=== PATIENT | female | born 1950 | race Caucasian/White ===

== ENCOUNTER → 2017-08-06 07:05 | Outpatient (CLI) | payer OTHER, SELFPAY ==
[2017-08-06 10:37] LABS: Vitamin D,25 Hydroxy 22.5 ng/mL (29.95-100.01)
[2017-08-06 10:45] LABS: Anion Gap 8 (5-15); BUN 22 mg/dL (7-18); BUN/Creat Ratio 26.4 RATIO (10-20); Chloride 103 mmol/L (98-107); Cholesterol 189 mg/dL (200); Creatinine, Serum 0.83 mg/dL (0.55-1.02); EST Glomerular Filtration Rate 73 mL/min (>60); Est Glom Filt Rate - Afr Amer 89 mL/min (>60); Glucose 112 mg/dL (74-106); High Density Lipoprotein 31 mg/dL; Potassium 3.5 mmol/L (3.5-5.1); Sodium Level 140 mmol/L (136-145); Triglycerides 237 mg/dL; Very Low Density Lipoprotein 47 mg/dL (5-40)
== END ==
PROVIDERS: Family Provider Family Medicine; PCP Family Medicine; Visit Provider Family Medicine
DX: I10 Essential (primary) hypertension (principal); E55.9 Vitamin D deficiency, unspecified
CPT/HCPCS: 36415; 80048; 80061; 82306

== ENCOUNTER → 2017-08-11 08:54 | Outpatient (CLI) | payer OTHER, SELFPAY ==
--- NOTE | 2017-08-11 09:01 | RAD_ITS ---
STUDY: X-RAY - RIGHT KNEE REASON FOR EXAM: Female, 66 years old. Osteoarthritis. TECHNIQUE: 4 view(s) of the knee. COMPARISON: None. FINDINGS: Normal visualized distal femur. Degenerative spurring along the medial and lateral tibial plateaus. Normal proximal tibiofibular articulation. There is severe degenerative arthrosis of the medial femorotibial compartment with severe joint space narrowing. Normal lateral femorotibial compartment. There is moderate degenerative arthrosis of the patellofemoral articulation. Small joint effusion. RAD/Knee 4 or More Views IMPRESSION: Degenerative arthrosis. Electronically Signed: Kel Quinn MD at 14:08 EDT Tel [phone], Service support ,
--- NOTE | 2017-08-11 09:02 | RAD_ITS ---
STUDY: X-RAY - LEFT KNEE REASON FOR EXAM: Female, 66 years old. Osteoarthritis. TECHNIQUE: 4 view(s) of the knee. COMPARISON: None. FINDINGS: Degenerative spurring along the lateral compartment of knee joint. Degenerative spurring along the lateral tibial plateau. Normal proximal tibiofibular articulation. There is severe degenerative arthrosis of the medial femorotibial compartment with severe joint space narrowing. There is moderate degenerative arthrosis of the lateral femorotibial compartment with moderate joint space narrowing. There is moderate degenerative arthrosis of the patellofemoral articulation. Small joint effusion. RAD/Knee 4 or More Views IMPRESSION: Degenerative arthrosis. Electronically Signed: Kel Quinn MD at 14:09 EDT Tel [phone], Service support ,
== END ==
PROVIDERS: Family Provider Family Medicine; PCP Family Medicine; Visit Provider Family Medicine
DX: M17.0 Bilateral primary osteoarthritis of knee (principal)
CPT/HCPCS: 73564

== ENCOUNTER → 2018-02-17 16:30 | Outpatient (CLI) | payer OTHER, SELFPAY ==
--- NOTE | 2018-02-17 16:33 | RAD_ITS ---
STUDY: X-RAY - LEFT WRIST REASON FOR EXAM: Female, 67 years old. Left wrist pain gradually getting worse, very painful to move now. Limited movement. TECHNIQUE: 4 view(s) of the wrist were obtained. COMPARISON: None. FINDINGS: Normal visualized distal radius and ulna. Normal radiocarpal articulation. Normal distal radioulnar articulation. Normal carpal bones. Normal carpal articulations. There is minimal degenerative arthrosis of the carpometacarpal articulation of the thumb. Normal second through fifth carpometacarpal articulations. Normal visualized metacarpal bones. The soft tissue structures are unremarkable. RAD/Wrist min 3 Views IMPRESSION: Minimal degenerative changes of the first carpometacarpal joint. Electronically Signed: Kenyetta Bonilla MD at 7:28 EDT , Service support ,
== END ==
PROVIDERS: Family Provider Family Medicine; PCP Family Medicine; Referring Provider Family Medicine; Visit Provider Family Medicine
DX: M18.12 Unilateral primary osteoarthritis of first carpometacarpal joint, left hand (principal)
CPT/HCPCS: 73110

== ENCOUNTER 2018-02-20 07:30 | Outpatient (RCR) | payer OTHER, SELFPAY | END 2018-02-25 23:59 | LOC: NS 07:30 | PROVIDERS: Family Provider Family Medicine; PCP Family Medicine; Visit Provider Specialist | DX: E66.8 Other obesity (principal); Z68.42 Body mass index [BMI] 45.0-49.9, adult; Z71.3 Dietary counseling and surveillance | CPT/HCPCS: 97802; 97803 ==

== ENCOUNTER 2018-02-26 23:00 | Emergency (ER) | payer OTHER, SELFPAY ==
[2018-02-26 23:01] VITALS: BP 139/86; PULSE 69; RESP 24; TEMP 35.9; O2SAT 99; BMI 44.3
[2018-02-26] MEDS: Ondansetron 4 MG/2 ML Vial IV (23:40)
[2018-02-26] MEDS: morphine 8 MG/ML Syringe IV (23:40)
[2018-02-26] MEDS: Ketorolac 15 MG/ML Vial IV (23:40)
[2018-02-27] MEDS: morphine 8 MG/ML Syringe IV (00:42)
[2018-02-27] MEDS: diazePAM 5 MG Tablet PO (00:42)
--- NOTE | 2018-02-27 01:24 | ED.VISSUMM ---
- ER Visit Summary Date of Service: 02/27/18 Chief Complaint: Bilateral low back pain History of Present Illness: The patient is a 67 F who presents with bilateral low back pain that woke him from sleep at 0300. She states she saw Dr. Wililam Raza and was told she will need a knee replacement . She was told she needed to lose weight before he would perform the surgery. She went to the wellness/physical center at [facility]. Her first visit to [facility] was Friday. The pain started morning at 0300. She denies bowel bladder dysfunction. She denies. Anesthesia or anesthesia in the perineal region. She denies foot drop. She denies quadricep weakness. She prefers to sit over standing. She denies fever, chills or night sweats. Denies weight gain or weight loss. She denies radicular pain. Physical Examination: Vital signs noted and blood pressure is elevated at 139/86. BMI is 44.3. HEENT exam is unremarkable. Heart is regular without murmur, gallop or rub. S1 and S2 are normal. Lungs are clear to auscultation with good movement of air bilaterally. Abdomen soft nontender no palpable semester down bruit. There is no asymmetry, swelling, discoloration, leg vein distention, palpable cords or tenderness along the distribution of the deep venous system. Straight leg test is negative right and left. Patella and ankle reflex are 1+ and symmetric. There is no clonus or Babinski sign. DP pulses palpable bilaterally. EHL is intact. Gait was observed and there is no foot drop. There is normal perianal sensation. Test Results: None are indicated and there are no red flags. Emergency Department Course and Treatment: IV was established she was treated initially with Toradol IV push. Reassessment resulted in no improvement. She then received 8 mg of morphine and 5 mg of Valium IV and p.o. respectively. She was reassessed at 1235. She was then reassessed at 0122. She is now able to stand up and ambulate. Patient reports marked improvement. Treatment Plan: Prescription for opiate analgesia. Patient was told to not take the tramadol she was prescribed for her knee pain while on the medication that I prescribed for her. She also received a short course of Valium. Disposition: Discharged home in stable improved condition with spouse Impression: Bilateral low back pain without sciatica This note was generated with [employer] dictation software. It may contain incorrect words, spelling, and punctuation that were not noted in review of the chart prior to signing ED Disposition - Plan for ED Patient: Disposition: Home or Assisted Living Chief Complaint: Back Instructions: ED Sprain Strain Lumbar Prescriptions: Hydrocodone Bitart/Apap 5-325 [[place] 5MG-325MG] 1 tablet PO Q6H PRN PRN 3 Days #10 tablet PRN Reason: Pain Diazepam [Valium] 5 mg PO Q8 PRN 3 Days #10 tablet PRN Reason: Muscle Spasm Referrals: Eduar Terrell MD [Primary Care Provider] - 3-5 Days if not improving Additional Instructions: Return immediately if you are unable to urinate, loss of bowel control, numbness or tingling in your buttocks area or weakness in either leg.
--- NOTE | 2018-02-27 01:28 | ED.DCSUM_ITS ---
- ER Visit Summary Date of Service: 02/27/18 Chief Complaint: Bilateral low back pain History of Present Illness: The patient is a 67 F who presents with bilateral low back pain that woke him from sleep at 0300. She states she saw Dr. William Raza and was told she will need a knee replacement . She was told she needed to lose weight before he would perform the surgery. She went to the wellness/physical center at [facility]. Her first visit to [facility] was Friday. The pain started morning at 0300. She denies bowel bladder dysfunction. She denies. Anesthesia or anesthesia in the perineal region. She denies foot drop. She denies quadricep weakness. She prefers to sit over standing. She denies fever, chills or night sweats. Denies weight gain or weight loss. She denies radicular pain. Physical Examination: Vital signs noted and blood pressure is elevated at 139/86. BMI is 44.3. HEENT exam is unremarkable. Heart is regular without murmur, gallop or rub. S1 and S2 are normal. Lungs are clear to auscultation with good movement of air bilaterally. Abdomen soft nontender no palpable semester down bruit. There is no asymmetry, swelling, discoloration, leg vein distention, palpable cords or tenderness along the distribution of the deep venous system. Straight leg test is negative right and left. Patella and ankle reflex are 1+ and symmetric. There is no clonus or Babinski sign. DP pulses palpable bilaterally. EHL is intact. Gait was observed and there is no foot drop. There is normal perianal sensation. Test Results: None are indicated and there are no red flags. Emergency Department Course and Treatment: IV was established she was treated initially with Toradol IV push. Reassessment resulted in no improvement. She then received 8 mg of morphine and 5 mg of Valium IV and p.o. respectively. She was reassessed at 1235. She was then reassessed at 0122. She is now able to stand up and ambulate. Patient reports marked improvement. Treatment Plan: Prescription for opiate analgesia. Patient was told to not take the tramadol she was prescribed for her knee pain while on the medication that I prescribed for her. She also received a short course of Valium. Disposition: Discharged home in stable improved condition with spouse Impression: Bilateral low back pain without sciatica This note was generated with [employer] dictation software. It may contain incorrect words, spelling, and punctuation that were not noted in review of the chart prior to signing ED Disposition - Plan for ED Patient: Disposition: Home or Assisted Living Chief Complaint: Back Instructions: ED Sprain Strain Lumbar Prescriptions: Hydrocodone Bitart/Apap 5-325 [[place] 5MG-325MG] 1 tablet PO Q6H PRN PRN 3 Days #10 tablet PRN Reason: Pain Diazepam [Valium] 5 mg PO Q8 PRN 3 Days #10 tablet PRN Reason: Muscle Spasm Referrals: Eduar Terrell MD [Primary Care Provider] - 3-5 Days if not improving Additional Instructions: Return immediately if you are unable to urinate, loss of bowel control, numbness or tingling in your buttocks area or weakness in either leg.
== END 2018-02-27 01:41 | disposition home or self-care (01) ==
PROVIDERS: Emergency Provider Emergency Medicine; Family Provider Family Medicine; PCP Family Medicine
DX: M54.5 Low back pain (principal); I10 Essential (primary) hypertension; E66.9 Obesity, unspecified; Z68.41 Body mass index [BMI] 40.0-44.9, adult; Z79.899 Other long term (current) drug therapy
CPT/HCPCS: 96374; 96375; 96376; 99284; A4216; J2405

== ENCOUNTER 2018-03-27 07:30 | Outpatient (RCR) | payer OTHER, SELFPAY | END 2018-03-27 23:59 | LOC: NS 07:30 | PROVIDERS: Family Provider Family Medicine; PCP Family Medicine; Visit Provider Specialist | DX: E66.8 Other obesity (principal); Z68.42 Body mass index [BMI] 45.0-49.9, adult; Z71.3 Dietary counseling and surveillance | CPT/HCPCS: 97803 ==

== ENCOUNTER 2018-04-10 08:19 | Outpatient (RCR) | payer SELFPAY | END 2018-04-27 23:59 | LOC: NS 08:19 | PROVIDERS: Family Provider Family Medicine; PCP Family Medicine; Visit Provider Specialist | DX: E66.8 Other obesity (principal); Z68.42 Body mass index [BMI] 45.0-49.9, adult; Z71.3 Dietary counseling and surveillance | CPT/HCPCS: 97803 ==

== ENCOUNTER → 2018-04-27 12:56 | Outpatient (CLI) | payer OTHER, SELFPAY ==
--- NOTE | 2018-04-27 13:00 | RAD_ITS ---
STUDY: X-RAY CHEST REASON FOR EXAM: Female, 67 years old. Bronchitis. TECHNIQUE: PA and lateral views of the chest. COMPARISON: None. FINDINGS: The lungs are clear and expanded. Scattered calcified granulomas. There is no demonstrated pleural abnormality. Normal size heart. Normal mediastinum and blane. Normal visualized pulmonary arteries. Normal visualized aortic arch and descending thoracic aorta. There are diffuse degenerative changes of the visualized thoracic spine. Normal visualized ribs, clavicles, and shoulders. There is no demonstrated abnormality of the visualized soft tissue structures of the upper abdomen. RAD/Chest PA and Lateral IMPRESSION: Normal x-ray examination of the chest. Electronically Signed: Kel Quinn MD at 13:15 EST Tel [phone], Service support ,
== END ==
PROVIDERS: Family Provider Family Medicine; PCP Family Medicine; Referring Provider Family Medicine; Visit Provider Family Medicine
DX: J40 Bronchitis, not specified as acute or chronic (principal)
CPT/HCPCS: 71046

== ENCOUNTER 2018-05-15 07:30 | Outpatient (RCR) | payer BC, SELFPAY | END 2018-05-15 23:59 | disposition home or self-care (01) | LOC: NS 07:30 | PROVIDERS: Family Provider Family Medicine; PCP Family Medicine; Visit Provider Specialist | DX: E66.8 Other obesity (principal); Z68.42 Body mass index [BMI] 45.0-49.9, adult; Z71.3 Dietary counseling and surveillance | CPT/HCPCS: 97803 ==

== ENCOUNTER 2018-05-20 09:29 | Inpatient (IN) | payer MEDICARE, SELFPAY ==
--- NOTE | 2018-05-04 16:47 | HP.PCM_ITS ---
History and Physical DATE OF SURGERY: 05/20/2018 SCHEDULED PROCEDURE: left total knee arthroplasty HISTORY OF PRESENT ILLNESS: This is a 67-year-old female who has been having ongoing pain for over 10 years in bilateral knees. Patient states her pain is constant, aching, sharp, stabbing, and sore. She has increased pain with going up and down stairs and walking. She has difficult time with activities of daily living including housework and leisure activities such as dancing or hiking. Patient states she currently sleeps in a chair. She has pain over the anterior and medial knee. Patient has been involved in the [employer] weight program and has lost proximally 20 pounds. Patient has tried oral medications consisting of Tylenol arthritis and previous prednisone which helped temporarily. She has had previous corticosteroid injections in July 2017 which only lasted approximately 6 weeks. Patient denies previous surgery on the left knee. We are getting surgical clearance from patient's primary care physician. She currently denies chest pain, shortness of breath, fevers chills, recent infections. Patient does have history of hypertension and untreated abdominal aneurysm. After failing conservative measures and discussing all treatment options with Dr. Price Raza, the patient would like to proceed with a left total knee arthroplasty. REVIEW OF SYSTEMS: ROS: Const: Denies change in appetite, fever and weight change. CV: Reports irregular heartbeat, but denies chest pain and heart murmur. Resp: Reports cough and wheezing, but denies pneumonia, shortness of breath and tuberculosis. GI: Denies constipation, diarrhea, heartburn, nausea, rectal itching, bloody stools and vomiting. : Denies incontinence. Musculo: Reports leg swelling, trouble walking and weakness, but denies pain. Skin: Denies Raynaud's, history of shingles and tattoo. Neuro: Denies ambulatory dysfunction, dizziness, numbness/tingling and tremor. Psych: Denies anxiety, insomnia and stress. Mian/Lymph: Reports past transfusion, but denies anemia and bleeding/bruising tendency. Reviewed and updated. PAST MEDICAL HISTORY: Advance Care Plan: No Advance Directives Effective Date: 02/02/2018 PMH: Medical Problems: Arthritis, High Blood Pressure, Hypercholesterolemia, Osteoporosis Accidents: Fracture - RT ARM A CHILD Surgical Hx: Appendectomy - 1979 BENNY PANTOJA Gallbladder - 1997 KLARISSA JABOR Hysterectomy - 1983 IN [place] (NO DR NAMED) Section Anesthesia Complications: None Assistive Devices: Glasses Reviewed and updated. 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 Personal Habits: Cigarette Use: Former.Smokeless Tobacco: Never Used Smokeless Tobacco.E-Cigarette Use: Former Smoker.Alcohol: Occasionally.Drug Use: Denies Use.Enjoy Exercising: Never Exercises. Reviewed, no changes. VITALS: Ht: 65 Wt: 270lb Wt k.472 BMI: 44.9 BP: 137/87 Pulse: 62 Resp: 18 T: 95.9 T: 35.5C ALLERGIES: Penicillin MEDICATIONS: Celecoxib 200 mg 1 tab by mouth daily with food, Lisinopril-Hydrochlorothiazide 20-25 mg 1 by mouth every day, Acetaminophen 650 mg as needed, Nexium 20 mg 1 by mouth every day PRN, Proair HFA 108 (90 Base) mcg/Act as needed PRE-OP EXAM: General appearance:NORMAL Other: Eyes: Conjunctivae and lids: NORMAL Pupils: ERR Ears, Nose, Mouth, and Throat: NORMAL Other: Inspection of lips, teeth and gums: NORMAL Other: Neck: Examination of neck: no masses noted. Respiratory: Assessment of respiratory effort: NORMAL Other: Auscultation of lungs: clear to auscultation no wheezes, rhonchi or rales. Cardiovascular: Auscultation of heart: regular rate and rhythm, no murmurs, gallops or rubs. Exam of carotid arteries: NORMAL Other: Gastrointestinal: Exam of abdomen: soft, nontender, nondistended bowel sounds present. PHYSICAL EXAMINATION: Patient walks with an antalgic gait. Patient's left knee has medial joint line tenderness. There is moderate effusion. Stable to varus and valgus stress test. Range of motion left knee: Lacks 5 of full extension to 100 flexion. Partial correctable varus alignment bilaterally. IMAGING STUDIES: X-ray of the left knee Reveal left knee with varus alignment and medial joint space narrowing with subchondral sclerosis and osteophyte formation consistent with severe tricompartmental osteoarthritis. IMPRESSION: 1. Severe left knee osteoarthritis 2. Severe right knee osteoarthritis 3. Hypertension 4. Hypercholesterolemia 5. Osteoporosis PLAN: Dr. Price Raza did discuss and review with the patient all treatment options including surgical versus nonsurgical options. Patient does wish to proceed with the above-stated procedure. Potential risks, benefits, and complications of the procedure were discussed in detail including but not limited to , infection, nerve and blood vessel damage, persistent pain, numbness, tingling, paresthesias, blood clot, pulmonary embolism, and requirement for possible further surgery. The patient expressed full understanding and has no further questions for the doctor. Patient does agree to proceed with the above-stated procedure and has signed the surgery consent form. This dictation was created using voice recognition software. Phonetic and/or grammatical errors may exist.. ___ I have re-examined the patient. There are no clinical changes since date of exam. ___ See progress notes for changes. ___ Dictated on admission Date: Time: Signature:
[2018-05-06 08:42] VITALS: BP 124/82; PULSE 60; RESP 18; TEMP 36.7; O2SAT 98; BMI 41.8
--- NOTE | 2018-05-06 08:48 | EKG12_ITS ---
Test Reason : Blood Pressure : / mmHG Vent. Rate : 050 BPM Atrial Rate : 050 BPM P-R Int : 284 ms QRS Dur : 086 ms QT Int : 474 ms P-R-T Axes : 075 -10 079 degrees QTc Int : 432 ms Sinus bradycardia with 1st degree A-V block Otherwise normal ECG Confirmed by JUAN PRIEST, LIO ([id number]), commercial production editor MARYCHUY GARCIA ([id number] on 05/11/2018 10:14:22 AM Referred By: Price Raza Confirmed By:LIO MARTINEZ MD
[2018-05-06 09:50] LABS: Absolute Lymphocyte Count 2.73 X10^3/ul (0.83-4.51); Basophil# 0.03 X10^3/uL; Basophil% 0.3 % (0-1); Eosinophil# 0.23 X10^3/uL; Eosinophils% 1.9 % (0-5); Hematocrit 40.4 % (37-47); Hemoglobin 12.9 g/dl (12.0-15.0); Lymphocyte # 2.73 X10^3/ul (4.0); Mean Corp Hgb Conc 31.9 g/gl (32-36); Mean Corpuscular Hgb 27.9 pg (27.0-32.0); Mean Corpuscular Volume 87.4 fL (81-99); Mean Platelet Vol. 11.6 fl (6.2-12.0); Monocyte# 0.84 X10^3/uL; Monocyte% 7.1 % (0-10); Neutrophil # 8.01 X10^3/uL (2.7-7.7); Neutrophil % 67.4 % (47-70); Platelet Count 303 K/mm3 (150-450); RBC Distribution Width SD 44.3 fl (35.1-43.9); Red Blood Count 4.62 M/mm3 (4.2-5.4); White Blood Count 11.9 K/mm3 (4.4-11.0)
[2018-05-06 09:53] LABS: Anion Gap 9 (5-15); BUN 25 mg/dL (7-18); BUN/Creat Ratio 28.2 RATIO (10-20); Calcium,Total 9.2 mg/dL (8.5-10.1); Chloride 105 mmol/L (98-107); Creatinine, Serum 0.89 mg/dL (0.55-1.02); EST Glomerular Filtration Rate 68 mL/min (>60); Est Glom Filt Rate - Afr Amer 82 mL/min (>60); Estimated Creatinine Clearance 61.28 ml/min; Glucose 106 mg/dL (74-106); POSITIVE COUNT NO; POSITIVE DIFFERENTIAL NO; POSITIVE MORPHOLOGY NO; Potassium 3.7 mmol/L (3.5-5.1); Sodium Level 139 mmol/L (136-145)
--- NOTE | 2018-05-12 12:05 | CASEMGMT ---
Call placed to patients cell phone, no answer. Voicemail left with callback information. Isabela Ma LPN Clinical Support
--- NOTE | 2018-05-13 10:03 | CASEMGMT ---
Received voicemail from patient, called patient back and spoke about discharge needs after surgery. Patient plans to return home, will have assistance from and daughter for 5 days after discharge. Patient has outpatient physical therapy set up and will have assistance with transportation. Patient has a walker, toilet riser, grab bars on toilet riser, and thinks ordered a shower seat. Patient has a bedroom and bathroom on the 1st level of the home. There are 3-4 steps into home from front porch. Informed patient that RN-CM will see patient after surgery to further assist with discharge needs. Patient questioning when she will find out arrival time for surgery, information provided. Isabela Ma LPN Clinical Support
[2018-05-20] VITALS (10 sets, daily range): BP systolic 83–122; BP diastolic 55–88; PULSE 52–64; RESP 16–18; TEMP 36.2–37.5; O2SAT 95–100; BMI 41.8
[2018-05-20] MEDS: oxyCODONE HCl Cr 10 MG Tablet PO (10:13)
[2018-05-20] MEDS: Celecoxib 200 MG Capsule 400 MG PO (10:13)
[2018-05-20] MEDS: Acetaminophen 500 MG Tablet 1000 MG PO ×2 (10:13→21:47)
[2018-05-20] MEDS: Lactated Ringers 1,000 ML 999 ML IV ×2 (10:26→14:24)
--- NOTE | 2018-05-20 12:54 | RAD_ITS ---
STUDY: X-RAY - LEFT KNEE REASON FOR EXAM: Female, 67 years old. Postop TECHNIQUE: 2 view(s) of the knee. COMPARISON: 08/11/2017 FINDINGS: There is no evidence of fracture or dislocation. There are postsurgical changes from right knee arthroplasty. The hardware is intact and alignment is satisfactory. There is subcutaneous fluid and air, consistent with the patient's postoperative state. There are no radiodense foreign bodies. RAD/Knee 1 or 2 Views IMPRESSION: Status post right knee arthroplasty with intact hardware in satisfactory alignment. Subcutaneous air and fluid, consistent with the patient's recent postoperative state. No acute fracture or dislocation. Electronically Signed: Price Gamboa, at 17:59 EST Tel , Service support ,
--- NOTE | 2018-05-20 12:58 | OP.PCM_ITS ---
Report of Operation Date of Procedure: 05/20/18 Pre-Operative Diagnosis: LEFT KNEE PRIMARY OA Post-Operative Diagnosis: LEFT KNEE PRIMARY OA Surgery/Procedure Performed:: LEFT TKA Description of Surgical Findings:: STABLE KNEE GOOD PATELLA TRACKING municipal court magistrate: Chauncey Uribe Type of Anesthesia:: Spinal Anesthesiologist: Abdulaziz Lutz Special Medications: 600 mg clindamycin, 1 g TXA at incision, 1 g TXA closure, 10 mg Decadron, joint cocktail (5 mg Duramorph, 30 mL of 0.5% Ropivicaine, 1000 units of epinephrine, 30 mg of Toradol) Specimen's removed: BONY CUTS Estimated Blood Loss (mL): 50 Fluids Replaced: 1200 ML CRYSTALLOID Description of Procedure: Implants used: 1. Logan size 6 press-fit triathlon cruciate retaining distal femoral component 2. Logan size 5 press-fit tibial baseplate 3. Rosa X3 9 mm CS polyethylene 4. Rosa X3 29 mm asymmetric patella Brief history operative indications: 67-year-old F with history of L knee osteoarthritis with radiographic findings with loss of joint space, osteophyte formation and subchondral sclerosis. Failed conservative measures as mentioned in the H&P. Discussion of total knee arthroplasty as well as risk and benefits were discussed the patient including but not limited to blood loss, DVTs, PEs, neurovascular damage, general risk of anesthesia including loss of life, and stiffness or instability were discussed with patient. Patient demonstrated understanding and was able to sign informed consent. Procedure: On the date of procedure patient's L lower extremity was marked in the preoperative area. The patient was then taken back to the operating room where the patient was placed on the table in the supine position. All bony prominences were identified a well-padded. Anesthesia assumed control of the C-spine and airway and remained controlled throughout the remainder of the procedure. A tourniquet was placed on the L upper thigh and the leg was prepped in a sterile fashion. The surgeon then scrubbed at this time. Upon reentering the room R lower extremity was draped in a standard orthopedic fashion. A timeout was then called and everyone agreed upon the side, the site, the procedure to be performed, patient's identity and antibiotics given. Esmarch bandage was used to exsanguinate the extremity and the tourniquet was placed up to 250 mmHg with the knee in flexion. A midline skin incision was made and sharp dissection was taken down through skin subcutaneous tissue and fat. The standard medial parapatellar incision was made and the patella was subluxed laterally. The standard deep MCL release was done and the fat pad was resected. Next our attention was directed to the femur. Navigation pins were placed, navigation was registered. The distal femoral cutting block was pinned into place and 9 mm of distal femur resection was completed. The distal femoral cut was verified with navigation. The knee was then placed in deep flexion in the standard [employer] sizing guide was used to place the femoral component in 3? external rotation based on the posterior condyles. A size 6 4-in-1 cutting block was selected and pinned into place. The anterior cut was then made and checked for notching. The subsequent anterior chamfer cuts, posterior condylar cuts and posterior chamfer cuts were made while ensuring the MCL and LCL were protected. Our attention was then turned to the tibia where the navigation pins were placed, navigation was registered. [employer] tibial cutting guide was used to make the appropriate tibial cut 90 degrees from the mechanical axis. Navigation was then used to verify the cut. A size 5 tibial base plate was selected. the knee was flexed to 90 degrees and the soft tissues and posterior osteophytes were removed from the joint. 40 cc of the periarticular injection was injected into the posterior medial corner of the joint. The appropriate trials were then placed on the femur and tibia. A trial polyethylene was trialed to ensure proper balancing and stability of the knee. Patella tracking, was then verified and corrected appropriately as needed. The appropriate tibial internal rotation was then marked with a bovie. Our attention was then directed to the patella. The patella was everted and a flat resection was made. The lug holes were drilled and the patella trial was placed. Patellar tracking was checked and deemed appropriate. Once we were happy lug holes were drilled for the femur and trial components were removed. Cement was mixed at this time and the tourniquet was let down the tibia was subluxed and pinned into place and the keel was punched and the canal was reamed. Final components were verified and opened, and cement was mixed in a vacuum. Logan Simplex cement was used. The wound was copiously irrigated with normal saline. When the cement was ready the press-fit components were impacted into place starting with the tibia, femur and finally the patella cemented into place. The trial poly component was placed and the knee was placed in full extension. All excess cement was removed in the process. Once the cement had cured the tracking, alignment and balance were verified and a size 9 mm polyethylene component was placed. Once the final components were placed the wound was copiously irrigated with normal saline solution and the periarticular injection was given. The wound was closed in a layer talamantes fashion using #1 vicryl interrupted sutures for the arthrotomy, 2-0 interrupted Vicryl suture for the subcuticular layer and petra for final skin closure. A sterile compressive dressing was then placed. The patient was then awakened from anesthesia, transferred to the [place] and transferred to the PACU for recovery. Post op plan DVT ppx: ASA 81mg, thigh high compression stockings Follow up: in office in 2 weeks for wound check PT: to start POD #0 at hospital, outpatient PT should be arranged. My physician certified physical therapist assistant was a vital part of this case. He was important in appropriate retraction during the case, and protection of soft tissues during bony cuts. His intimate knowledge of the case and my steps aided in safe and expedient completion of the procedure as well as appropriate position of the leg during the case. He was also vital in assisting with closure under my direct supervision. Grafts/Implants Used: ROSA TRIATHLON - Complications NONE - Admit VTE Documentation VTE Present on Admission: No VTE Mechan Device Prophylaxis: SCD's, Thigh High SONY Hose VTE Pharm Prophylaxis ordered?: Yes
[2018-05-20] MEDS: Scopolamine 1mg/72hr Patch 1 PATCH TD (13:45)
[2018-05-20] MEDS: Lactated Ringers 1,000 ML 125 ML IV ×2 (15:27→21:50)
[2018-05-20] MEDS: oxyCODONE 5 MG Tablet PO ×3 (16:15→21:49)
[2018-05-20] MEDS: Ondansetron 4 MG/2 ML Vial IV (18:46)
[2018-05-20] MEDS: Senna/Docusate Sodium 1 Tablet 2 TABLET PO (21:47)
[2018-05-20] MEDS: Aspirin 81 MG TAB.CHEW PO (21:47)
[2018-05-21 03:53] VITALS: BP 110/58; PULSE 56; RESP 18; TEMP 36.6; O2SAT 98
[2018-05-21] MEDS: Acetaminophen 500 MG Tablet 1000 MG PO ×3 (05:24→21:05)
[2018-05-21 05:58] LABS: Hematocrit 33.7 % (37-47); Hemoglobin 10.6 g/dl (12.0-15.0); Mean Corp Hgb Conc 31.5 g/gl (32-36); Mean Corpuscular Volume 89.2 fL (81-99); Mean Platelet Vol. 11.8 fl (6.2-12.0); Platelet Count 218 K/mm3 (150-450); RBC Distribution Width CV 14.2 % (11.6-14.6); RBC Distribution Width SD 45.9 fl (35.1-43.9); Red Blood Count 3.78 M/mm3 (4.2-5.4); White Blood Count 9.3 K/mm3 (4.4-11.0)
[2018-05-21 06:07] LABS: Scan Indicated on CBC? Y/N NO
[2018-05-21 06:23] LABS: Anion Gap 8 (5-15); BUN 15 mg/dL (7-18); BUN/Creat Ratio 15.8 RATIO (10-20); Calcium,Total 8.1 mg/dL (8.5-10.1); Chloride 104 mmol/L (98-107); Creatinine, Serum 0.95 mg/dL (0.55-1.02); EST Glomerular Filtration Rate 63 mL/min (>60); Est Glom Filt Rate - Afr Amer 76 mL/min (>60); Estimated Creatinine Clearance 57.41 ml/min; Glucose 91 mg/dL (74-106); Potassium 3.4 mmol/L (3.5-5.1); Sodium Level 139 mmol/L (136-145)
[2018-05-21] MEDS: oxyCODONE 5 MG Tablet PO ×4 (06:54→21:06)
[2018-05-21] MEDS: Aspirin 81 MG TAB.CHEW PO ×2 (08:34→15:59)
[2018-05-21] MEDS: Famotidine 20 MG Tablet PO (08:34)
[2018-05-21] MEDS: hydroCHLOROthiazide 25 MG Tablet PO (08:34)
[2018-05-21] MEDS: Senna/Docusate Sodium 1 Tablet 2 TABLET PO ×2 (08:35→21:06)
[2018-05-21] MEDS: Lisinopril 20 MG Tablet PO (08:35)
[2018-05-21] MEDS: Pantoprazole Sodium 20 MG Tablet PO (08:38)
--- NOTE | 2018-05-21 09:08 | PCM.PN.ORT ---
Subjective: The patient was sitting in bedside chair upon examination. Patient denies any chest pain, shortness of breath, dizziness, lightheadedness, nausea or vomiting, or calf pain. Pain is controlled on medications. No adverse overnight events. Patient does report pain in the left knee primarily when she is up walking. Objective: Vital signs stable and afebrile. Patient is able to plantarflex and dorsiflex actively. Sensation is intact to light touch to saphenous, sural, superficial and deep peroneal, and tibial distribution. Dressing is clean dry and intact. Negative Homans bilaterally, negative signs and symptoms of DVT. - Physical Exam General: Alert, Oriented x3, Cooperative, No apparent distress Vital Signs Temp Pulse Resp BP Pulse Ox 98 F 56 L 18 110/58 L 98 05/21/18 03:53 05/21/18 03:53 05/21/18 03:53 05/21/18 03:53 05/21/18 03:53 Oxygen Delivery Method Room Air Weight: 121.3 kg Body Mass Index (BMI) 41.8 Intake and Output for Last 24 Hours 05/19/18 05/20/18 05/21/18 23:59 23:59 23:59 Intake Total 2479 / 2479 2414 / 2414 Output Total 450 / 450 Balance 2479 / 2479 1963 / 1963 Laboratory Tests Past 24 Hrs 05/21/18 05/21/18 05:25 05:25 WBC 9.3 RBC 3.78 L Hgb 10.6 L Hct 33.7 L MCV 89.2 MCH 28.0 MCHC 31.5 L RDW 14.2 RDW Differential 45.9 H Plt Count 218 MPV 11.8 Sodium 139 Potassium 3.4 L Chloride 104 Carbon Dioxide 27.0 Anion Gap 8 BUN 15 Creatinine 0.95 Estim Creat Clear Calc 57.41 Est GFR (MDRD) Af Amer 76 Est GFR (MDRD) Non-Af 63 BUN/Creatinine Ratio 15.8 Glucose 91 Calcium 8.1 L Medical Necessity - Tobacco Use Smoking Status: Former smoker Assessment/Plan 1. S/P left total knee arthroplasty POD #1 2. Continue Pain Medications: Tylenol and OxyIR 3. DVT Prophylaxis: Aspirin 81 mg twice daily with food for 4 weeks postoperatively 4. PT/OT: Weightbearing as tolerated 5. H & H: 10.6/33.7, asymptomatic 6. Encouraged Incentive Spirometry 7. Disposition: Plan will be for possible discharge home tomorrow.
[2018-05-21 09:55] VITALS: BP 105/60; PULSE 60; RESP 16; TEMP 36.7; O2SAT 97
--- NOTE | 2018-05-21 12:29 | CASEMGMT ---
RN CM Assessment Presentation: KA Intro role of CM and purpose of RN CM assessment. PCP: Dr. Terrell Specialists: Dr. Raza, surgeon ortho Preferred Pharmacy: [facility] Insurance: [place] Prescription Benefit: yes LNOK: Living Arrangements: one story home with . Transportation: can drive pt to therapy. DME/HHC: Grab bars, shower chair, walker, raised toilet seat DC PLAN: Home with outpt therapy and family support. No new needs identified. Geraldine BILLINSGN RN ACM
[2018-05-21 15:20] VITALS: BP 125/65; PULSE 68; RESP 16; TEMP 36.8; O2SAT 98
[2018-05-21] MEDS: Ketorolac 15 MG/ML Vial IV (17:12)
[2018-05-21] MEDS: Ondansetron 4 MG/2 ML Vial IV (17:13)
[2018-05-21] MEDS: 0.9% NaCl Peripheral Flush Adult/Peds IV (17:13)
[2018-05-21] MEDS: Meloxicam 7.5 MG Tablet PO (21:06)
[2018-05-21 21:20] VITALS: BP 131/74; PULSE 78; RESP 18; TEMP 37.2; O2SAT 96
[2018-05-22] MEDS: Ketorolac 15 MG/ML Vial IV (02:07)
[2018-05-22 03:20] VITALS: BP 113/68; PULSE 78; RESP 18; TEMP 36.8; O2SAT 96
[2018-05-22] MEDS: Acetaminophen 500 MG Tablet 1000 MG PO (05:44)
[2018-05-22 07:04] LABS: Hematocrit 34.3 % (37-47); Hemoglobin 11.3 g/dl (12.0-15.0); Mean Corp Hgb Conc 32.9 g/gl (32-36); Mean Corpuscular Hgb 28.9 pg (27.0-32.0); Mean Corpuscular Volume 87.7 fL (81-99); Mean Platelet Vol. 12.4 fl (6.2-12.0); Platelet Count 246 K/mm3 (150-450); RBC Distribution Width CV 13.9 % (11.6-14.6); RBC Distribution Width SD 43.6 fl (35.1-43.9); Red Blood Count 3.91 M/mm3 (4.2-5.4); White Blood Count 11.6 K/mm3 (4.4-11.0)
[2018-05-22 07:05] LABS: Scan Indicated on CBC? Y/N NO
--- NOTE | 2018-05-22 07:23 | PN.ORTHO_ITS ---
Subjective: The patient was sitting in bedside chair upon examination. Patient denies any chest pain, shortness of breath, dizziness, lightheadedness, nausea or vomiting, or calf pain. Pain is controlled on medications. No adverse overnight events. Patient states she is doing much better today compared to yesterday. Patient is ready for discharge home today. Objective: Vital signs stable and afebrile. Patient is able to plantarflex and dorsiflex actively. Sensation is intact to light touch to saphenous, sural, superficial and deep peroneal, and tibial distribution. Dressing is clean dry and intact. Negative Homans bilaterally, negative signs and symptoms of DVT. - Physical Exam General: Alert, Oriented x3, Cooperative, No apparent distress Vital Signs Temp Pulse Resp BP Pulse Ox 98.3 F 78 18 113/68 96 05/22/18 03:20 05/22/18 03:20 05/22/18 03:20 05/22/18 03:20 05/22/18 03:20 Oxygen Delivery Method Room Air Weight: 121.3 kg Body Mass Index (BMI) 41.8 Intake and Output for Last 24 Hours 05/20/18 05/21/18 05/22/18 23:59 23:59 23:59 Intake Total 2479 / 2479 3064 / 3064 300 / 300 Output Total 1250 / 1250 600 / 600 Balance 2479 / 2479 1814 / 1814 -300 / -300 Laboratory Tests Past 24 Hrs 05/22/18 06:38 WBC 11.6 H RBC 3.91 L Hgb 11.3 L Hct 34.3 L MCV 87.7 MCH 28.9 MCHC 32.9 RDW 13.9 RDW Differential 43.6 Plt Count 246 MPV 12.4 H Medical Necessity - Tobacco Use Smoking Status: Former smoker Assessment/Plan 1. S/P left total knee arthroplasty POD #2 2. Continue Pain Medications: Tylenol and OxyIR 3. DVT Prophylaxis: Aspirin 81 mg twice daily with food for 4 weeks postoperatively 4. PT/OT: Weightbearing as tolerated 5. H & H: 11.3/34.3, asymptomatic 6. Encouraged Incentive Spirometry 7. Disposition: Orthopedically stable, plan will be for discharge home today. Prescriptions will be E scribed to [facility]. Patient will follow-up per postop instructions. She will begin outpatient physical therapy on Friday.
--- NOTE | 2018-05-22 07:26 | PCM.DC.TKR ---
Discharge Diet: No Restrictions Discharge Activity: May Not Drive May shower in (days): 1 - Turned dressing away from water Ice area for (Minutes): 20 - Every 1-2 hours while awake Weight Bearing Status: Weight bearing as tolerated Elevate: Operative Extremity Additional Activity Instructions:: Wear elastic stockings for 2 weeks after your surgery. Call your doctor if your incision/area has: Continuous Slow Oozing, Sudden Increased Bleeding, Increased Pain/ Swelling, Increased Redness, Foul Smelling Discharge Call your doctor if you observe: Fever of 101 or Higher, Coldness, Increased Pain, Numbness or Tingling, Change in Color, Calf discomfort, Uncontrolled pain Remove Dressing in (days):: 3 - Okay to remove on May 25, 2018 Additional Instructions: Follow [facility] postop instructions Allergies/Adverse Reactions: Allergies Penicillins Allergy (Verified 05/06/18 08:28) Hives Medications to take at Discharge Lisinopril/Hydrochlorothiazide [Zestoretic 20-25 mg Tablet] 1 each PO QHS 03/27/16 Albuterol IH (ProAir) [Proair Hfa] 1 puff INHALATION Q6H PRN PRN 05/06/18 Esomeprazole Mag Trihydrate [Nexium] 20 mg PO DAILY 05/06/18 Acetaminophen [Tylenol] 1,000 mg PO Q8 #90 tablet 05/22/18 Aspirin [Aspirin, Baby] 81 mg PO BIDCM #60 tab.chew 05/22/18 Meloxicam [Mobic] 7.5 mg PO BID #60 tablet 05/22/18 Oxycodone [Oxyir] 5 - 10 mg PO Q4H PRN PRN 5 Days #60 tablet 05/22/18 Senna/Docusate Sodium [Senokot-S] 2 tablet PO BID #20 tablet 05/22/18 The following prescriptions were given: Oxycodone [Oxyir] 5 - 10 mg PO Q4H PRN PRN 5 Days #60 tablet PRN Reason: Mod-Severe Pain (4-10/10) Acetaminophen [Tylenol] 1,000 mg PO Q8 #90 tablet Aspirin [Aspirin, Baby] 81 mg PO BIDCM #60 tab.chew Meloxicam [Mobic] 7.5 mg PO BID #60 tablet Senna/Docusate Sodium [Senokot-S] 2 tablet PO BID #20 tablet Primary Care Physician: Eduar Terrell MD [Primary Care Provider] - Test Results: Test results from this visit will be discussed in further detail at your follow-up appointment, if applicable. Please Follow Up With: [facility] therapy When: 05/25/18 @ 8:00 am with Fortunato Please Follow Up With: Chauncey Uribe PA-C When: 06/03/18 @ 8:15 am
[2018-05-22] MEDS: oxyCODONE 5 MG Tablet PO ×2 (08:37→12:38)
[2018-05-22 08:58] VITALS: BP 98/61; PULSE 60; RESP 18; TEMP 36.6; O2SAT 97
[2018-05-22] MEDS: Meloxicam 7.5 MG Tablet PO (09:13)
[2018-05-22] MEDS: Aspirin 81 MG TAB.CHEW PO (09:13)
[2018-05-22] MEDS: Senna/Docusate Sodium 1 Tablet 2 TABLET PO (09:13)
[2018-05-22] MEDS: Famotidine 20 MG Tablet PO (09:13)
[2018-05-22] MEDS: Pantoprazole Sodium 20 MG Tablet PO (09:15)
--- OUTSIDE RECORDS SUMMARY | 2018-07-22 06:02 | XMS RPT_ITS ---
:1950 Author Organization OHIP Support Name Relationship Address Phone [employer] Unavailable [address] + [place] [address] RAM, SIOBHAN Unavailable [address] + [place] [address] [employer] Unavailable [address] + [place] [address] RAM, SIOBHAN Unavailable [address] + [place] [address] [employer] Unavailable [address] + [place] [address] RAM, SIOBHAN Unavailable [address] + [place] [address] [employer] Unavailable [address] + [place] [address] RAM, SIOBHAN Unavailable [address] + [place] [address] [employer] Unavailable [address] + [place] [address] RAM, SIOBHAN Unavailable [address] + [place] [address] [employer] Unavailable [address] + [place] [address] RAM, SIOBHAN Unavailable [address] + [place] [address] [employer] Unavailable [address] + [place] [address] RAM, SIOBHAN Unavailable [address] + [place] [address] [employer] Unavailable [address] + [place] [address] RAM, SIOBHAN Unavailable [address] + [place] [address] [employer] Unavailable [address] + [place] [address] SIOBHAN RAM Unavailable [address] + [place] [address] [employer] Unavailable [address] + [facility] [address] SIOBHAN RAM Unavailable [address] + [place] [address] Care Team Providers Name Role Phone Joe Terrell Attending Unavailable Nidhi, Joe Referring Unavailable [facility] Unavailable Price Raza Admitting Unavailable Price Raza Attending Unavailable Price Raza Referring Unavailable [facility]available Joe Terrell Attending Unavailable Nidhi, Joe Referring Unavailable Ranney, Christopher Primary Care Unavailable Nidhi, Joe Attending Unavailable [facility] Unavailable Price Raza Attending Unavailable [facility] Unavailable Ranney, Christopher Consulting Unavailable Price Rzaa Attending Unavailable Ranney, Christopher Primary Care Unavailable Ranney, Christopher Consulting Unavailable Nidhi, Joe Attending Unavailable Alexysney, Christopher Referring Unavailable [facility] Unavailable Price Raza Attending Unavailable Ranney, Christopher Primary Care Unavailable Ranney, Christopher Consulting Unavailable [facility], [facility] Unavailable Kern, Robert Attending Unavailable Price Raza Attending Unavailable [facility] Unavailable Ranney, Christopher Consulting Unavailable PROBLEMS PROBLEMS DATE TYPE CONDITION / CODE ATTENDING STATUS SOURCE 05/22/2018 Unknown Z96.652 - Price Raza Active [facility] joint / Repository Z96.652(ICD-10) 05/15/2018 Unknown E66.8 - Other Luz Marina Price Active [facility] obesity / Community E66.8(ICD-10) Hospital Repository 04/27/2018 Unknown J40 - Bronchitis, Ranney, Active [facility] not specified as [facility] acute or chronic Hospital / J40(ICD-10) Repository 02/27/2018 Unknown M54.5 - Low back Kern, Robert Active [facility] pain / Community M54.5(ICD-10) Hospital Repository 02/17/2018 Unknown M25.539 - Pain in Nidhi, Active [facility] / M25.539(ICD-10) Hospital Repository PROCEDURES PROCEDURES No Procedure Records FoundRESULTS RESULTS DISCHARGE INSTRUCTION Observed: 05/22/2018 Status: F Source: [place] 7:27 AM [facility] REPOSITORY [facility] Medical Records Department [address] [place] [address] Instructions for Home/Discharge Instructions 05/22/18 0726 MR#: [id number] Acct: [id number] Name: AMPARO RAM Rep #: [id number] : 1950 67 From: Chauncey Uribe PA-C PCP: Joe Terrell MD Status: ADM IN Discharge Diet: No Restrictions Discharge Activity: May Not Drive May shower in (days): 1 - Turned dressing away from water Ice area for (Minutes): 20 - Every 1-2 hours while awake Weight Bearing Status: Weight bearing as tolerated Elevate: Operative Extremity Additional Activity Instructions:: Wear elastic stockings for 2 weeks after your surgery. Call your doctor if your incision/area has: Continuous Slow Oozing, Sudden Increased Bleeding, Increased Pain/ Swelling, Increased Redness, Foul Smelling Discharge Call your doctor if you observe: Fever of 101 or Higher, Coldness, Increased Pain, Numbness or Tingling, Change in Color, Calf discomfort, Uncontrolled pain Remove Dressing in (days):: 3 - Okay to remove on May 25, 2018 Additional Instructions: Follow [facility] postop instructions Allergies/Adverse Reactions: Allergies Penicillins Allergy (Verified 05/06/18 08:28) Hives Medications to take at Discharge Lisinopril/Hydrochlorothiazide [Zestoretic 20-25 mg Tablet] 1 each PO QHS 03/27/16 Albuterol IH (ProAir) [Proair Hfa] 1 puff INHALATION Q6H PRN PRN 05/06/18 Esomeprazole Mag Trihydrate [Nexium] 20 mg PO DAILY 05/06/18 Acetaminophen [Tylenol] 1,000 mg PO Q8 #90 tablet 05/22/18 Aspirin [Aspirin, Baby] 81 mg PO BIDCM #60 tab.chew 05/22/18 Meloxicam [Mobic] 7.5 mg PO BID #60 tablet 05/22/18 Oxycodone [Oxyir] 5 - 10 mg PO Q4H PRN PRN 5 Days #60 tablet 05/22/18 Senna/Docusate Sodium [Senokot-S] 2 tablet PO BID #20 tablet 05/22/18 The following prescriptions were given: Oxycodone [Oxyir] 5 - 10 mg PO Q4H PRN PRN 5 Days #60 tablet PRN Reason: Mod-Severe Pain (-02/04) Acetaminophen [Tylenol] 1,000 mg PO Q8 #90 tablet Aspirin [Aspirin, Baby] 81 mg PO BIDCM #60 tab.chew Meloxicam [Mobic] 7.5 mg PO BID #60 tablet Senna/Docusate Sodium [Senokot-S] 2 tablet PO BID #20 tablet Primary Care Physician: Eduar Terrell MD [Primary Care Provider] - Test Results: Test results from this visit will be discussed in further detail at your follow-up appointment, if applicable. Please Follow Up With: [facility] When: 05/25/18 @ 8:00 am with Fortunato Please Follow Up With: Chauncey Uribe PA-C When: 06/03/18 @ 8:15 am 05/22/18 0727 <Electronically signed by Chauncey Uribe PA-C> Date Chauncey Uribe PA-C CC: Joe Terrell MD Signed CBC-COMPLETE BLOOD CNT Collected: 05/22/2018 Status: F Source: [place] NO DIFF 6:38 AM [facility] REPOSITORY TYPE CODE TESTS RESULT OUT OF RANGE REFERENCE UNITS LAB L100.1000 4.4-11.0 K/mm3 High WBC 11.6 LAB L100.1200 4.2-5.4 M/mm3 Low RBC 3.91 LAB L100.1300 12.0-15.0 g/dl Low HGB 11.3 LAB L100.1400 37-47 % Low HCT 34.3 LAB L100.1500 81-99 fL Normal MCV 87.7 LAB L100.1600 27.0-32.0 pg Normal MCH 28.9 LAB L100.1700 32-36 g/gl Normal MCHC 32.9 LAB L100.1810 11.6-14.6 % Normal RDW CV 13.9 LAB L100.1820 35.1-43.9 fl Normal RDW SD 43.6 LAB L100.1900 150-450 K/mm3 Normal PLT 246 LAB L100.2000 6.2-12.0 fl High MPV 12.4 Performed By: #### L100.0500 #### [facility] [address] [place], [address] CBC-COMPLETE BLOOD CNT Collected: 05/21/2018 Status: F Source: [place] NO DIFF 5:25 AM [facility] REPOSITORY TYPE CODE TESTS RESULT OUT OF RANGE REFERENCE UNITS LAB L100.1000 4.4-11.0 K/mm3 Normal WBC 9.3 LAB L100.1200 4.2-5.4 M/mm3 Low RBC 3.78 LAB L100.1300 12.0-15.0 g/dl Low HGB 10.6 LAB L100.1400 37-47 % Low HCT 33.7 LAB L100.1500 81-99 fL Normal MCV 89.2 LAB L100.1600 27.0-32.0 pg Normal MCH 28.0 LAB L100.1700 32-36 g/gl Low MCHC 31.5 LAB L100.1810 11.6-14.6 % Normal RDW CV 14.2 LAB L100.1820 35.1-43.9 fl High RDW SD 45.9 LAB L100.1900 150-450 K/mm3 Normal PLT 218 LAB L100.2000 6.2-12.0 fl Normal MPV 11.8 Performed By: #### L100.0500 #### [facility] [address] [place], [address] BASIC METABOLIC Collected: 05/21/2018 Status: F Source: [place] PROFILE (BMP) 5:25 AM [facility] REPOSITORY TYPE CODE TESTS RESULT OUT OF RANGE REFERENCE UNITS LAB L501.0100 74-106 mg/dL Normal GLU 91 Result Comment: Please note revised GLUCOSE reference range effective 2017. LAB L501.1000 7-18 mg/dL Normal BUN 15 LAB L501.1100 0.55-1.02 mg/dL Normal CREAT,SERUM 0.95 Result Comment: The validity of the calculated GFR AND GFRAA in patients over 70 years has not been determined. Clinical correlation is essential. LAB L501.1110 >60 mL/min Normal EST GFR 63 Result Comment: Non- GFR Calc LAB L501.1115 >60 mL/min Normal EST GFR - AA 76 Result Comment: GFR Calc LAB L501.1255 ml/min Normal Estimated CRCL 57.41 LAB L501.1300 10-20 RATIO Normal BUN/CRE 15.8 LAB L501.2200 8.5-10 mg/dL Low .1 CA 8.1 LAB L501.5300 136-14 mmol/L Normal 5 NA 139 LAB L501.5600 3.5-5. mmol/L Low 1 K 3.4 LAB L501.5900 98-107 mmol/L Normal CL 104 LAB L501.6100 21.0-3 mmol/L Normal 2.0 CO2 27.0 LAB L501.6200 5-15 Normal GAP 8 Performed By: #### L500.2500 #### [facility] [address] [place], [address] OPERATIVE REPORT Observed: 05/20/2018 Status: F Source: [place] 1:02 PM [facility] REPOSITORY [facility] Medical Records Department [address] [place] [address] Operative Report 05/20/18 1256 MR#: [id number] Acct: [id number] Name: AMPARO RAM Rep #: [id number] : 1950 67 From: Price Raza MD PCP: Joe Terrell MD Status: ADM IN Location: [place] NL711-5 Report of Operation Date of Procedure: 05/20/18 Pre-Operative Diagnosis: LEFT KNEE PRIMARY OA Post-Operative Diagnosis: LEFT KNEE PRIMARY OA Surgery/Procedure Performed:: LEFT TKA Description of Surgical Findings:: STABLE KNEE GOOD PATELLA TRACKING commercial marketing specialist: Chauncey Uribe Type of Anesthesia:: Spinal Anesthesiologist: Kancherla,Abdulaziz Special Medications: 600 mg clindamycin, 1 g TXA at incision, 1 g TXA closure, 10 mg Decadron, joint cocktail (5 mg Duramorph, 30 mL of 0.5% Ropivicaine, 1000 units of epinephrine, 30 mg of Toradol) Specimen's removed: BONY CUTS Estimated Blood Loss (mL): 50 Fluids Replaced: 1200 ML CRYSTALLOID Description of Procedure: Implants used: 1. Steve size 6 press-fit triathlon cruciate retaining distal femoral component 2. Picayune size 5 press-fit tibial baseplate 3. Steve X3 9 mm CS polyethylene 4. Picayune X3 29 mm asymmetric patella Brief history operative indications: 67-year-old F with history of L knee osteoarthritis with radiographic findings with loss of joint space, osteophyte formation and subchondral sclerosis. Failed conservative measures as mentioned in the H AND P. Discussion of total knee arthroplasty as well as risk and benefits were discussed the patient including but not limited to blood loss, DVTs, PEs, neurovascular damage, general risk of anesthesia including loss of life, and stiffness or instability were discussed with patient. Patient demonstrated understanding and was able to sign informed consent. Procedure: On the date of procedure patient's L lower extremity was marked in the preoperative area. The patient was then taken back to the operating room where the patient was placed on the table in the supine position. All bony prominences were identified a well-padded. Anesthesia assumed control of the C-spine and airway and remained controlled throughout the remainder of the procedure. A tourniquet was placed on the L upper thigh and the leg was prepped in a sterile fashion. The surgeon then scrubbed at this time. Upon reentering the room R lower extremity was draped in a standard orthopedic fashion. A timeout was then called and everyone agreed upon the side, the site, the procedure to be performed, patient's identity and antibiotics given. Esmarch bandage was used to exsanguinate the extremity and the tourniquet was placed up to 250 mmHg with the knee in flexion. A midline skin incision was made and sharp dissection was taken down through skin subcutaneous tissue and fat. The standard medial parapatellar incision was made and the patella was subluxed laterally. The standard deep MCL release was done and the fat pad was resected. Next our attention was directed to the femur. Navigation pins were placed, navigation was registered. The distal femoral cutting block was pinned into place and 9 mm of distal femur resection was completed. The distal femoral cut was verified with navigation. The knee was then placed in deep flexion in the standard BaubleBar sizing guide was used to place the femoral component in 3 external rotation based on the posterior condyles. A size 6 4-in-1 cutting block was selected and pinned into place. The anterior cut was then made and checked for notching. The subsequent anterior chamfer cuts, posterior condylar cuts and posterior chamfer cuts were made while ensuring the MCL and LCL were protected. Our attention was then turned to the tibia where the navigation pins were placed, navigation was registered. [employer] tibial cutting guide was used to make the appropriate tibial cut 90 degrees from the mechanical axis. Navigation was then used to verify the cut. A size 5 tibial base plate was selected. the knee was flexed to 90 degrees and the soft tissues and posterior osteophytes were removed from the joint. 40 cc of the periarticular injection was injected into the posterior medial corner of the joint. The appropriate trials were then placed on the femur and tibia. A trial polyethylene was trialed to ensure proper balancing and stability of the knee. Patella tracking, was then verified and corrected appropriately as needed. The appropriate tibial internal rotation was then marked with a bovie. Our attention was then directed to the patella. The patella was everted and a flat resection was made. The lug holes were drilled and the patella trial was placed. Patellar tracking was checked and deemed appropriate. Once we were happy lug holes were drilled for the femur and trial components were removed. Cement was mixed at this time and the tourniquet was let down the tibia was subluxed and pinned into place and the keel was punched and the canal was reamed. Final components were verified and opened, and cement was mixed in a vacuum. Picayune Simplex cement was used. The wound was copiously irrigated with normal saline. When the cement was ready the press-fit components were impacted into place starting with the tibia, femur and finally the patella cemented into place. The trial poly component was placed and the knee was placed in full extension. All excess cement was removed in the process. Once the cement had cured the tracking, alignment and balance were verified and a size 9 mm polyethylene component was placed. Once the final components were placed the wound was copiously irrigated with normal saline solution and the periarticular injection was given. The wound was closed in a layer talamantes fashion using #1 vicryl interrupted sutures for the arthrotomy, 2-0 interrupted Vicryl suture for the subcuticular layer and petra for final skin closure. A sterile compressive dressing was then placed. The patient was then awakened from anesthesia, transferred to the rfincastle and transferred to the PACU for recovery. Post op plan DVT ppx: ASA 81mg, thigh high compression stockings Follow up: in office in 2 weeks for wound check PT: to start POD #0 at hospital, outpatient PT should be arranged. My physician medical support assistant was a vital part of this case. He was important in appropriate retraction during the case, and protection of soft tissues during bony cuts. His intimate knowledge of the case and my steps aided in safe and expedient completion of the procedure as well as appropriate position of the leg during the case. He was also vital in assisting with closure under my direct supervision. Grafts/Implants Used: STEVE TRIATHLON - Complications NONE - Admit VTE Documentation VTE Present on Admission: No VTE Mechan Device Prophylaxis: SCD's, Thigh High SONY Hose VTE Pharm Prophylaxis ordered?: Yes 05/20/18 1302 <Electronically signed by Price Raza MD> Date Price Raza MD CC: Joe Terrell MD; Price Raza MD Signed KNEE 1 OR 2 VIEWS Observed: 05/20/2018 Status: F Source: [place] 12:56 PM [facility] REPOSITORY [facility] Imaging Services [address] [place] [address] Knee 1 or 2 Views MR#: [id number] Acct: [id number] Name: AMPARO RAM Rep #: [id number] : 1950 F 67 From: Price Gamboa MD PCP: Joe Terrell MD Status: ADM IN Study: Knee 1 or 2 Views Date of Exam: 05/20/18 Exam# [id number] Ordering Dr: Price Raza MD STUDY: X-RAY - LEFT KNEE REASON FOR EXAM: Female, 67 years old. Postop TECHNIQUE: 2 view(s) of the knee. COMPARISON: 08/11/2017 FINDINGS: There is no evidence of fracture or dislocation. There are postsurgical changes from right knee arthroplasty. The hardware is intact and alignment is satisfactory. There is subcutaneous fluid and air, consistent with the patient's postoperative state. There are no radiodense foreign bodies. RAD/Knee 1 or 2 Views IMPRESSION: Status post right knee arthroplasty with intact hardware in satisfactory alignment. Subcutaneous air and fluid, consistent with the patient's recent postoperative state. No acute fracture or dislocation. Electronically Signed: Price Cooper, at 17:59 EST Tel , Service support , CC: Joe Terrell MD; Price Raza MD Publicity Writer: Signed 12 LEAD ELECTROCARDIOGRAM Observed: 05/11/2018 Status: F Source: [place] 10:14 AM [facility] REPOSITORY [facility] Cardiovascular Services [address] [place] [id number] 12 Lead EKG 05/06/18 0905 MR#: [id number] Acct: [id number] Name: AMPARO RAM Rep #: [id number] : 1950 67 From: Papi Cantu MD Attending Dr: Price Raza MD Status: PRE IN Ordering Dr: Price Raza MD Date: 05/06/18 [place] [facility] [place]: F C Admitted: Test Reason : Blood Pressure : / mmHG Vent. Rate : 050 BPM Atrial Rate : 050 BPM P-R Int : 284 ms QRS Dur : 086 ms QT Int : 474 ms P-R-T Axes : 075 -10 079 degrees QTc Int : 432 ms Sinus bradycardia with 1st degree A-V block Otherwise normal ECG Confirmed by PAPI CANTU MD ([id number]), acquisition editor MARYCHUY GARCIA ([id number]) on 05/11/2018 10:14:22 AM Referred By: Price Raza Confirmed By:PAPI CANTU MD 05/11/18 1014 Date Papi Cantu MD CC: Joe Terrell MD; Price Raza MD Signed BASIC METABOLIC Collected: 05/06/2018 Status: F Source: [place] PROFILE (BMP) 9:00 AM [facility] REPOSITORY TYPE CODE TESTS RESULT OUT OF RANGE REFERENCE UNITS LAB L501.0100 74-106 mg/dL Normal GLU 106 Result Comment: Fasting Glucose result from 100 to 125 mg/dL suggests IMPAIRED HOMEOSTASIS per A.D.A. criteria. Please note revised GLUCOSE reference range effective 2017. LAB L501.1000 7-18 mg/dL High BUN 25 LAB L501.1100 0.55-1.02 mg/dL Normal CREAT,SERUM 0.89 Result Comment: The validity of the calculated GFR AND GFRAA in patients over 70 years has not been determined. Clinical correlation is essential. LAB L501.1110 >60 mL/min Normal EST GFR 68 Result Comment: Non- GFR Calc LAB L501.1115 >60 mL/min Normal EST GFR - AA 82 Result Comment: GFR Calc LAB L501.1255 ml/min Normal Estimated CRCL 61.28 LAB L501.1300 10-20 RATIO High BUN/CRE 28.2 LAB L501.2200 8.5-10 mg/dL Normal .1 CA 9.2 LAB L501.5300 136-14 mmol/L Normal 5 NA 139 LAB L501.5600 3.5-5. mmol/L Normal 1 K 3.7 LAB L501.5900 98-107 mmol/L Normal CL 105 LAB L501.6100 21.0-3 mmol/L Normal 2.0 CO2 25.0 LAB L501.6200 5-15 Normal GAP 9 Performed By: #### L500.2500 #### [facility] [address] [place], [place], [id number] CBC W/DIFF, AUTOMATED Collected: 05/06/2018 Status: F Source: [place] 9:00 AM [facility] REPOSITORY TYPE CODE TESTS RESULT OUT OF RANGE REFERENCE UNITS LAB L100.1000 4.4-11.0 K/mm3 High WBC 11.9 LAB L100.1200 4.2-5.4 M/mm3 Normal RBC 4.62 LAB L100.1300 12.0-15.0 g/dl Normal HGB 12.9 LAB L100.1400 37-47 % Normal HCT 40.4 LAB L100.1500 81-99 fL Normal MCV 87.4 LAB L100.1600 27.0-32.0 pg Normal MCH 27.9 LAB L100.1700 32-36 g/gl Low MCHC 31.9 LAB L100.1810 11.6-14.6 % Normal RDW CV 14.0 LAB L100.1820 35.1-43.9 fl High RDW SD 44.3 LAB L100.1900 150-450 K/mm3 Normal PLT 303 LAB L100.2000 6.2-12.0 fl Normal MPV 11.6 LAB L100.2100 47-70 % Normal NEUT% 67.4 LAB L100.2200 19-41 % Normal LY% 23.0 LAB L100.2300 0-10 % Normal MONO% 7.1 LAB L100.2400 0-5 % Normal EO% 1.9 LAB L100.2500 0-1 % Normal BASO% 0.3 LAB L100.2550 0.0-0.9 % Normal IM GRAN % 0.300 Result Comment: IG% - Immature Granulocytes (promyelocytes, myelocytes and metamyelocytes) > 1% indicates that a LEFT SHIFT is Present. LAB L100.2620 2.0-7.7 X10 3/uL High Absolute Neut 8.0 LAB L100.2720 0.83-4.51 X10 3/ul Normal Absolute Lymph 2.73 Performed By: #### L100.0100 #### [facility] [address] [place], [place], [address] Observed: 05/06/2018 Status: F Source: [place] MRSA/SAID SCREEN 9:00 AM [facility] REPOSITORY MRSA/SAID SCRN S. AUREUS S. aureus Negative MRSA MRSA Negative Performed By: #### M100.651 #### [facility] [address] [place], [address] HISTORY AND PHYSICAL Observed: 05/04/2018 Status: F Source: [place] EXAM 4:47 PM [facility] REPOSITORY [facility] Medical Records Department [address] [place] [address] History and Physical 05/04/18 1646 MR#: [id number] Acct: [id number] Name: AMPARO RAM Rep #: [id number] : 1950 67 From: Chauncey Uribe PA-C PCP: Joe Terrell MD Status: PRE IN Y [place] [facility] [place] and Physical DATE OF SURGERY: 05/20/2018 SCHEDULED PROCEDURE: left total knee arthroplasty HISTORY OF PRESENT ILLNESS: This is a 67-year-old female who has been having ongoing pain for over 10 years in bilateral knees. Patient states her pain is constant, aching, sharp, stabbing, and sore. She has increased pain with going up and down stairs and walking. She has difficult time with activities of daily living including housework and leisure activities such as dancing or hiking. Patient states she currently sleeps in a chair. She has pain over the anterior and medial knee. Patient has been involved in the [facility] weight program and has lost proximally 20 pounds. Patient has tried oral medications consisting of Tylenol arthritis and previous prednisone which helped temporarily. She has had previous corticosteroid injections in July 2017 which only lasted approximately 6 weeks. Patient denies previous surgery on the left knee. We are getting surgical clearance from patient's primary care physician. She currently denies chest pain, shortness of breath, fevers chills, recent infections. Patient does have history of hypertension and untreated abdominal aneurysm. After failing conservative measures and discussing all treatment options with Dr. Price Raza, the patient would like to proceed with a left total knee arthroplasty. REVIEW OF SYSTEMS: ROS: Const: Denies change in appetite, fever and weight change. CV: Reports irregular heartbeat, but denies chest pain and heart murmur. Resp: Reports cough and wheezing, but denies pneumonia, shortness of breath and tuberculosis. GI: Denies constipation, diarrhea, heartburn, nausea, rectal itching, bloody stools and vomiting. : Denies incontinence. Musculo: Reports leg swelling, trouble walking and weakness, but denies pain. Skin: Denies Raynaud's, history of shingles and tattoo. Neuro: Denies ambulatory dysfunction, dizziness, numbness/tingling and tremor. Psych: Denies anxiety, insomnia and stress. Mian/Lymph: Reports past transfusion, but denies anemia and bleeding/bruising tendency. Reviewed and updated. PAST MEDICAL HISTORY: Advance Care Plan: No Advance Directives Effective Date: 02/02/2018 PMH: Medical Problems: Arthritis, High Blood Pressure, Hypercholesterolemia, Osteoporosis Accidents: Fracture - RT ARM A CHILD Surgical Hx: Appendectomy - [address] PANTOJA Gallbladder - 1997 [place] Hysterectomy - 1983 [place] (NO DR NAMED) Section Anesthesia Complications: None Assistive Devices: Glasses Reviewed and updated. SOCIAL HISTORY: SH: Marital: .Occupation: [employer].Hand Dominance: Right-handed. Personal Habits: Cigarette Use: Former.Smokeless Tobacco: Never Used Smokeless Tobacco.E-Cigarette Use: Former Smoker.Alcohol: Occasionally.Drug Use: Denies Use.Enjoy Exercising: Never Exercises. Reviewed, no changes. VITALS: Ht: 65 Wt: 270lb Wt k.472 BMI: 44.9 BP: 137/87 Pulse: 62 Resp: 18 T: 95.9 T: 35.5C ALLERGIES: Penicillin MEDICATIONS: Celecoxib 200 mg 1 tab by mouth daily with food, Lisinopril- Hydrochlorothiazide 20-25 mg 1 by mouth every day, Acetaminophen 650 mg as needed, Nexium 20 mg 1 by mouth every day PRN, Proair HFA 108 (90 Base) mcg/Act as needed PRE-OP EXAM: General appearance:NORMAL Other: Eyes: Conjunctivae and lids: NORMAL Pupils: ERR Ears, Nose, Mouth, and Throat: NORMAL Other: Inspection of lips, teeth and gums: NORMAL Other: Neck: Examination of neck: no masses noted. Respiratory: Assessment of respiratory effort: NORMAL Other: Auscultation of lungs: clear to auscultation no wheezes, rhonchi or rales. Cardiovascular: Auscultation of heart: regular rate and rhythm, no murmurs, gallops or rubs. Exam of carotid arteries: NORMAL Other: Gastrointestinal: Exam of abdomen: soft, nontender, nondistended bowel sounds present. PHYSICAL EXAMINATION: Patient walks with an antalgic gait. Patient's left knee has medial joint line tenderness. There is moderate effusion. Stable to varus and valgus stress test. Range of motion left knee: Lacks 5 of full extension to 100 flexion. Partial correctable varus alignment bilaterally. IMAGING STUDIES: X-ray of the left knee Reveal left knee with varus alignment and medial joint space narrowing with subchondral sclerosis and osteophyte formation consistent with severe tricompartmental osteoarthritis. IMPRESSION: 1. Severe left knee osteoarthritis 2. Severe right knee osteoarthritis 3. Hypertension 4. Hypercholesterolemia 5. Osteoporosis PLAN: Dr. Price Raza did discuss and review with the patient all treatment options including surgical versus nonsurgical options. Patient does wish to proceed with the above-stated procedure. Potential risks, benefits, and complications of the procedure were discussed in detail including but not limited to , infection, nerve and blood vessel damage, persistent pain, numbness, tingling, paresthesias, blood clot, pulmonary embolism, and requirement for possible further surgery. The patient expressed full understanding and has no further questions for the doctor. Patient does agree to proceed with the above-stated procedure and has signed the surgery consent form. This dictation was created using voice recognition software. Phonetic and/or grammatical errors may exist.. ___ I have re-examined the patient. There are no clinical changes since date of exam. ___ See progress notes for changes. ___ Dictated on admission Date: Time: Signature: 05/04/181646 <Electronically signed by Chauncey Uribe PA-C> Date Chauncey uHi Signature: Date (if applicable) CC: Joe Terrell MD; Chauncey CADENA Signed CHEST PA AND LATERAL Observed: 04/27/2018 Status: F Source: [place] 1:01 PM [facility] REPOSITORY [facility] Imaging Services [address] [place] [address] Chest PA and Lateral MR#: [id number] Acct: [id number] Name: AMPARO RAM Rep #: [id number] : 1950 F 67 From: Kel Quinn MD PCP: Joe Terrell MD Status: REG CLI Study: Chest PA and Lateral Date of Exam: 04/27/18 Exam# [id number] Ordering Dr: Eduar Terrell MD STUDY: X-RAY CHEST REASON FOR EXAM: Female, 67 years old. Bronchitis. TECHNIQUE: PA and lateral views of the chest. COMPARISON: None. FINDINGS: The lungs are clear and expanded. Scattered calcified granulomas. There is no demonstrated pleural abnormality. Normal size heart. Normal mediastinum and blane. Normal visualized pulmonary arteries. Normal visualized aortic arch and descending thoracic aorta. There are diffuse degenerative changes of the visualized thoracic spine. Normal visualized ribs, clavicles, and shoulders. There is no demonstrated abnormality of the visualized soft tissue structures of the upper abdomen. RAD/Chest PA and Lateral IMPRESSION: Normal x-ray examination of the chest. Electronically Signed: Kel Quinn MD at 13:15 EST Tel [phone], Service support , CC: Joe Terrell MD Publicity Writer: Signed EMERGENCY DEPARTMENT Observed: 02/27/2018 Status: F Source: [place] SUMMARY 1:35 AM [facility] REPOSITORY [facility] Medical Records Department [address] [place] [address] Emergency Department Summary 02/27/18 0124 MR#: [id number] Acct: [id number] Name: AMPARO RAM Rep #: [id number] : 1950 67 From: Robert Kern MD PCP: Joe Terrell MD Status: REG ER - ER Visit Summary Date of Service: 02/27/18 Chief Complaint: Bilateral low back pain History of Present Illness: The patient is a 67 F who presents with bilateral low back pain that woke him from sleep at 0300. She states she saw Dr. William Raza and was told she will need a knee replacement . She was told she needed to lose weight before he would perform the surgery. She went to the wellness/physical center at [facility]. Her first visit to [facility] was Friday. The pain started morning at 0300. She denies bowel bladder dysfunction. She denies. Anesthesia or anesthesia in the perineal region. She denies foot drop. She denies quadricep weakness. She prefers to sit over standing. She denies fever, chills or night sweats. Denies weight gain or weight loss. She denies radicular pain. Physical Examination: Vital signs noted and blood pressure is elevated at 139/86. BMI is 44.3. HEENT exam is unremarkable. Heart is regular without murmur, gallop or rub. S1 and S2 are normal. Lungs are clear to auscultation with good movement of air bilaterally. Abdomen soft nontender no palpable semester down bruit. There is no asymmetry, swelling, discoloration, leg vein distention, palpable cords or tenderness along the distribution of the deep venous system. Straight leg test is negative right and left. Patella and ankle reflex are 1+ and symmetric. There is no clonus or Babinski sign. DP pulses palpable bilaterally. EHL is intact. Gait was observed and there is no foot drop. There is normal perianal sensation. Test Results: None are indicated and there are no red flags. Emergency Department Course and Treatment: IV was established she was treated initially with Toradol IV push. Reassessment resulted in no improvement. She then received 8 mg of morphine and 5 mg of Valium IV and p.o. respectively. She was reassessed at 1235. She was then reassessed at 0122. She is now able to stand up and ambulate. Patient reports marked improvement. Treatment Plan: Prescription for opiate analgesia. Patient was told to not take the tramadol she was prescribed for her knee pain while on the medication that I prescribed for her. She also received a short course of Valium. Disposition: Discharged home in stable improved condition with spouse Impression: Bilateral low back pain without sciatica This note was generated with [employer] dictation software. It may contain incorrect words, spelling, and punctuation that were not noted in review of the chart prior to signing ED Disposition - Plan for ED Patient: Disposition: Home or Assisted Living Chief Complaint: Back Instructions: ED Sprain Strain Lumbar Prescriptions: Hydrocodone Bitart/Apap 5-325 [[place] 5MG-325MG] 1 tablet PO Q6H PRN PRN 3 Days #10 tablet PRN Reason: Pain Diazepam [Valium] 5 mg PO Q8 PRN 3 Days #10 tablet PRN Reason: Muscle Spasm Referrals: Eduar Terrell MD [Primary Care Provider] - 3-5 Days if not improving Additional Instructions: Return immediately if you are unable to urinate, loss of bowel control, numbness or tingling in your buttocks area or weakness in either leg. What to do if you have Problems For any increased pain, shortness of breath, bleeding, nausea or vomiting, chest pain, or any unexpected problems, contact your Primary Care Provider. Call [facility] ([phone]) or report to the closest Emergency Room. Call 911 if necessary. 02/27/18 0135 <Electronically signed by Robert Kern MD> Date Robert Russellignpavel Signature (If Indicated): Date CC: Joe Terrell MD WRIST MIN 3 VIEWS Observed: 02/17/2018 Status: F Source: [place] 4:33 PM [facility] REPOSITORY [facility] Imaging Services [address] [place] [address] Wrist min 3 Views MR#: [id number] Acct: [id number] Name: AMPARO RAM Rep #: [id number] : 1950 F 67 From: Kenyetta Bonilla MD PCP: Joe Terrell MD Status: REG CLI Study: Wrist min 3 Views Date of Exam: 02/17/18 Exam# [id number] Ordering Dr: Eduar Terrell MD STUDY: X-RAY - LEFT WRIST REASON FOR EXAM: Female, 67 years old. Left wrist pain gradually getting worse, very painful to move now. Limited movement. TECHNIQUE: 4 view(s) of the wrist were obtained. COMPARISON: None. FINDINGS: Normal visualized distal radius and ulna. Normal radiocarpal articulation. Normal distal radioulnar articulation. Normal carpal bones. Normal carpal articulations. There is minimal degenerative arthrosis of the carpometacarpal articulation of the thumb. Normal second through fifth carpometacarpal articulations. Normal visualized metacarpal bones. The soft tissue structures are unremarkable. RAD/Wrist min 3 Views IMPRESSION: Minimal degenerative changes of the first carpometacarpal joint. Electronically Signed: Kenyetta Bonilla MD at 7:28 EDT , Service support , CC: Joe Terrell MD Publicity Writer: Signed KNEE 4 OR MORE Observed: 08/11/2017 Status: F Source: [place] VIEWS 9:07 AM [facility] REPOSITORY [facility] Imaging Services [address] [place] [address] Knee 4 or More Views MR#: [id number] Acct: [id number] Name: AMPARO RAM Rep #: [id number] : 1950 F 66 From: Kel Quinn MD PCP: Joe Terrell MD Status: REG CLI Study: Knee 4 or More Views Date of Exam: 08/11/17 Exam# [id number] Ordering Dr: Eduar Terrell MD STUDY: X-RAY - LEFT KNEE REASON FOR EXAM: Female, 66 years old. Osteoarthritis. TECHNIQUE: 4 view(s) of the knee. COMPARISON: None. FINDINGS: Degenerative spurring along the lateral compartment of knee joint. Degenerative spurring along the lateral tibial plateau. Normal proximal tibiofibular articulation. There is severe degenerative arthrosis of the medial femorotibial compartment with severe joint space narrowing. There is moderate degenerative arthrosis of the lateral femorotibial compartment with moderate joint space narrowing. There is moderate degenerative arthrosis of the patellofemoral articulation. Small joint effusion. RAD/Knee 4 or More Views IMPRESSION: Degenerative arthrosis. Electronically Signed: Kel Quinn MD at 14:09 EDT Tel [phone], Service support , CC: Joe Terrell MD Publicity Writer: Signed KNEE 4 OR MORE Observed: 08/11/2017 Status: F Source: [place] VIEWS 9:03 AM [facility] REPOSITORY [facility] Imaging Services [address] [place] [address] Knee 4 or More Views MR#: [id number] Acct: [id number] Name: AMPARO RAM Rep #: [id number] : 1950 F 66 From: Kel Quinn MD PCP: Joe Terrell MD Status: REG CLI Study: Knee 4 or More Views Date of Exam: 08/11/17 Exam# [id number] Ordering Dr: Eduar Terrell MD STUDY: X-RAY - RIGHT KNEE REASON FOR EXAM: Female, 66 years old. Osteoarthritis. TECHNIQUE: 4 view(s) of the knee. COMPARISON: None. FINDINGS: Normal visualized distal femur. Degenerative spurring along the medial and lateral tibial plateaus. Normal proximal tibiofibular articulation. There is severe degenerative arthrosis of the medial femorotibial compartment with severe joint space narrowing. Normal lateral femorotibial compartment. There is moderate degenerative arthrosis of the patellofemoral articulation. Small joint effusion. RAD/Knee 4 or More Views IMPRESSION: Degenerative arthrosis. Electronically Signed: Kel Quinn MD at 14:08 EDT Tel [phone], Service support , CC: Joe Terrell MD Publicity Writer: Signed VITAMIN D,25 HYDROXY Collected: 08/06/2017 Status: F Source: [place] 7:15 AM [facility] REPOSITORY Order Comment: Order Date: 04/07/17 Order Info: 90959-6 - VITD25 TYPE CODE TESTS RESULT OUT OF REFERENCE UNITS RANGE LAB L506.1000 29.95-100.01 ng/mL Low Vitamin D 22.5 25-OH Result Comment: Vitamin D 25(OH) Status Range Deficiency <20 ng/mL (50nmol/L) Insuffciency 20 - 30 ng/mL (50 - 75 nmol/L) Sufficiency 30 - 100 ng/mL (75 - 250 nmol/L) Toxicity >100 ng/mL (>250 nmol/L) Performed By: #### L506.1000, L500.2500, L500.4100 #### [place] [facility] [place], [address] BASIC METABOLIC Collected: 08/06/2017 Status: F Source: [place] PROFILE ([facility]) 7:15 AM [facility] REPOSITORY Order Comment: Order Date: 04/07/17 Order Info: 0667-1 - BMP Order Info: 73672-6 - LIPID TYPE CODE TESTS RESULT OUT OF RANGE REFERENCE UNITS LAB L501.0100 74-106 mg/dL High GLU 112 Result Comment: Fasting Glucose result from 100 to 125 mg/dL suggests IMPAIRED HOMEOSTASIS per A.D.A. criteria. Please note revised GLUCOSE reference range effective 2017. LAB L501.1000 7-18 mg/dL High BUN 22 LAB L501.1100 0.55-1.02 mg/dL Normal CREAT,SERUM 0.83 Result Comment: The validity of the calculated GFR AND GFRAA in patients over 70 years has not been determined. Clinical correlation is essential. LAB L501.1110 >60 mL/min Normal EST GFR 73 Result Comment: Non- GFR Calc LAB L501.1115 >60 mL/min Normal EST GFR - AA 89 Result Comment: GFR Calc LAB L501.1300 10-20 RATIO High BUN/CRE 26.4 LAB L501.2200 8.5-10.1 mg/dL CA Normal 9.0 LAB L501.5300 136-145 mmol/L NA Normal 140 LAB L501.5600 3.5-5.1 mmol/L K Normal 3.5 LAB L501.5900 98-107 mmol/L CL Normal 103 LAB L501.6100 21.0-32.0 mmol/L Normal CO2 29.0 LAB L501.6200 5-15 Normal GAP 8 Performed By: #### L506.1000, L500.2500, L500.4100 #### [facility] [address] [place], [address] LIPID PROFILE Collected: 08/06/2017 Status: F Source: [place] 7:15 AM [facility] REPOSITORY Order Comment: Order Date: 04/07/17 Order Info: 0667-1 - BMP Order Info: 24119-5 - LIPID TYPE CODE TESTS RESULT OUT OF RANGE REFERENCE UNITS LAB L501.4900 200 mg/dL Normal CHOL 189 Result Comment: <200 mg/dL Desirable 200-240 mg/dL Borderline >240 mg/dL High Risk LAB L501.5000 mg/dL High TRIG 237 Result Comment: The drugs N-Acetylcysteine and Metamizole may falsely depress this assay. Serum Triglycerides Reference Interval Normal <150 mg/dL Borderline high 150 - 199 mg/dL High 200 - 499 mg/dL Very High > or = 500 mg/dL LAB L501.6400 mg/dL Low HDL 31 Result Comment: The drugs N-Acetylcysteine and Metamizole may falsely depress this assay. Reference Range HDL <40 mg/dL Low HDL Cholesterol HDL >or= 60 mg/dL High HDL Cholesterol LAB L501.6500 0-130 mg/dL Normal LDL 111 LAB L501.6600 5-40 mg/dL High VLDL 47 Performed By: #### L506.1000, L500.2500, L500.4100 #### [facility] [address] [place], [address] ALLERGIES ALLERGIES DATE TYPE / CODE NAME / CODE REACTION SEVERITY SOURCE 05/06/2018 Drug Penicillins/ Hives Unknown [facility] Allergy/4160 [id number]([facility] [address]397(SNOMED XNORM) Repository CT) ENCOUNTERS ENCOUNTERS ADMIT/DISCHARGE ACCOUNT ADMITTING ENCOUNTER LOCATION SOURCE NUMBER CLASS 05/20/2018/ [id number] Luz Marina, Inpatient [place] 9 9 Price Encounter [facility] ing:AS5Unmb: Repository XB159Nef: 1 05/15/2018 [id number] Ambulatory [place] 1 [facility] ing:NS Repository 04/27/2018 [id number] Ambulatory [place] 6 [facility] ing:MTRAD Repository 04/10/2018/ [id number] Ambulatory [place] 8 9 [facility] ing:NS Repository 03/27/2018/ [id number] Ambulatory [place] 8 1 [facility] ing:NS Repository 02/26/2018/ [id number] Emergency [place] 8 1 [facility] ing:ED Repository 02/20/2018/ [id number] Ambulatory [place] 8 5 [facility] ing:NS Repository 02/17/2018 [id number] Ambulatory [place] 0 [facility] ing:MTRAD Repository 08/11/2017 [id number] Ambulatory [place] 5 [facility] ing:MTRAD Repository 08/06/2017 [id number] Ambulatory [place] 0 [facility] ing:MTLAB Repository PAYERS PAYERS ENCOUNTER GUARANTOR PAYER SUBSCRIBER SOURCE 05/20/2018 JW GAMINGO Primary AMPARO A [address] [address], Insurance:ANTHEM MCGUIREDOB: [place] [address]Fig: MEDICARE [facility] [id number] Hospital Number: Repository () [id number] Date:8906-27-23LJ [facility] [id number] [place] [address]HU: 05/20/2018 Secondary NOT GIVENUNK Bim Insurance:SELF PAY [facility] Number: Effective Repository Date:2018-03-27 05/15/2018 JW AARONREPO Primary AMPARO A [place] [address], Insurance:ANTHEMPolic MCGUIREDOB: [facility] [place] [address]Rew: y Number: [id number] Hospital [id number] Repository () Date:0356-33-19TL [address], [place] [address]KK: 05/15/2018 Secondary NOT GIVENUNK Bim Insurance:SELF PAY [facility] Number: Effective Repository Date:2018-04-28 04/27/2018 JW GAMINGO Primary AMPARO A [place] [address], Insurance:SUMMA MCGUIREDOB: [facility] [place] [address]Zcm: [facility] Number: [id number] Hospital [id number] Repository (HP) Date:5764-31-63[address], [place] [address]DV: 04/27/2018 Secondary AMPARO A B[place] Insurance:COMMERCIAL MCGUIREDOB: [facility] OTHERPolicy Number: [id number] Hospital [id number] Repository Date:0582-38-64[address], [place] [address]LY: 04/27/2018 Tertiary NOT GIVENUNK [place] Insurance:SELF PAY [facility] Number: Effective Repository Date:2018-04-27 04/10/2018 JW J MCGUIREPO Primary NOT GIVENUNK [place] [address] Insurance:[place] [address]Vxy: [facility] Number: Effective Repository (HP) Date:2018-03-28 03/27/2018 JW J MCGUIREPO Primary [facility] [address] Insurance:SUMMA MCGUIREDOB: [place] [address]Txb: [facility]: [id number] Hospital [id number] Repository (HP) Date:0897-77-52ZE [facility] [address] [place] [address]HY: 03/27/2018 Secondary AMPARO A [place] Insurance:STANDARD MCGUIREDOB: [place] LIFE [facility] [id number] Hospital Number: Repository [id number] Date:4416-00-40RS [address] [place] [address]XO: 03/27/2018 Tertiary NOT GIVENUNK Bim Insurance:SELF PAY [facility] Number: Effective Repository Date:2018-02-26 02/26/2018 JW J MCGUIREPO Primary AMPARO A [place] [address], Insurance:SUMMA MCGUIREDOB: [place] [address]Pch: [facility]icy Number: [id number] Hospital [id number] Repository (HP) Date:9363-41-73NH [facility] [place] [address]XL: 02/26/2018 Secondary AMPARO A B[place] Insurance:STANDARD MCGUIREDOB: [place] LIFE ACCIDENTPolicy [id number] Hospital Number: Repository [id number] Date:6517-27-12YO [address]FV[address] [place] [address]BL: 02/26/2018 Tertiary NOT GIVENUNK B[place] Insurance:SELF PAY [facility] Effective Repository Date:2018-02-26 02/20/2018 JW PEREZ Primary AMPARO [place] [address], Insurance:SUMMA MCGUIREDOB: [place] [address]Dmd: CAREPolicy Number: [id number] Hospital [id number] Repository (HP) Date:2710-39-86[address] [address]WZ: 02/20/2018 Secondary AMPARO A [place] Insurance:STANDARD MCGUIREDOB: [place] LIFE ACCIDENTPolicy [id number] Hospital Number: Repository [id number] Date:0660-15-38YM [address] [address]TM: 02/20/2018 Tertiary NOT GIVENUNK [place] Insurance:SELF PAY [facility] Number: Effective Repository Date:2018-02-05 02/17/2018 JW PEREZ Primary AMPARO [place] [address], Insurance:SUMMA MCGUIREDOB: [place] [address]Mgc: CAREPolicy Number: [id number] Hospital [id number] Repository (HP) Date:8704-61-28WL [address] [address]FB: 02/17/2018 Secondary AMPARO A [place] Insurance:STANDARD MCGUIREDOB: [place] LIFE ACCIDENTPolicy [id number] Hospital Number: Repository [id number] Date:2104-13-27IK [address] [address]PG: 02/17/2018 Tertiary NOT GIVENUNK Bim Insurance:SELF PAY [facility] Number: Effective Repository Date:2018-02-17 08/11/2017 JW J MCGUIREPO Primary AMPARO A [place] [address], Insurance:SUMMA CATAUIREDOB: [facility] [place] [address]Eqa: CAREPolicy Number: [id number] Hospital [id number] Repository (HP) Date:7195-17-91CX [address] [address]DT: 08/11/2017 Secondary AMPARO A Bim Insurance:STANDARD MCGUIREDOB: [place] LIFE ACCIDENTPoly [id number] Hospital Number: Repository [id number] Date:5838-89-20WZ [address], [place] [address]CX: 08/11/2017 Tertiary NOT GIVENUNK [place] Insurance:SELF PAY [facility] Number: Effective Repository Date:2017-08-11 08/06/2017 JW J MCGUIREPO Primary AMPARO A [place] [address], Insurance:SUMMA [facility]IHINAUIREDOB: [facility] [place] [address]Nsh: CAREPolicy Number: [id number] Hospital [id number] Repository (HP) Date:3503-75-21HW [address] [address]CD: 08/06/2017 Secondary NOT GIVENUNK Bim Insurance:SELF PAY [facility] Number: Effective Repository Date:2017-08-06
== END 2018-05-22 13:02 | disposition home or self-care (01) | DRG 470 ==
LOC: ACINP 09:33 → MS3 12:49
PROVIDERS: Admitting Provider Specialist; Family Provider Family Medicine; PCP Family Medicine; Referring Provider Specialist; Visit Provider Specialist
PROC: 0SRD0JA Replacement of Left Knee Joint with Synthetic Substitute, Uncemented, Open Approach (ICD-10-PCS; CPT 27447; principal; 2018-05-20 11:00)
DX: M17.0 Bilateral primary osteoarthritis of knee (principal); M81.0 Age-related osteoporosis without current pathological fracture; E78.00 Pure hypercholesterolemia, unspecified; I10 Essential (primary) hypertension; Z87.891 Personal history of nicotine dependence
CPT/HCPCS: 36415; 73560; 80048; 85025; 85027; 87081; 93005; 97110; 97163; 97166; 97530; 97535; 99251; C1776; J7120; A4216; G0463; J2405

== ENCOUNTER 2018-07-15 05:19 | Inpatient (IN) | payer MEDICARE, SELFPAY ==
[2018-05-20 14:55] VITALS: BMI 41.8
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
[2018-07-03 11:28] VITALS: BP 109/63; PULSE 68; RESP 16; TEMP 37.2; O2SAT 97; BMI 42.1
[2018-07-03 12:05] LABS: Absolute Lymphocyte Count 1.74 X10^3/ul (0.83-4.51); Absolute Neutrophil Count 5.3 X10^3/uL (2.0-7.7); Basophil# 0.05 X10^3/uL; Basophil% 0.6 % (0-1); Eosinophil# 0.21 X10^3/uL; Eosinophils% 2.7 % (0-5); Hematocrit 37.4 % (37-47); Hemoglobin 11.7 g/dl (12.0-15.0); Lymphocyte # 1.74 X10^3/ul (4.0); Mean Corp Hgb Conc 31.3 g/gl (32-36); Mean Corpuscular Hgb 27.3 pg (27.0-32.0); Mean Corpuscular Volume 87.4 fL (81-99); Mean Platelet Vol. 10.9 fl (6.2-12.0); Monocyte# 0.62 X10^3/uL; Monocyte% 7.8 % (0-10); Neutrophil # 5.27 X10^3/uL (2.7-7.7); Neutrophil % 66.6 % (47-70); POSITIVE COUNT NO; POSITIVE DIFFERENTIAL NO; POSITIVE MORPHOLOGY NO; Platelet Count 336 K/mm3 (150-450); RBC Distribution Width CV 14.1 % (11.6-14.6); RBC Distribution Width SD 44.7 fl (35.1-43.9); Red Blood Count 4.28 M/mm3 (4.2-5.4); White Blood Count 7.9 K/mm3 (4.4-11.0)
[2018-07-03 12:31] LABS: BUN 18 mg/dL (7-18); Creatinine, Serum 0.88 mg/dL (0.55-1.02); Estimated Creatinine Clearance 57.35 ml/min; Glucose 119 mg/dL (74-106)
[2018-07-03 12:32] LABS: Anion Gap 7 (5-15); BUN/Creat Ratio 20.5 RATIO (10-20); Calcium,Total 8.9 mg/dL (8.5-10.1); Chloride 104 mmol/L (98-107); EST Glomerular Filtration Rate 69 mL/min (>60); Est Glom Filt Rate - Afr Amer 83 mL/min (>60); Potassium 3.3 mmol/L (3.5-5.1); Sodium Level 138 mmol/L (136-145)
--- NOTE | 2018-07-06 09:56 | NURSING ---
MESSAGE LEFT WITH PATIENT INSTRUCTING HER TO INCREASE HER POTASSIUM RICH FOOD INTAKE OVER THE NEXT COUPLE WEEKS PRIOR TO SURGERY. POTASSIUM LEVEL WILL BE RECHECKED DAY OF SURGERY.
[2018-07-15] VITALS (18 sets, daily range): BP systolic 112–140; BP diastolic 61–83; PULSE 58–72; RESP 16–18; TEMP 36.4–36.9; O2SAT 93–100; BMI 42.1
[2018-07-15] MEDS: Acetaminophen 500 MG Tablet 1000 MG PO ×3 (05:56→21:14)
[2018-07-15] MEDS: oxyCODONE HCl Cr 10 MG Tablet PO (05:56)
[2018-07-15] MEDS: Celecoxib 200 MG Capsule 400 MG PO (05:57)
[2018-07-15 06:13] LABS: Potassium 3.3 mmol/L (3.5-5.1)
[2018-07-15] MEDS: Lactated Ringers 1,000 ML 999 ML IV (06:30)
[2018-07-15] MEDS: Cefazolin 2 GM in 0.9% Normal Saline 100 ML IV (07:15)
--- NOTE | 2018-07-15 08:40 | PCM.OPRPT ---
Report of Operation Date of Procedure: 07/15/18 Pre-Operative Diagnosis: Right knee primary osteoarthritis Post-Operative Diagnosis: Right knee primary osteoarthritis Surgery/Procedure Performed:: Right total knee replacement Description of Surgical Findings:: Stable knee with good patella tracking, press-fit implants insecticide supervisor: Dannie Garcia Type of Anesthesia:: Spinal Anesthesiologist: John Kirby Special Medications: 2 g Ancef, 1 g TXA at incision, 1 g TXA closure, 10 mg Decadron, joint cocktail (5 mg Duramorph, 30 mL of 0.5% Ropivicaine, 1000 units of epinephrine, 30 mg of Toradol) Specimen's removed: Bony cuts Estimated Blood Loss (mL): 30 Fluids Replaced: 1 L crystalloid Description of Procedure: Implants used: 1. Rosa size 5 press-fit triathlon cruciate retaining distal femoral component 2. [place] size 5 press-fit tibial baseplate 3. Rosa X3 9 mm CS polyethylene 4. [place] X3 32 mm asymmetric patella Brief history operative indications: 67-year-old f with history of Right knee osteoarthritis with radiographic findings with loss of joint space, osteophyte formation and subchondral sclerosis. Failed conservative measures as mentioned in the H&P. Discussion of total knee arthroplasty as well as risk and benefits were discussed the patient including but not limited to blood loss, DVTs, PEs, neurovascular damage, general risk of anesthesia including loss of life, and stiffness or instability were discussed with patient. Patient demonstrated understanding and was able to sign informed consent. Procedure: On the date of procedure patient's right lower extremity was marked in the preoperative area. The patient was then taken back to the operating room where the patient was placed on the table in the supine position. All bony prominences were identified a well-padded. Anesthesia assumed control of the C-spine and airway and remained controlled throughout the remainder of the procedure. A tourniquet was placed on the right upper thigh and the leg was prepped in a sterile fashion. The surgeon then scrubbed at this time .Upon reentering the room right lower extremity was draped in a standard orthopedic fashion. A timeout was then called and everyone agreed upon the side, the site, the procedure to be performed, patient's identity and antibiotics given. Esmarch bandage was used to exsanguinate the extremity and the tourniquet was placed up to 250 mmHg with the knee in flexion. A midline skin incision was made and sharp dissection was taken down through skin subcutaneous tissue and fat. The standard medial parapatellar incision was made and the patella was subluxed laterally. The standard deep MCL release was done and the fat pad was resected. Next our attention was directed to the femur. Navigation pins were placed, navigation was registered. The distal femoral cutting block was pinned into place and 9 mm of distal femur resection was completed. The distal femoral cut was verified with navigation. The knee was then placed in deep flexion in the standard Gonna[place] sizing guide was used to place the femoral component in 3? external rotation based on the posterior condyles. A size 5 4-in-1 cutting block was selected and pinned into place. The anterior cut was then made and checked for notching. The subsequent anterior chamfer cuts, posterior condylar cuts and posterior chamfer cuts were made while ensuring the MCL and LCL were protected. Our attention was then turned to the tibia where the [place] tibial cutting guide was used to make the appropriate tibial cut 90 degrees from the mechanical axis. Navigation was then used to verify the cut. A size 5 tibial base plate was selected. the knee was flexed to 90 degrees and the soft tissues and posterior osteophytes were removed from the joint. 40 cc of the periarticular injection was injected into the posterior medial corner of the joint. The appropriate trials were then placed on the femur and tibia. A trial polyethylene was trialed to ensure proper balancing and stability of the knee. Patella tracking, was then verified and corrected appropriately as needed. The appropriate tibial internal rotation was then marked with a bovie. Our attention was then directed to the patella. The patella was everted and a flat resection was made. The lug holes were drilled and the patella trial was placed. Patellar tracking was checked and deemed appropriate. Once we were happy lug holes were drilled for the femur and trial components were removed. Cement was mixed at this time and the tourniquet was let down the tibia was subluxed and pinned into place and the keel was punched and the canal was reamed. Final components were verified and opened, and cement was mixed in a vacuum. Rosa Simplex cement was used. The wound was copiously irrigated with normal saline. When the cement was ready the press-fit components were impacted into place starting with the tibia, femur and finally the patella cemented into place. The trial poly component was placed and the knee was placed in full extension. All excess cement was removed in the process. Once the cement had cured the tracking, alignment and balance were verified and a size 9 mm polyethylene component was placed. Once the final components were placed the wound was copiously irrigated with normal saline solution and the periarticular injection was given. The wound was closed in a layer talamantes fashion using #1 vicryl interrupted sutures for the arthrotomy, 2-0 interrupted Vicryl suture for the subcuticular layer and petar for final skin closure. A sterile compressive dressing was then placed. The patient was then awakened from anesthesia, transferred to the rlaurier and transferred to the PACU for recovery. Post op plan DVT ppx: ASA 81mg, thigh high compression stockings Follow up: in office in 2 weeks for wound check PT: to start POD #0 at hospital, outpatient PT should be arranged. Grafts/Implants Used: [place] press-fit cruciate retaining triathlon total knee - Complications No intraoperative complications - Admit VTE Documentation VTE Present on Admission: No VTE Mechan Device Prophylaxis: SCD's, Thigh High SONY Hose VTE Pharm Prophylaxis ordered?: Yes
--- NOTE | 2018-07-15 08:43 | OP.PCM_ITS ---
Report of Operation Date of Procedure: 07/15/18 Pre-Operative Diagnosis: Right knee primary osteoarthritis Post-Operative Diagnosis: Right knee primary osteoarthritis Surgery/Procedure Performed:: Right total knee replacement Description of Surgical Findings:: Stable knee with good patella tracking, press-fit implants account development manager: Dannie Garcia Type of Anesthesia:: Spinal Anesthesiologist: John Kirby Special Medications: 2 g Ancef, 1 g TXA at incision, 1 g TXA closure, 10 mg Decadron, joint cocktail (5 mg Duramorph, 30 mL of 0.5% Ropivicaine, 1000 units of epinephrine, 30 mg of Toradol) Specimen's removed: Bony cuts Estimated Blood Loss (mL): 30 Fluids Replaced: 1 L crystalloid Description of Procedure: Implants used: 1. Rosa size 5 press-fit triathlon cruciate retaining distal femoral component 2. [place] size 5 press-fit tibial baseplate 3. Rosa X3 9 mm CS polyethylene 4. [place] X3 32 mm asymmetric patella Brief history operative indications: 67-year-old f with history of Right knee osteoarthritis with radiographic findings with loss of joint space, osteophyte formation and subchondral sclerosis. Failed conservative measures as mentioned in the H&P. Discussion of total knee arthroplasty as well as risk and benefits were discussed the patient including but not limited to blood loss, DVTs, PEs, neurovascular damage, general risk of anesthesia including loss of life, and stiffness or instability were discussed with patient. Patient demonstrated understanding and was able to sign informed consent. Procedure: On the date of procedure patient's right lower extremity was marked in the preoperative area. The patient was then taken back to the operating room where the patient was placed on the table in the supine position. All bony prominences were identified a well-padded. Anesthesia assumed control of the C-spine and airway and remained controlled throughout the remainder of the procedure. A tourniquet was placed on the right upper thigh and the leg was prepped in a sterile fashion. The surgeon then scrubbed at this time .Upon reentering the room right lower extremity was draped in a standard orthopedic fashion. A timeout was then called and everyone agreed upon the side, the site, the pro cedure to be performed, patient's identity and antibiotics given. Esmarch bandage was used to exsanguinate the extremity and the tourniquet was placed up to 250 mmHg with the knee in flexion. A midline skin incision was made and sharp dissection was taken down through skin subcutaneous tissue and fat. The standard medial parapatellar incision was made and the patella was subluxed laterally. The standard deep MCL release was done and the fat pad was resected. Next our attention was directed to the femur. Navigation pins were placed, navigation was registered. The distal femoral cutting block was pinned into place and 9 mm of distal femur resection was completed. The distal femoral cut was verified with navigation. The knee was then placed in deep flexion in the standard Notes[employer] sizing guide was used to place the femoral component in 3? external rotation based on the posterior condyles. A size 5 4-in-1 cutting block was selected and pinned into place. The anterior cut was then made and checked for notching. The subsequent anterior chamfer cuts, posterior condylar cuts and posterior chamfer cuts were made while ensuring the MCL and LCL were protected. Our attention was then turned to the tibia where the [employer] tibial cutting guide was used to make the appropriate tibial cut 90 degrees from the mechanical axis. Navigation was then used to verify the cut. A size 5 tibial base plate was selected. the knee was flexed to 90 degrees and the soft tissues and posterior osteophytes were removed from the joint. 40 cc of the periarticular injection was injected into the posterior medial corner of the joint. The appropriate trials were then placed on the femur and tibia. A trial polyethylene was trialed to ensure proper balancing and stability of the knee. Patella tracking, was then verified and corrected appropriately as needed. The appropriate tibial internal rotation was then marked with a bovie. Our attention was then directed to the patella. The patella was everted and a flat resection was made. The lug holes were drilled and the patella trial was placed. Patellar tracking was checked and deemed appropriate. Once we were happy lug holes were drilled for the femur and trial components were removed. Cement was mixed at this time and the tourniquet was let down the tibia was subluxed and pinned into place and the keel was punched and the canal was reamed. Final components were verified and opened, and cement was mixed in a vacuum. [place] Simplex cement was used. The wound was copiously irrigated with normal saline. When the cement was ready the press-fit components were impacted into place starting with the tibia, femur and finally the patella cemented into place. The trial poly component was placed and the knee was placed in full extension. All excess cement was removed in the process. Once the cement had cured the tracking, alignment and balance were verified and a size 9 mm polyethylene component was placed. Once the final components were placed the wound was copiously irrigated with normal saline solution and the periarticular injection was given. The wound was closed in a layer talamantes fashion using #1 vicryl interrupted sutures for the arthrotomy, 2-0 interrupted Vicryl suture for the subcuticular layer and petra for final skin closure. A sterile compressive dressing was then placed. The patient was then awakened from anesthesia, transferred to the [facility] and transferred to the PACU for recovery. Post op plan DVT ppx: ASA 81mg, thigh high compression stockings Follow up: in office in 2 weeks for wound check PT: to start POD #0 at hospital, outpatient PT should be arranged. Grafts/Implants Used: [place] press-fit cruciate retaining triathlon total knee - Complications No intraoperative complications - Admit VTE Documentation VTE Present on Admission: No VTE Mechan Device Prophylaxis: SCD's, Thigh High SONY Hose VTE Pharm Prophylaxis ordered?: Yes
--- NOTE | 2018-07-15 09:25 | RAD_ITS ---
STUDY: X-RAY - RIGHT KNEE REASON FOR EXAM: Postop right knee. TECHNIQUE: 2 view(s) of the knee. COMPARISON: Radiographs 08/11/2017. FINDINGS: There is a right total knee arthroplasty without evidence of complication. There is postoperative gas in the soft tissues and overlying skin petra. RAD/Knee 1 or 2 Views IMPRESSION: Uncomplicated right total knee arthroplasty. Electronically Signed: Kwaku Brush MD at 13:05 EDT Tel , Service support ,
[2018-07-15] MEDS: Scopolamine 1mg/72hr Patch 1 PATCH TD (09:46)
--- NOTE | 2018-07-15 10:11 | EKG12_ITS ---
Test Reason : SOB Blood Pressure : / mmHG Vent. Rate : 062 BPM Atrial Rate : 062 BPM P-R Int : 280 ms QRS Dur : 098 ms QT Int : 464 ms P-R-T Axes : 077 011 070 degrees QTc Int : 470 ms Sinus rhythm with 1st degree A-V block Low voltage QRS Nonspecific ST and T wave abnormality Confirmed by JUAN PRIEST, LIO ([id number]), rewrite editor CATE MITTAL ([id number]) on 07/17/2018 9:49:59 AM Referred By: Price Raza Confirmed By:LIO MARTINEZ MD
--- NOTE | 2018-07-15 10:35 | RAD_ITS ---
STUDY: X-RAY CHEST REASON FOR EXAM: Female, 67 years old. Shortness of breath after total knee TECHNIQUE: Single AP portable view of the chest. COMPARISON: None. FINDINGS: The lungs are clear and expanded. There is no demonstrated pleural abnormality. Normal size heart. Normal mediastinum and blane. Normal visualized pulmonary arteries. Normal visualized aortic arch and descending thoracic aorta. Normal visualized thoracic spine. Normal visualized ribs, clavicles, and shoulders. There is no demonstrated abnormality of the visualized soft tissue structures of the upper abdomen. RAD/Chest 1 View (Portable) IMPRESSION: Normal x-ray examination of the chest. Electronically Signed: Edd Leon DO at 10:53 EDT Tel , Service support ,
[2018-07-15 10:56] LABS: D-Dimer Quantitative (DVT/PE) 1.63 FEU/ug/m (0.27-0.49)
--- NOTE | 2018-07-15 10:59 | NURSING ---
Noelle VELEZ in PACU informed lab called DDimer as elevated at 1.63
--- NOTE | 2018-07-15 11:06 | CT_ITS ---
STUDY: CTA CHEST REASON FOR EXAM: Female, 67 years old. Elevated d-dimer RADIATION DOSAGE (If Supplied By Facility): CTDIvol = ( 12.67 ) mGy, DLP = ( 546.88 ) mGycm TECHNIQUE: The examination was performed with the intravenous administration of Isovue 370 100ml IV. Post-processing of the angiographic images was performed, with multiplanar reformation and 3D reconstruction. Individualized dose optimization techniques were used for this CT. COMPARISON: None. FINDINGS: Normal enhancement of the main pulmonary artery and right and left pulmonary arteries. Normal enhancement of the bilateral peripheral pulmonary arteries. There is no demonstrated pulmonary embolism. Normal thoracic aorta and visualized great vessels. There is no demonstrated aortic dissection. Mild cardiomegaly. Normal pericardium. Normal mediastinum. Normal hilar regions. Normal visualized trachea and bronchi. The lungs are well expanded. Normal pulmonary parenchyma. Normal pleura. Normal chest wall structures. There are degenerative changes of thoracic spine. Normal visualized upper abdomen. CT/CTA Chest W/WO Contrast IMPRESSION: Normal CTA chest examination, without a demonstrated pulmonary embolism or arterial dissection. Electronically Signed: Edd Leon DO at 12:30 EDT Tel , Service support ,
--- NOTE | 2018-07-15 13:41 | PCM.CONS.GEN ---
Problem List (1) Acute respiratory distress Status: Acute Reason for Consult Date of Consultation: 07/15/18 Reason for Consultation: respiratory distress. History of Present Illness: The patient is a 67 year old F underwent a right TKA. Post-op, she experienced respiratory distress with hypoxia. She underwent a CTA that was negative. Improved, put still on oxygen. She has never been evaluated for LATRICIA, but does endorse that she snores. No recent URI, F/C.[] Past Medical History Past Medical History (Chronic Problems): Chronic Problems HTN (hypertension) (Chronic) Diverticulitis of sigmoid colon (Chronic) Allergies Penicillins Allergy (Verified 07/03/18 11:23) Hives Home Medications: Ambulatory Orders Medication Instructions Recorded Lisinopril/Hydrochlorothiazide 1 each PO QHS 03/27/16 [Zestoretic 20-25 mg Tablet] Albuterol IH (ProAir) [Proair Hfa] 1 puff INHALATION Q6H PRN PRN 05/06/18 Esomeprazole Mag Trihydrate 20 mg PO DAILY 05/06/18 [Nexium] Acetaminophen [Tylenol] 1,000 mg PO Q8 07/03/18 Oxycodone [Oxyir] 5 - 10 mg PO Q4H PRN PRN 07/03/18 Polyethylene Glycol 3350 [Miralax] 17 gm PO DAILY 07/03/18 Surgical History: appendectomy, cholecystectomy, hysterectomy Lives: Spouse/ Significant Other Smoking Status: Never smoker Tobacco Use: Non-smoker Alcohol: Rare Drugs: None - *Family History Maternal History Items: Heart Disease Review of Systems Constitutional: Denies: Anorexia, Chills, Fever Eyes: Denies: Blurred vision, Double vision HEENT: Denies: Head Aches, Sinus Congestion, Sinus Drainage Cardiovascular: Denies: Chest Pain, Palpitations Respiratory: Reports: Shortness of Breath. Denies: Cough, Shortness of breath at rest, Sputum production Gastrointestinal: Denies: Abdominal Pain, Nausea, Vomiting Genitourinary: Denies: Dysuria Musculoskeletal: Denies: Joint Pain, Joint Tenderness Skin: Denies: Rash, Wounds Neurological: Denies: Numbness, Tingling, Focal weakness Psychiatric: Denies: Anxiety, Depression Hematologic/ Lymphatic: Denies: Easy Bruising, Easy Bleeding, Hx of blood clot Comment: A 10 point review of systems were negative except as mentioned in the history of present illness and the other review of systems. Patient Problems: Active and Suspected Problems Acute respiratory distress (Acute) - Physical Exam General: Alert, No apparent distress HEENT: Atraumatic, Normocephalic Oral: Moist Mucosa, No Gingival or Mucosal Lesions/ Ulcerations Neck: No Nodes, Thyroid Normal Size and Texture Lungs: Clear to auscultation, Normal air movement, No rhonchi, No wheeze Cardiovascular: Regular rate, Regular Rhythm, Normal S1, Normal S2, No murmurs Abdomen: Bowel Sounds Present, Soft, Non Tender, Non-Distended, No Hepato-splenomegaly Extremities: No edema, No Calf Tenderness Skin: No rashes, No breakdown Musculoskeletal: No Muscle Wasting Psych/Mental Status: Normal Affect, Appropriate Vital Signs Temp Pulse Resp BP Pulse Ox 36.7 C 66 16 131/63 H 98 07/15/18 13:17 07/15/18 13:17 07/15/18 13:17 07/15/18 13:17 07/15/18 13:17 Oxygen Flow Rate (L/min) 2 Oxygen Delivery Method Room Air Weight: 116.573 kg Body Mass Index (BMI) 42.1 Intake and Output for Last 24 Hours 07/13/18 07/14/18 07/15/18 23:59 23:59 23:59 Intake Total 1999 Balance 1999 Laboratory Tests Past 24 Hrs 07/15/18 07/15/18 07/15/18 05:52 10:25 10:25 D-Dimer Quant (PE/DVT) 1.63 H* Potassium 3.3 L Troponin I < 0.015 Clinical Impression(s) from Imaging Studies Knee X-Ray 07/15/18 09:25 IMPRESSION: Uncomplicated right total knee arthroplasty. Electronically Signed: Kwaku Brush MD at 13:05 EDT Tel , Service support , Chest X-Ray 07/15/18 10:35 IMPRESSION: Normal x-ray examination of the chest. Electronically Signed: Edd Leon DO at 10:53 EDT Tel , Service support , Chest CTA 07/15/18 11:06 IMPRESSION: Normal CTA chest examination, without a demonstrated pulmonary embolism or arterial dissection. Electronically Signed: Edd Leon DO at 12:30 EDT Tel , Service support , Assessment/Plan All Active Problems Acute respiratory distress (Acute) 1. acute respiratory distress: likely due to medications and probably undiagnosed LATRICIA. CTA negative minimize potentiating medications incentive spirometer follow up with PCP or pulmonology for polysomnogram 2. HTN: continue home medications. 3. s/p R TKA: per orthopaedics 4. DVT proph: ASA 81 BID. Code Visit Inpatient E&M: 91173 Init Hosp L2
--- NOTE | 2018-07-15 13:45 | CON.PCM_ITS ---
Problem List (1) Acute respiratory distress Status: Acute Reason for Consult Date of Consultation: 07/15/18 Reason for Consultation: respiratory distress. History of Present Illness: The patient is a 67 year old F underwent a right TKA. Post-op, she experienced respiratory distress with hypoxia. She underwent a CTA that was negative. Improved, put still on oxygen. She has never been evaluated for LATRICIA, but does endorse that she snores. No recent URI, F/C.[] Past Medical History Past Medical History (Chronic Problems): Chronic Problems HTN (hypertension) (Chronic) Diverticulitis of sigmoid colon (Chronic) Allergies Penicillins Allergy (Verified 07/03/18 11:23) Hives Home Medications: Ambulatory Orders Medication Instructions Recorded Lisinopril/Hydrochlorothiazide 1 each PO QHS 03/27/16 [Zestoretic 20-25 mg Tablet] Albuterol IH (ProAir) [Proair Hfa] 1 puff INHALATION Q6H PRN PRN 05/06/18 Esomeprazole Mag Trihydrate 20 mg PO DAILY 05/06/18 [Nexium] Acetaminophen [Tylenol] 1,000 mg PO Q8 07/03/18 Oxycodone [Oxyir] 5 - 10 mg PO Q4H PRN PRN 07/03/18 Polyethylene Glycol 3350 [Miralax] 17 gm PO DAILY 07/03/18 Surgical History: appendectomy, cholecystectomy, hysterectomy Lives: Spouse/ Significant Other Smoking Status: Never smoker Tobacco Use: Non-smoker Alcohol: Rare Drugs: None - *Family History Maternal History Items: Heart Disease Review of Systems Constitutional: Denies: Anorexia, Chills, Fever Eyes: Denies: Blurred vision, Double vision HEENT: Denies: Head Aches, Sinus Congestion, Sinus Drainage Cardiovascular: Denies: Chest Pain, Palpitations Respiratory: Reports: Shortness of Breath. Denies: Cough, Shortness of breath at rest, Sputum production Gastrointestinal: Denies: Abdominal Pain, Nausea, Vomiting Genitourinary: Denies: Dysuria Musculoskeletal: Denies: Joint Pain, Joint Tenderness Skin: Denies: Rash, Wounds Neurological: Denies: Numbness, Tingling, Focal weakness Psychiatric: Denies: Anxiety, Depression Hematologic/ Lymphatic: Denies: Easy Bruising, Easy Bleeding, Hx of blood clot Comment: A 10 point review of systems were negative except as mentioned in the history of present illness and the other review of systems. Patient Problems: Active and Suspected Problems Acute respiratory distress (Acute) - Physical Exam General: Alert, No apparent distress HEENT: Atraumatic, Normocephalic Oral: Moist Mucosa, No Gingival or Mucosal Lesions/ Ulcerations Neck: No Nodes, Thyroid Normal Size and Texture Lungs: Clear to auscultation, Normal air movement, No rhonchi, No wheeze Cardiovascular: Regular rate, Regular Rhythm, Normal S1, Normal S2, No murmurs Abdomen: Bowel Sounds Present, Soft, Non Tender, Non-Distended, No Hepato- splenomegaly Extremities: No edema, No Calf Tenderness Skin: No rashes, No breakdown Musculoskeletal: No Muscle Wasting Psych/Mental Status: Normal Affect, Appropriate Vital Signs Temp Pulse Resp BP Pulse Ox 36.7 C 66 16 131/63 H 98 07/15/18 13:17 07/15/18 13:17 07/15/18 13:17 07/15/18 13:17 07/15/18 13:17 Oxygen Flow Rate (L/min) 2 Oxygen Delivery Method Room Air Weight: 116.573 kg Body Mass Index (BMI) 42.1 Intake and Output for Last 24 Hours 07/13/18 07/14/18 07/15/18 23:59 23:59 23:59 Intake Total 1999 Balance 1999 Laboratory Tests Past 24 Hrs 07/15/18 07/15/18 07/15/18 05:52 10:25 10:25 D-Dimer Quant (PE/DVT) 1.63 H* Potassium 3.3 L Troponin I < 0.015 Clinical Impression(s) from Imaging Studies Knee X-Ray 07/15/18 09:25 IMPRESSION: Uncomplicated right total knee arthroplasty. Electronically Signed: Kwaku Brush MD at 13:05 EDT Tel , Service support , Chest X-Ray 07/15/18 10:35 IMPRESSION: Normal x-ray examination of the chest. Electronically Signed: Edd Leon DO at 10:53 EDT Tel , Service support , Chest CTA 07/15/18 11:06 IMPRESSION: Normal CTA chest examination, without a demonstrated pulmonary embolism or arterial dissection. Electronically Signed: Edd Leon DO at 12:30 EDT Tel , Service support , Assessment/Plan All Active Problems Acute respiratory distress (Acute) 1. acute respiratory distress: * likely due to medications and probably undiagnosed LATRICIA. * CTA negative * minimize potentiating medications * incentive spirometer * follow up with PCP or pulmonology for polysomnogram 2. HTN: continue home medications. 3. s/p R TKA: per orthopaedics 4. DVT proph: ASA 81 BID. Code Visit Inpatient E&M: 07683 Init Hosp L2
[2018-07-15] MEDS: Senna/Docusate Sodium 1 Tablet 2 TABLET PO ×2 (14:06→21:15)
[2018-07-15] MEDS: Polyethylene Glycol 3350 17 GM PACKET PO (14:06)
[2018-07-15] MEDS: Folic Acid 1 MG Tablet PO (14:07)
[2018-07-15] MEDS: Ferrous Sulfate 325 MG Tablet PO (14:07)
[2018-07-15] MEDS: Glucerna Shake 120 ML LIQUID PO ×2 (14:12→17:14)
[2018-07-15] MEDS: Morphine 2 MG/ML Syringe IV ×2 (14:45→23:36)
[2018-07-15] MEDS: oxyCODONE 5 MG Tablet PO ×2 (15:22→19:42)
[2018-07-15] MEDS: Aspirin 81 MG TAB.CHEW PO (17:13)
[2018-07-15] MEDS: Lisinopril 20 MG Tablet PO (21:13)
[2018-07-15] MEDS: hydroCHLOROthiazide 25 MG Tablet PO (21:13)
--- NOTE | 2018-07-16 00:20 | NURSING ---
continuous SpO2 88% on R/A after morphine, placed on 2l nc
[2018-07-16 02:05] VITALS: BP 140/79; PULSE 68; RESP 18; TEMP 36.7; O2SAT 96
[2018-07-16] MEDS: Morphine 2 MG/ML Syringe IV (04:29)
[2018-07-16 05:53] LABS: Mean Corp Hgb Conc 31.4 g/gl (32-36); Mean Corpuscular Hgb 28.3 pg (27.0-32.0); Mean Platelet Vol. 11.8 fl (6.2-12.0); Platelet Count 257 K/mm3 (150-450); RBC Distribution Width CV 14.2 % (11.6-14.6); RBC Distribution Width SD 45.9 fl (35.1-43.9); Red Blood Count 3.89 M/mm3 (4.2-5.4); Scan Indicated on CBC? Y/N NO; White Blood Count 11.2 K/mm3 (4.4-11.0)
[2018-07-16 06:01] LABS: Anion Gap 7 (5-15); BUN 17 mg/dL (7-18); BUN/Creat Ratio 20.5 RATIO (10-20); Calcium,Total 8.7 mg/dL (8.5-10.1); Chloride 102 mmol/L (98-107); Creatinine, Serum 0.83 mg/dL (0.55-1.02); EST Glomerular Filtration Rate 73 mL/min (>60); Est Glom Filt Rate - Afr Amer 89 mL/min (>60); Estimated Creatinine Clearance 60.81 ml/min; Glucose 130 mg/dL (74-106); Sodium Level 136 mmol/L (136-145)
[2018-07-16] MEDS: Acetaminophen 500 MG Tablet 1000 MG PO ×3 (06:15→21:41)
[2018-07-16] MEDS: oxyCODONE 5 MG Tablet PO ×4 (06:15→19:59)
--- NOTE | 2018-07-16 08:55 | PCM.PN.ORT ---
Patient Problems: Active and Suspected Problems Acute respiratory distress (Acute) Subjective: The patient was sitting in bedside chair upon examination. Patient denies any chest pain, shortness of breath, dizziness, lightheadedness, nausea or vomiting, or calf pain. Patient is currently complaining of significant pain in her postoperative right knee. She has had IV morphine and oxycodone and states it is not controlling her pain. However patient's appearance does not correlate with her pain levels. Patient is sitting very comfortable in the chair in no acute distress. Postoperatively patient did have some respiratory distress with hypoxia. CTA was performed which was negative. Per nursing this morning patient was on room air at 94%. Patient states she has never been evaluated for obstructive sleep apnea. Primary medicine does recommend follow-up with PCP or golf course superintendent for testing. Objective: Vital signs stable and afebrile. Per nursing patient is at room air 94%. Patient is able to plantarflex and dorsiflex actively. Sensation is intact to light touch to saphenous, sural, superficial and deep peroneal, and tibial distribution. Dressing is with minimal drainage over the middle one third otherwise clean dry and intact Negative Homans bilaterally, negative signs and symptoms of DVT. - Physical Exam General: Alert, Oriented x3, Cooperative, No apparent distress Vital Signs Temp Pulse Resp BP Pulse Ox 98.1 F 68 18 140/79 H 96 07/16/18 02:05 07/16/18 02:05 07/16/18 02:05 07/16/18 02:05 07/16/18 02:05 Oxygen Flow Rate (L/min) 2 Oxygen Delivery Method Nasal Cannula Weight: 116.573 kg Body Mass Index (BMI) 42.1 Intake and Output for Last 24 Hours 07/14/18 07/15/18 07/16/18 23:59 23:59 23:59 Intake Total 2761 / 2761 1510 / 1510 Output Total 500 / 500 300 / 300 Balance 2261 / 2261 1210 / 1210 Laboratory Tests Past 24 Hrs 07/15/18 07/15/18 07/16/18 10:25 10:25 05:06 WBC 11.2 H RBC 3.89 L Hgb 11.0 L Hct 35.0 L MCV 90.0 MCH 28.3 MCHC 31.4 L RDW 14.2 RDW Differential 45.9 H Plt Count 257 MPV 11.8 D-Dimer Quant (PE/DVT) 1.63 H* Sodium Potassium Chloride Carbon Dioxide Anion Gap BUN Creatinine Estim Creat Clear Calc Est GFR (MDRD) Af Amer Est GFR (MDRD) Non-Af BUN/Creatinine Ratio Glucose Calcium Troponin I < 0.015 07/16/ 05:06 WBC RBC Hgb Hct MCV MCH MCHC RDW RDW Differential Plt Count MPV D-Dimer Quant (PE/DVT) Sodium 136 Potassium 4.0 Chloride 102 Carbon Dioxide 27.0 Anion Gap 7 BUN 17 Creatinine 0.83 Estim Creat Clear Calc 60.81 Est GFR (MDRD) Af Amer 89 Est GFR (MDRD) Non-Af 73 BUN/Creatinine Ratio 20.5 H Glucose 130 H Calcium 8.7 Troponin I Medical Necessity - Tobacco Use Smoking Status: Never smoker Tobacco Use: Non-smoker Assessment/Plan All Active Problems Acute respiratory distress (Acute) 1. S/P right total knee arthroplasty POD #1 2. Continue Pain Medications: Tylenol and OxyIR. We will have nursing use IV Toradol to see if this helps with pain. Concerned adding MS Contin due to potential side effects today. 3. DVT Prophylaxis: Aspirin 81 mg twice daily for 4 weeks postoperatively 4. PT/OT: Weightbearing as tolerated 5. H & H: 11.0/35.0, asymptomatic 6. Reactive leukocytosis: Currently 11.2, afebrile. Patient did receive Decadron intraoperatively 7. Encouraged Incentive Spirometry 8. Disposition: Patient is continuing to have pain in the right knee requiring IV medications. We will add in IV Toradol to see if this helps manage her pain. Concerned about adding any further narcotics due to potential side effects. Plan will be for possible discharge home tomorrow if pain is better controlled..
--- NOTE | 2018-07-16 08:59 | PN.ORTHO_ITS ---
Patient Problems: Active and Suspected Problems Acute respiratory distress (Acute) Subjective: The patient was sitting in bedside chair upon examination. Patient denies any chest pain, shortness of breath, dizziness, lightheadedness, nausea or vomiting, or calf pain. Patient is currently complaining of significant pain in her p ostoperative right knee. She has had IV morphine and oxycodone and states it is not controlling her pain. However patient's appearance does not correlate with her pain levels. Patient is sitting very comfortable in the chair in no acute distress. Postoperatively patient did have some respiratory distress with hypoxia. CTA was performed which was negative. Per nursing this morning patient was on room air at 94%. Patient states she has never been evaluated for obstructive sleep apnea. Primary medicine does recommend follow-up with PCP or nurse private duty for testing. Objective: Vital signs stable and afebrile. Per nursing patient is at room air 94%. Patient is able to plantarflex and dorsiflex actively. Sensation is intact to light touch to saphenous, sural, superficial and deep peroneal, and tibial distribution. Dressing is with minimal drainage over the middle one third otherwise clean dry and intact Negative Homans bilaterally, negative signs and symptoms of DVT. - Physical Exam General: Alert, Oriented x3, Cooperative, No apparent distress Vital Signs Temp Pulse Resp BP Pulse Ox 98.1 F 68 18 140/79 H 96 07/16/18 02:05 07/16/18 02:05 07/16/18 02:05 07/16/18 02:05 07/16/18 02:05 Oxygen Flow Rate (L/min) 2 Oxygen Delivery Method Nasal Cannula Weight: 116.573 kg Body Mass Index (BMI) 42.1 Intake and Output for Last 24 Hours 07/14/18 07/15/18 07/16/18 23:59 23:59 23:59 Intake Total 2761 / 2761 1510 / 1510 Output Total 500 / 500 300 / 300 Balance 2261 / 2261 1210 / 1210 Laboratory Tests Past 24 Hrs 07/15/18 07/15/18 07/16/18 10:25 10:25 05:06 WBC 11.2 H RBC 3.89 L Hgb 11.0 L Hct 35.0 L MCV 90.0 MCH 28.3 MCHC 31.4 L RDW 14.2 RDW Differential 45.9 H Plt Count 257 MPV 11.8 D-Dimer Quant (PE/DVT) 1.63 H* Sodium Potassium Chloride Carbon Dioxide Anion Gap BUN Creatinine Estim Creat Clear Calc Est GFR (MDRD) Af Amer Est GFR (MDRD) Non-Af BUN/Creatinine Ratio Glucose Calcium Troponin I < 0.015 07/16/18 05:06 WBC RBC Hgb Hct MCV MCH MCHC RDW RDW Differential Plt Count MPV D-Dimer Quant (PE/DVT) Sodium 136 Potassium 4.0 Chloride 102 Carbon Dioxide 27.0 Anion Gap 7 BUN 17 Creatinine 0.83 Estim Creat Clear Calc 60.81 Est GFR (MDRD) Af Amer 89 Est GFR (MDRD) Non-Af 73 BUN/Creatinine Ratio 20.5 H Glucose 130 H Calcium 8.7 Troponin I Medical Necessity - Tobacco Use Smoking Status: Never smoker Tobacco Use: Non-smoker Assessment/Plan All Active Problems Acute respiratory distress (Acute) 1. S/P right total knee arthroplasty POD #1 2. Continue Pain Medications: Tylenol and OxyIR. We will have nursing use IV Toradol to see if this helps with pain. Concerned adding MS Contin due to potential side effects today. 3. DVT Prophylaxis: Aspirin 81 mg twice daily for 4 weeks postoperatively 4. PT/OT: Weightbearing as tolerated 5. H & H: 11.0/35.0, asymptomatic 6. Reactive leukocytosis: Currently 11.2, afebrile. Patient did receive Decadron intraoperatively 7. Encouraged Incentive Spirometry 8. Disposition: Patient is continuing to have pain in the right knee requiring IV medications. We will add in IV Toradol to see if this helps manage her pain. Concerned about adding any further narcotics due to potential side effects. Plan will be for possible discharge home tomorrow if pain is better controlled..
[2018-07-16 09:27] VITALS: BP 143/73; PULSE 68; RESP 18; TEMP 36.8; O2SAT 98
[2018-07-16] MEDS: Ketorolac 15 MG/ML Vial IV (09:29)
[2018-07-16] MEDS: Aspirin 81 MG TAB.CHEW PO ×2 (09:29→16:02)
[2018-07-16] MEDS: Famotidine 20 MG Tablet PO (09:29)
[2018-07-16] MEDS: Ferrous Sulfate 325 MG Tablet PO ×2 (09:29→16:02)
[2018-07-16] MEDS: Polyethylene Glycol 3350 17 GM PACKET PO (09:30)
[2018-07-16] MEDS: Senna/Docusate Sodium 1 Tablet 2 TABLET PO ×2 (09:30→21:41)
[2018-07-16] MEDS: Folic Acid 1 MG Tablet PO ×2 (09:30→16:02)
[2018-07-16] MEDS: Meloxicam 7.5 MG Tablet PO ×2 (09:30→21:40)
[2018-07-16] MEDS: Pantoprazole Sodium 20 MG Tablet PO (09:30)
[2018-07-16] MEDS: 0.9% NaCl Peripheral Flush Adult/Peds IV (09:31)
[2018-07-16] MEDS: Glucerna Shake 120 ML LIQUID PO ×3 (09:31→16:03)
--- NOTE | 2018-07-16 12:17 | PN_ITS ---
Patient Problems: Active and Suspected Problems Acute respiratory distress (Acute) Subjective: Still with a lot of pain in right knee. Oxygen dropped down when she received IV morphine. Vitals/I&O's: Vital Signs Temp Pulse Resp BP Pulse Ox 36.8 C 68 18 143/73 H 98 07/16/18 09:27 07/16/18 09:27 07/16/18 09:27 07/16/18 09:27 07/16/18 09:27 Oxygen Flow Rate (L/min) 2 Oxygen Delivery Method Room Air Weight: 116.573 kg Body Mass Index (BMI) 42.1 Intake and Output for Last 24 Hours 07/14/18 07/15/18 07/16/18 23:59 23:59 23:59 Intake Total 2761 / 2761 1989 Output Total 500 / 500 300 / 300 Balance 2261 / 2261 1690 / 1690 General: Alert, No apparent distress HEENT: Atraumatic, Normocephalic Oral: Moist Mucosa, No Gingival or Mucosal Lesions/ Ulcerations Neck: No Nodes, Thyroid Normal Size and Texture Lungs: Clear to auscultation, Normal air movement, No rhonchi, No wheeze Cardiovascular: Regular rate, Regular Rhythm, Normal S1, Normal S2, No murmurs Abdomen: Bowel Sounds Present, Soft, Non Tender, Non-Distended, No Hepato- splenomegaly Extremities: No edema, No Calf Tenderness Psych/Mental Status: Normal Affect, Appropriate Laboratory Results 07/16/18 05:06: WBC 11.2 H, RBC 3.89 L, Hgb 11.0 L, Hct 35.0 L, MCV 90.0, MCH 28.3, MCHC 31.4 L, RDW 14.2, RDW Differential 45.9 H, Plt Count 257, MPV 11.8 07/16/18 05:06: Sodium 136, Potassium 4.0, Chloride 102, Carbon Dioxide 27.0, Anion Gap 7, BUN 17, Creatinine 0.83, Estim Creat Clear Calc 60.81, Est GFR (MDRD) Af Amer 89, Est GFR (MDRD) Non-Af 73, BUN/Creatinine Ratio 20.5 H, Glucose 130 H, Calcium 8.7 Current Medications Acetaminophen (Tylenol) 1,000 mg PO Q8 [facility] Last Admin: 07/16/18 06:15 Dose: 1,000 mg Albuterol Sulfate (Ventolin Aerosols) 2.5 mg INHALATION Q4H PRN PRN Reason: SOB &/OR WHEEZING Aspirin ([facility]in, Baby) [facility] Last Admin: 07/16/18 09:29 Dose: 81 mg Famotidine (Pepcid) 20 mg PO DAILY [facility] Last Admin: 07/16/18 09:29 Dose: 20 mg Ferrous Sulfate (Ferrous Sulfate) [facility] Last Admin: 07/16/18 09:29 Dose: 325 mg Folic Acid (Folic Acid) [facility] Last Admin: 07/16/18 09:30 Dose: 1 mg [facility] Last Admin: 07/15/18 21:13 Dose: 25 mg Ketorolac Tromethamine (Toradol) 15 mg IV Q6H PRN PRN PRN Reason: MILD-MOD PAIN (1-5/10) Last Admin: 07/16/18 09:29 Dose: 15 mg [facility]inopril ([facility]est[facility]) [facility] Last Admin: 07/15/18 21:13 Dose: 20 mg Meloxicam (Mobic) 7.5 mg PO BID [facility] Last Admin: 07/16/18 09:30 Dose: 7.5 mg Morphine Sulfate () 2 - 4 mg IV Q2H PRN PRN PRN Reason: SEVERE PAIN (6-10/10) Last Admin: 07/16/18 04:29 Dose: 2 mg Morphine Sulfate () 2 - 4 mg IV Q2H PRN PRN PRN Reason: SEVERE PAIN (6-10/10) Nutritional Formula (Lactose Free) (Glucerna Shake) [facility] Last Admin: 07/16/18 11:30 Dose: 120 ml Ondansetron HCl (Zofran) 4 mg IV Q8H PRN PRN PRN Reason: NAUSEA Oxycodone HCl (Oxyir) 5 - 10 mg PO Q4H PRN PRN PRN Reason: MOD-SEVERE PAIN (4-10/10) Last Admin: 07/16/18 12:09 Dose: 10 mg Pantoprazole Sodium (Protonix) 20 mg PO DAILY [facility] Last Admin: 07/16/18 09:30 Dose: 20 mg Polyethylene Glycol (Miralax) 17 gm PO DAILY [facility] Last Admin: 07/16/18 09:30 Dose: 17 gm Promethazine HCl (Phenergan) 12.5 mg IM Q6H PRN PRN; Protocol PRN Reason: NAUSEA/VOMITING Senna/Docusate Sodium (Senokot-S, Becky-Colace) 2 tablet PO BID [facility] Last Admin: 07/16/18 09:30 Dose: 2 tablet Sodium Chloride () 5 - 15 ml IV UD PRN PRN Reason: SALINE FLUSH Last Admin: 07/16/18 09:31 Dose: 10 ml Medical Necessity - Tobacco Use Smoking Status: Never smoker Tobacco Use: Non-smoker Assessment/Plan All Active Problems Acute respiratory distress (Acute) 1. acute respiratory distress: * likely due to medications and probably undiagnosed LATRICIA. * CTA negative * minimize potentiating medications * incentive spirometer * follow up with PCP or pulmonology for polysomnogram * check ambulatory pulse ox prior to discharge. 2. HTN: continue home medications. 3. s/p R TKA: per orthopaedics 4. DVT proph: ASA 81 BID. Code Visit Inpatient E&M: 52931 Subs Hosp L2
--- NOTE | 2018-07-16 13:00 | CASEMGMT ---
RN JEAN PAUL Face to Face with patient for initial transition planning/care coordination assessment. RN CM introduced self and role at [facility]. Patient sitting in chair, alert and oriented. Patient willing to participate in assessment and is able to answer all questions appropriately. Care providers, pharmacy, and demographics verified. Patient wishes to discharge home and is setup with [facility] for outpatient therapy. Patient states she has no further needs or concerns at this time. CM to follow for discharge planning needs that may arise. PCP: Nidhi Specialists: None Preferred Pharmacy: [facility] Insurance: [employer] [facility] Prescription Benefit: Yes Living Will/HPOA: Yes , Francisco Lepe LNOK: , daughter Living Arrangements: Patient lives with in a 1 story home with 4 steps and railingx2 to enter the home. Patient states she was independent at home. Transportation: Family/utilizing insurance setup for transport DME/HHC: Patient has shower chair, cane, walker, hip kit at home. Disposition Plan: Patient to discharge home with outpatient therapy, family support, and follow-up plans in place. Adriana KIRKPATRICK, RN, CM
--- NOTE | 2018-07-16 13:00 | CASEMGMT ---
RN CM Face to Face with patient for initial transition planning/care coordination assessment. RN CM introduced self and role at [facility]. Patient sitting in chair, alert and oriented. Patient willing to participate in assessment and is able to answer all questions appropriately. Care providers, pharmacy, and demographics verified. Patient wishes to discharge home and is setup with [facility] for outpatient therapy. Patient states she has no further needs or concerns at this time. CM to follow for discharge planning needs that may arise. PCP: Nidhi Specialists: None Preferred Pharmacy: [facility] Insurance: Prescription Benefit: Yes Living Will/HPOA: Yes LNOK: , daughter Living Arrangements: Patient lives with in a 1 story home with 4 steps and railingx2 to enter the home. Patient states she was independent at home. Transportation: Family/utilizing insurance setup for transport DME/HHC: Patient has shower chair, cane, walker, hip kit at home. Disposition Plan: Patient to discharge home with outpatient therapy, family support, and follow-up plans in place. Adriana KIRKPATRICK, RN, CM
[2018-07-16 14:08] VITALS: BP 139/76; PULSE 69; RESP 18; TEMP 36.6; O2SAT 99
[2018-07-16 20:01] VITALS: BP 132/69; PULSE 67; RESP 18; TEMP 37.2; O2SAT 100
[2018-07-16] MEDS: Lisinopril 20 MG Tablet PO (21:40)
[2018-07-16] MEDS: hydroCHLOROthiazide 25 MG Tablet PO (21:41)
[2018-07-17] MEDS: oxyCODONE 5 MG Tablet PO ×3 (00:05→09:41)
[2018-07-17 02:01] VITALS: BP 113/67; PULSE 67; RESP 18; TEMP 37; O2SAT 98
[2018-07-17] MEDS: Acetaminophen 500 MG Tablet 1000 MG PO ×2 (04:50→13:19)
[2018-07-17 06:02] LABS: Hematocrit 28.9 % (37-47); Hemoglobin 9.5 g/dl (12.0-15.0); Mean Corp Hgb Conc 32.9 g/gl (32-36); Mean Corpuscular Hgb 28.5 pg (27.0-32.0); Mean Corpuscular Volume 86.8 fL (81-99); Mean Platelet Vol. 11.5 fl (6.2-12.0); Platelet Count 246 K/mm3 (150-450); RBC Distribution Width CV 14.6 % (11.6-14.6); RBC Distribution Width SD 46.2 fl (35.1-43.9); Red Blood Count 3.33 M/mm3 (4.2-5.4); White Blood Count 9.6 K/mm3 (4.4-11.0)
[2018-07-17 06:11] LABS: Scan Indicated on CBC? Y/N NO
--- NOTE | 2018-07-17 06:51 | PCM.PN.ORT ---
Patient Problems: Active and Suspected Problems Acute respiratory distress (Acute) Subjective: The patient was sitting in bedside chair upon examination. Patient denies any chest pain, shortness of breath, dizziness, lightheadedness, nausea or vomiting, or calf pain. Patient reports her pain is much better than yesterday. She has been tolerating physical therapy. Pain is controlled on medications. No adverse overnight events. Plan is for discharge home with outpatient physical therapy. Objective: Vital signs stable and afebrile. Patient is able to plantarflex and dorsiflex actively. Sensation is intact to light touch to saphenous, sural, superficial and deep peroneal, and tibial distribution. Dressing is stable minimal discharge over the middle one third, remaining dressing intact and dry Negative Homans bilaterally, negative signs and symptoms of DVT. - Physical Exam General: Alert, Oriented x3, Cooperative, No apparent distress Vital Signs Temp Pulse Resp BP Pulse Ox 98.6 F 67 18 113/67 98 07/17/18 02:01 07/17/18 02:01 07/17/18 02:01 07/17/18 02:01 07/17/18 02:01 Oxygen Flow Rate (L/min) 2 Oxygen Delivery Method Room Air Weight: 116.573 kg Body Mass Index (BMI) 42.1 Intake and Output for Last 24 Hours 07/15/18 07/16/18 07/17/18 23:59 23:59 23:59 Intake Total 2761 / 2761 2590 / 2590 450 / 450 Output Total 500 / 500 300 / 300 Balance 2261 / 2261 2290 / 2290 450 / 450 Laboratory Tests Past 24 Hrs 07/17/18 05:06 WBC 9.6 RBC 3.33 L Hgb 9.5 L Hct 28.9 L MCV 86.8 MCH 28.5 MCHC 32.9 RDW 14.6 RDW Differential 46.2 H Plt Count 246 MPV 11.5 Medical Necessity - Tobacco Use Smoking Status: Never smoker Tobacco Use: Non-smoker Assessment/Plan All Active Problems Acute respiratory distress (Acute) 1. S/P right total knee arthroplasty POD #2 2. Continue Pain Medications: Tylenol and OxyIR. We will have nursing use IV Toradol to see if this helps with pain. Concerned adding MS Contin due to potential side effects today. 3. DVT Prophylaxis: Aspirin 81 mg twice daily for 4 weeks postoperatively 4. PT/OT: Weightbearing as tolerated 5. H & H: 9.5/28.9, asymptomatic 6. Reactive leukocytosis: Resolved currently 9.6, afebrile. Patient did receive Decadron intraoperatively 7. Encouraged Incentive Spirometry 8. Disposition: Patient is doing much better today with regards to pain in her right knee. She is sitting comfortably in the chair. I discussed with her that she is going to have underlying pain and will continue with the current pain management regimen. Patient wishes to go home today. I would like her to finish physical therapy with the morning and afternoon session. As long as patient is doing well we will plan for discharge home today. Patient will follow-up per postop instructions. Medications will be E scribed to [facility]. Patient has aspirin and x-ray Tylenol at home.
--- NOTE | 2018-07-17 07:00 | PCM.DC.TKR ---
Discharge Diet: No Restrictions Discharge Activity: May Not Drive May shower in (days): 1 - Turned dressing away from water Ice area for (Minutes): 20 - every hour while awake. Weight Bearing Status: Weight bearing as tolerated Elevate: Operative Extremity Additional Activity Instructions:: Wear elastic stockings for 2 weeks after your surgery. Call your doctor if your incision/area has: Continuous Slow Oozing, Sudden Increased Bleeding, Increased Pain/ Swelling, Increased Redness, Foul Smelling Discharge Call your doctor if you observe: Fever of 101 or Higher, Coldness, Increased Pain, Numbness or Tingling, Change in Color, Calf discomfort, Uncontrolled pain Remove Dressing in (days):: 3 - Okay to remove on July 17, 2018 Additional Instructions: Follow [facility] postop instructions Take ferrous sulfate and folic acid for 2 weeks postoperatively Allergies/Adverse Reactions: Allergies Penicillins Allergy (Verified 07/03/18 11:23) Hives Medications to take at Discharge Lisinopril/Hydrochlorothiazide [Zestoretic 20-25 mg Tablet] 1 each PO QHS 03/27/16 Albuterol IH (ProAir) [Proair Hfa] 1 puff INHALATION Q6H PRN PRN 05/06/18 Esomeprazole Mag Trihydrate [Nexium] 20 mg PO DAILY 05/06/18 Polyethylene Glycol 3350 [Miralax] 17 gm PO DAILY 07/03/18 Acetaminophen [Tylenol] 1,000 mg PO Q8 14 Days #0 07/17/18 Aspirin [Aspirin, Baby] 81 mg PO BIDCM 30 Days tab.chew 07/17/18 Ferrous Sulfate 325 mg PO BIDCM 14 Days tablet 07/17/18 Folic Acid 1 mg PO BIDCM #28 tablet 07/17/18 Meloxicam [Mobic] 7.5 mg PO BID #60 tablet 07/17/18 Oxycodone [Oxyir] 5 - 10 mg PO Q4H PRN PRN 5 Days #60 tablet 07/17/18 Senna/Docusate Sodium [Senokot-S] 2 tablet PO BID tablet 07/17/18 The following prescriptions were given: Oxycodone [Oxyir] 5 - 10 mg PO Q4H PRN PRN 5 Days #60 tablet PRN Reason: Mod-Severe Pain (4-02/04) Folic Acid 1 mg PO BIDCM #28 tablet Meloxicam [Mobic] 7.5 mg PO BID #60 tablet Orders to be completed after discharge: Potassium Time Frame: 07/15/18, Location: Laboratory Primary Care Physician: Eduar Terrell MD [Primary Care Provider] - Test Results: Test results from this visit will be discussed in further detail at your follow-up appointment, if applicable. Please Follow Up With: PCP or Pulmonology When: will need follow up post-op for workup of sleep apnea Please Follow Up With: [facility] When: 07/20/18 @ 10:30 am Please Follow Up With: Chauncey Uribe PA-C When: 07/29/18 @ 8:15 am
[2018-07-17] MEDS: Glucerna Shake 120 ML LIQUID PO ×2 (09:41→11:49)
[2018-07-17] MEDS: Pantoprazole Sodium 20 MG Tablet PO (09:42)
[2018-07-17] MEDS: Famotidine 20 MG Tablet PO (09:42)
[2018-07-17] MEDS: Aspirin 81 MG TAB.CHEW PO (09:42)
[2018-07-17] MEDS: Folic Acid 1 MG Tablet PO (09:42)
[2018-07-17] MEDS: Meloxicam 7.5 MG Tablet PO (09:42)
[2018-07-17] MEDS: Senna/Docusate Sodium 1 Tablet 2 TABLET PO (09:42)
[2018-07-17] MEDS: Ferrous Sulfate 325 MG Tablet PO (09:42)
[2018-07-17] MEDS: Polyethylene Glycol 3350 17 GM PACKET PO (09:42)
[2018-07-17 09:50] VITALS: BP 109/64; PULSE 62; RESP 16; TEMP 36.9; O2SAT 96
--- NOTE | 2018-07-17 11:29 | PCM.PN.HOSP ---
Patient Problems: Active and Suspected Problems Acute respiratory distress (Acute) Subjective: Breathing well. Decreased right knee pain, but still sore. Vitals/I&O's: Vital Signs Temp Pulse Resp BP Pulse Ox 36.9 C 62 16 109/64 96 07/17/18 09:50 07/17/18 09:50 07/17/18 09:50 07/17/18 09:50 07/17/18 09:50 Oxygen Flow Rate (L/min) 2 Oxygen Delivery Method Room Air Weight: 116.573 kg Body Mass Index (BMI) 42.1 Intake and Output for Last 24 Hours 07/15/18 07/16/18 07/17/18 23:59 23:59 23:59 Intake Total 2761 / 2761 2590 / 2590 1050 / 1050 Output Total 500 / 500 300 / 300 Balance 2261 / 2261 2290 / 2290 1050 / 1050 General: Alert, No apparent distress HEENT: Atraumatic, Normocephalic Oral: Moist Mucosa, No Gingival or Mucosal Lesions/ Ulcerations Neck: No Nodes, Thyroid Normal Size and Texture Lungs: Clear to auscultation, Normal air movement, No rhonchi, No wheeze Cardiovascular: Regular rate, Regular Rhythm, Normal S1, Normal S2, No murmurs Abdomen: Bowel Sounds Present, Soft, Non Tender, Obese Laboratory Results 07/17/18 05:06: WBC 9.6, RBC 3.33 L, Hgb 9.5 L, Hct 28.9 L, MCV 86.8, MCH 28.5, MCHC 32.9, RDW 14.6, RDW Differential 46.2 H, Plt Count 246, MPV 11.5 Current Medications Acetaminophen (Tylenol) 1,000 mg PO Q8 [facility] Last Admin: 07/17/18 04:50 Dose: 1,000 mg Albuterol Sulfate (Ventolin Aerosols) 2.5 mg INHALATION Q4H PRN PRN Reason: SOB &/OR WHEEZING Aspir[facility] ([facility], [facility]) [facility] Last Admin: 07/17/18 09:42 Dose: 81 mg Famotidine (Pepcid) 20 mg PO DAILY [facility] Last Admin: 07/17/18 09:42 Dose: 20 mg Ferrous Sulfate (Ferrous Sulfate) [facility] Last Admin: 03/22/19 09:42 Dose: 325 mg Folic Acid (Folic Acid) [facility] Last Admin: 07/17/18 09:42 Dose: 1 mg Hydrochlorothiazide (Hctz) 25 mg PO QHS [facility] Last Admin: 07/16/18 21:41 Dose: 25 mg Ketorolac Tromethamine (Toradol) 15 mg IV Q6H PRN PRN PRN Reason: MILD-MOD PAIN (1-5/10) Last Admin: 07/16/18 09:29 Dose: 15 mg Lisinopril (Zestril) 20 mg PO QHS [facility] Last Admin: 07/16/18 21:40 Dose: 20 mg Meloxicam (Mobic) 7.5 mg PO BID [facility] Last Admin: 07/17/18 09:42 Dose: 7.5 mg Morphine Sulfate () 2 - 4 mg IV Q2H PRN PRN PRN Reason: SEVERE PAIN (6-10/10) Last Admin: 07/16/18 04:29 Dose: 2 mg Morphine Sulfate () 2 - 4 mg IV Q2H PRN PRN PRN Reason: SEVERE PAIN (6-10/10) Nutritional Formula (Lactose Free) (Glucerna Shake) 120 ml PO TIDCM [facility] Last Admin: 07/17/18 09:41 Dose: 120 ml Ondansetron HCl (Zofran) 4 mg IV Q8H PRN PRN PRN Reason: NAUSEA Oxycodone HCl (Oxyir) 5 - 10 mg PO Q4H PRN PRN PRN Reason: MOD-SEVERE PAIN (4-10/10) Last Admin: 07/17/18 09:41 Dose: 10 mg Pantoprazole Sodium (Protonix) 20 mg PO DAILY [facility] Last Admin: 07/17/18 09:42 Dose: 20 mg Polyethylene Glycol (Miralax) 17 gm PO DAILY [facility] Last Admin: 07/17/18 09:42 Dose: 17 gm Promethazine HCl (Phenergan) 12.5 mg IM Q6H PRN PRN; Protocol PRN Reason: NAUSEA/VOMITING Senna/Docusate Sodium (Senokot-S, Becky-Colace) 2 tablet PO BID [facility] Last Admin: 07/17/18 09:42 Dose: 2 tablet Sodium Chloride () 5 - 15 ml IV UD PRN PRN Reason: SALINE FLUSH Last Admin: 07/16/18 09:31 Dose: 10 ml Medical Necessity - Tobacco Use Smoking Status: Never smoker Tobacco Use: Non-smoker Assessment/Plan All Active Problems Acute respiratory distress (Acute) 1. acute respiratory distress: likely due to medications and probably undiagnosed LATRICIA. CTA negative minimize potentiating medications incentive spirometer follow up with PCP or pulmonology for polysomnogram check ambulatory pulse ox prior to discharge. 2. HTN: continue home medications. 3. s/p R TKA: per orthopaedics 4. DVT proph: ASA 81 BID. Medically stable for discharge. Code Visit Inpatient E&M: 45235 Subs Hosp L2
[2018-07-17 13:19] VITALS: BP 125/85; PULSE 72; RESP 18; TEMP 37; O2SAT 98
== END 2018-07-17 13:42 | disposition home or self-care (01) | DRG 470 ==
LOC: ACINP 05:22 → MS3 05:31
PROVIDERS: Anesthesiology; Admitting Provider Specialist; Family Provider Family Medicine; PCP Family Medicine; Referring Provider Specialist; Visit Provider Specialist
PROC: 0SRC0JA Replacement of Right Knee Joint with Synthetic Substitute, Uncemented, Open Approach (ICD-10-PCS; CPT 27447; principal; 2018-07-15 06:45)
DX: M17.11 Unilateral primary osteoarthritis, right knee (principal); Z68.41 Body mass index [BMI] 40.0-44.9, adult; I10 Essential (primary) hypertension; R06.03 Acute respiratory distress; Z96.652 Presence of left artificial knee joint; E78.00 Pure hypercholesterolemia, unspecified; M81.0 Age-related osteoporosis without current pathological fracture; E66.9 Obesity, unspecified; T50.905A Adverse effect of unspecified drugs, medicaments and biological substances, initial encounter; Z87.891 Personal history of nicotine dependence
CPT/HCPCS: 36415; 71045; 71275; 73560; 80048; 84132; 84484; 85025; 85027; 85379; 87081; 93005; 94762; 97110; 97162; 97166; 97530; 97535; 99251; C1776; J7120; Q9967; A4216; G0463; J2405

== ENCOUNTER → 2018-10-22 09:19 | Outpatient (CLI) | payer MEDICARE, SELFPAY ==
[2018-07-15 13:48] VITALS: BMI 42.1
[2018-10-22 10:03] LABS: Hematocrit 39.7 % (37-47); Hemoglobin 12.7 g/dl (12.0-15.0); Mean Corpuscular Hgb 27.7 pg (27.0-32.0); Mean Corpuscular Volume 86.7 fL (81-99); Mean Platelet Vol. 11.6 fl (6.2-12.0); Platelet Count 279 K/mm3 (150-450); RBC Distribution Width CV 14.6 % (11.6-14.6); RBC Distribution Width SD 46.4 fl (35.1-43.9); Red Blood Count 4.58 M/mm3 (4.2-5.4); White Blood Count 6.8 K/mm3 (4.4-11.0)
[2018-10-22 10:35] LABS: Scan Indicated on CBC? Y/N NO
[2018-10-22 10:38] LABS: ALB/GLOB Ratio 1.2 RATIO (0.9-2.4); AST(SGOT) 12 U/L (15-37); Alanine Aminotransfer ALT/SGPT 20 U/L (13-56); Albumin, Serum 3.9 g/dL (3.2-5.0); Alkaline Phosphatase 98 U/L (45-117); Anion Gap 5 (5-15); BUN 26 mg/dL (7-18); BUN/Creat Ratio 29.7 RATIO (10-20); Calcium,Total 9.2 mg/dL (8.5-10.1); Chloride 104 mmol/L (98-107); Cholesterol 226 mg/dL (200); Creatinine, Serum 0.88 mg/dL (0.55-1.02); EST Glomerular Filtration Rate 69 mL/min (>60); Est Glom Filt Rate - Afr Amer 83 mL/min (>60); Ferritin 178 ng/mL (8-252); Globulin 3.2 g/dL (2.2-4.2); Glucose 103 mg/dL (74-106); High Density Lipoprotein 39 mg/dL; Iron 58 ug/dL (50-170); Potassium 3.9 mmol/L (3.5-5.1); Protein, Total 7.1 g/dL (6.4-8.2); Sodium Level 138 mmol/L (136-145); Triglycerides 211 mg/dL; Very Low Density Lipoprotein 42 mg/dL (5-40)
[2018-10-22 10:42] LABS: Vitamin D,25 Hydroxy 22.8 ng/mL (29.95-100.01)
== END ==
PROVIDERS: Family Provider Family Medicine; PCP Family Medicine; Referring Provider Family Medicine; Visit Provider Family Medicine
DX: I10 Essential (primary) hypertension (principal); D64.9 Anemia, unspecified; E55.9 Vitamin D deficiency, unspecified
CPT/HCPCS: 36415; 80053; 80061; 82306; 82728; 83540; 85027

== ENCOUNTER → 2018-11-03 07:14 | Outpatient (CLI) | payer MEDICARE, SELFPAY ==
--- NOTE | 2018-11-03 07:20 | CT_ITS ---
STUDY: CT ABDOMEN WITH CONTRAST REASON FOR EXAM: Female, 68 years old. Left sided ventral hernia. History of hysterectomy and cholecystectomy and appendectomy. RADIATION DOSAGE (If Supplied By Facility): CTDIvol = ( 11.3 ) mGy, DLP = ( 854.19 ) mGycm TECHNIQUE: Transaxial images were obtained post I.V. administration of 100 IV Isovue 300, and without oral contrast. Sagittal and coronal images were reconstructed. Individualized dose optimization techniques were used for this CT. COMPARISON: None. FINDINGS: The visualized lung bases are unremarkable. The visualized portions of the heart are within normal limits. Mild fatty infiltration liver without focal mass. The gallbladder is contracted. Normal spleen. Normal pancreas. Normal bilateral adrenal glands. Normal right kidney. Normal left kidney. Normal visualized ureters. Type I hiatal hernia. The stomach is otherwise unremarkable. Normal visualized small intestine. There is a segment of transverse colon which extends outward through a supraumbilical ventral hernia without evidence of obstruction. There is sigmoid diverticulosis without acute inflammatory change. Otherwise normal visualized colon. There are surgical clips in the region of the appendix consistent with a prior appendectomy. There is diffuse atherosclerotic calcification of the abdominal aorta with elongation and tortuosity, but without a demonstrated aneurysm. Normal inferior vena cava. Normal retroperitoneum. Supraumbilical ventral hernia just to the left of midline. This contains a nonobstructed loop of transverse colon. PICC 3 there is anterolisthesis of L5 on S1 with bilateral pars defects. CT/Abdomen WITH IV Contrast IMPRESSION: 1. Left ventral supraumbilical hernia containing nonobstructed transverse colon. 2. Fatty infiltration of the liver without mass. 3. Sigmoid diverticulosis. 4. Degenerative changes of the lumbar spine. Electronically Signed: Frank Rossi DO at 16:50 EDT Tel [phone], Service support ,
== END ==
PROVIDERS: Family Provider Family Medicine; PCP Family Medicine; Referring Provider Family Medicine; Visit Provider Family Medicine
DX: K43.9 Ventral hernia without obstruction or gangrene (principal)
CPT/HCPCS: 74160; Q9967

== ENCOUNTER → 2018-12-10 14:17 | Outpatient (CLI) | payer MEDICARE, SELFPAY ==
[2018-11-19 16:55] VITALS: BMI 42.1
--- NOTE | 2018-12-10 14:20 | BI_ITS ---
MAMMOGRAPHY - BILATERAL SCREENING REASON FOR EXAM: Female, 68 years old. Routine annual screening examination. PERTINENT HISTORY: Non-contributory. TECHNIQUE: Digital bilateral breast jonathan (3D mammographic acquisition) in the CC and MLO projections. 2-D mediolateral oblique (MLO) and craniocaudad (CC) views of both breasts were obtained. CAD: Full Field Digital Mammography with Computer Added Detection was performed. COMPARISON: Comparison is made with prior study dated July 12, 2016. FINDINGS: Breast Composition: The breasts are heterogeneously dense, which may obscure small masses. There are no dominant masses or suspicious calcifications. Stable bilateral axillary lymph nodes. No other significant abnormalities are identified. There has been no significant change since the prior study. BI/SCREEN MAMM (CAD) W/JONATHAN BILAT IMPRESSION: Stable bilateral screening mammogram. Yearly follow-up mammogram recommended. (A) ASSESSMENT CATEGORY: BIRADS Category 2: Benign. A letter regarding these results will be sent to the patient by the facility within 30 days. Approximately 10% of breast cancers are not detected by mammography. A normal mammogram should not delay biopsy of a clinically suspicious abnormality. [id number] Electronically Signed: Kel Quinn, at 15:21 EDT , Service support ,
--- NOTE | 2018-12-10 14:25 | BD_ITS ---
STUDY: DUAL ENERGY X-RAY ABSORPTIOMETRY / DXA REASON FOR EXAM: Female, 68 years old. Early menopause. Loss of height. TECHNIQUE: Bone Mineral Density (BMD) measurements of lumbar spine and bilateral hips were obtained. COMPARISON: None. FINDINGS: Lumbar Spine (L1-L4): g/cm2 (1.466) / T-score (2.2) / Z-score (3.8) Findings are suggestive of normal bone density with a low fracture risk. Left Femur Total: g/cm2 (1.326) / T-score (2.5) / Z-score (3.8) Left Femoral Neck: g/cm2 (1.233) / T-score (1.4) / Z-score (2.9) Right Femur Total: g/cm2 (1.345) / T-score (2.7) / Z-score (3.9) Right Femoral Neck: g/cm2 (1.097) / T-score (0.4) / Z-score (1.9) BD/Dexa Bone Density Study IMPRESSION: The patient is considered normal as outlined below according to World David Organization (WHO) criteria with a low fracture risk. Reference Information: The T-score is the number of standard deviations above or below the standard which is normal for young adults at their peak bone mineral density. The World Health Organization (WHO) interprets the T-scores as follows: Above -1 Normal bone density Between -1 and -2.5 Osteopenia Equal to / or below -2.5 Osteoporosis As a practical clinical guideline, osteopenia may be graded as follows: Mild -1 through -1.5 Moderate -1.6 through -2.0 Severe -2.1 through -2.4 The Z-score is the number of standard deviations above or below age-matched controls. A Z-score of less than -1.5 would be considered abnormal. References: 1. NIH Osteoporosis and Related Bone Diseases http://www.osteo.org 2. International Society for Clinical Densitometry http://www.iscd.org 3. National Osteoporosis Foundation http://www.nof.org Electronically Signed: Kel Quinn, at 15:20 EDT , Service support ,
== END ==
PROVIDERS: Family Provider Family Medicine; PCP Family Medicine; Referring Provider Family Medicine; Visit Provider Family Medicine
DX: Z78.0 Asymptomatic menopausal state (principal); Z12.31 Encounter for screening mammogram for malignant neoplasm of breast
CPT/HCPCS: 77063; 77067; 77080

== ENCOUNTER → 2019-02-16 08:01 | Outpatient (CLI) | payer MEDICARE, SELFPAY ==
[2018-11-19 16:55] VITALS: BMI 42.1
[2019-02-16 11:08] LABS: Vitamin D,25 Hydroxy 25.5 ng/mL (29.95-100.01)
== END ==
PROVIDERS: Family Provider Family Medicine; PCP Family Medicine; Referring Provider Family Medicine; Visit Provider Family Medicine
DX: E55.9 Vitamin D deficiency, unspecified (principal)
CPT/HCPCS: 36415; 82306

== ENCOUNTER → 2019-11-09 07:12 | Outpatient (CLI) | payer MEDICARE, SELFPAY ==
[2018-11-19 16:55] VITALS: BMI 42.1
[2019-11-09 10:07] LABS: Vitamin D,25 Hydroxy 65.4 ng/mL
[2019-11-09 10:11] LABS: AST(SGOT) 16 U/L (15-37); Alanine Aminotransfer ALT/SGPT 21 U/L (13-56); Albumin, Serum 3.5 g/dL (3.2-5.0); Alkaline Phosphatase 81 U/L (45-117); Anion Gap 6 (5-15); BUN 20 mg/dL (7-18); BUN/Creat Ratio 22.8 RATIO (10-20); Calcium,Total 8.7 mg/dL (8.5-10.1); Chloride 104 mmol/L (98-107); Cholesterol 197 mg/dL (200); Creatinine, Serum 0.88 mg/dL (0.55-1.02); EST Glomerular Filtration Rate 68 mL/min (>60); Est Glom Filt Rate - Afr Amer 83 mL/min (>60); Globulin 3.6 g/dL (2.2-4.2); Glucose 120 mg/dL (74-106); High Density Lipoprotein 33 mg/dL; Potassium 3.6 mmol/L (3.5-5.1); Protein, Total 7.1 g/dL (6.4-8.2); Sodium Level 139 mmol/L (136-145); Thyroid Stim Hormone (TSH) 2.22 uIU/mL (0.358-3.74); Triglycerides 227 mg/dL; Very Low Density Lipoprotein 45 mg/dL (5-40)
== END ==
PROVIDERS: PCP Family Medicine; Referring Provider Family Medicine; Visit Provider Family Medicine
DX: R73.01 Impaired fasting glucose (principal); E55.9 Vitamin D deficiency, unspecified; E78.9 Disorder of lipoprotein metabolism, unspecified; D64.9 Anemia, unspecified
CPT/HCPCS: 36415; 80053; 80061; 82306; 84443

== ENCOUNTER → 2020-11-23 08:11 | Outpatient (CLI) | payer MEDICARE, SELFPAY ==
[2018-11-19 16:55] VITALS: BMI 42.1
[2020-11-23 10:37] LABS: Vitamin D,25 Hydroxy 27.7 ng/mL
[2020-11-23 10:44] LABS: ALB/GLOB Ratio 0.9 RATIO (0.9-2.4); AST(SGOT) 10 U/L (15-37); Alanine Aminotransfer ALT/SGPT 23 U/L (13-56); Albumin, Serum 3.6 g/dL (3.2-5.0); Alkaline Phosphatase 87 U/L (45-117); Anion Gap 6 (5-15); BUN 22 mg/dL (7-18); BUN/Creat Ratio 23.8 RATIO (10-20); Chloride 104 mmol/L (98-107); Cholesterol 192 mg/dL (200); Creatinine, Serum 0.92 mg/dL (0.55-1.02); EST Glomerular Filtration Rate 64 mL/min (>60); Est Glom Filt Rate - Afr Amer 78 mL/min (>60); Glucose 113 mg/dL (74-106); High Density Lipoprotein 37 mg/dL; Potassium 3.7 mmol/L (3.5-5.1); Protein, Total 7.6 g/dL (6.4-8.2); Sodium Level 138 mmol/L (136-145); Thyroid Stim Hormone (TSH) 2.07 uIU/mL (0.358-3.74); Triglycerides 189 mg/dL; Very Low Density Lipoprotein 38 mg/dL (5-40)
== END ==
PROVIDERS: PCP Family Medicine; Referring Provider Family Medicine; Visit Provider Family Medicine
DX: R73.01 Impaired fasting glucose (principal); D64.9 Anemia, unspecified; E55.9 Vitamin D deficiency, unspecified; E66.01 Morbid (severe) obesity due to excess calories
CPT/HCPCS: 36415; 80053; 80061; 82306; 84443

== ENCOUNTER → 2022-02-18 | Outpatient (CLI) | payer MEDICARE, SELFPAY ==
[2022-02-18 10:02] LABS: Hematocrit 37.9 % (37-47); Hemoglobin 12.7 g/dL (12.0-15.0); Mean Corp Hgb Conc 33.5 g/dL (32-36); Mean Corpuscular Volume 89.6 fL (81-99); Mean Platelet Vol. 12.4 fl (6.2-12.0); Platelet Count 301 K/mm3 (150-450); RBC Distribution Width CV 13.8 % (11.6-14.6); RBC Distribution Width SD 43.7 fl (35.1-43.9); Red Blood Count 4.23 M/mm3 (4.2-5.4)
[2022-02-18 10:47] LABS: Vitamin B12 361 pg/mL (211-911); Vitamin D,25 Hydroxy 38.3 ng/mL
[2022-02-18 11:12] LABS: AST(SGOT) 12 U/L (15-37); Alanine Aminotransfer ALT/SGPT 18 U/L (13-56); Albumin, Serum 3.6 g/dL (3.2-5.0); Alkaline Phosphatase 87 U/L (45-117); Anion Gap 8 (5-15); BUN 19 mg/dL (7-18); Calcium,Total 9.3 mg/dL (8.5-10.1); Chloride 103 mmol/L (98-107); Cholesterol 188 mg/dL (200); EST Glomerular Filtration Rate 58 mL/min (>60); Est Glom Filt Rate - Afr Amer 71 mL/min (>60); Globulin 3.7 g/dL (2.2-4.2); Glucose 130 mg/dL (74-106); High Density Lipoprotein 33 mg/dL; Potassium 3.8 mmol/L (3.5-5.1); Protein, Total 7.3 g/dL (6.4-8.2); Sodium Level 138 mmol/L (136-145); Thyroid Stim Hormone (TSH) 3.11 uIU/mL (0.358-3.74); Triglycerides 258 mg/dL; Very Low Density Lipoprotein 52 mg/dL (5-40)
== END | disposition home or self-care (01) ==
PROVIDERS: PCP Family Medicine; Referring Provider Family Medicine; Visit Provider Family Medicine
DX: E11.9 Type 2 diabetes mellitus without complications (principal); I10 Essential (primary) hypertension; E55.9 Vitamin D deficiency, unspecified
CPT/HCPCS: 36415; 80053; 80061; 82306; 82607; 84443; 85027

== ENCOUNTER 2022-07-16 05:50 | Day surgery (SDC) | payer MEDICARE, SELFPAY ==
[2022-07-16] VITALS (7 sets, daily range): BP systolic 95–128; BP diastolic 60–78; PULSE 60–76; RESP 16–20; TEMP 36.1–37.3; O2SAT 92–98; BMI 45.3
--- NOTE | 2022-07-16 07:03 | PCM.HP.BLA ---
History and Physical Date of Admission: 07/16/22 Intake Vital Signs ? 06/04/2308:02 BP 152/82 H Blood Pressure Location Rt brachial Position Sitting Respiration 17 Pulse 58 L Pulse Source Monitor Temp 97.4 F L Temp Source Temporal Pulse Oximetry (%) 95 Oxygen Delivery Method room air Intake Visit Reasons:?SUTURE REMOVAL/DISCUSS SURGERY Chief Complaint: Sebaceous cyst removal F/U, schedule cyst removal in OR Compliance Administrator Required: No Is patient in pain?: No Allergies amlodipine [From [facility]] Allergy (Unknown, Verified 06/04/22 09:06) PT UNSURE OF REACTIONPenicillins Allergy (Verified 06/04/22 09:06) Hives Medications lisinopril 20 mg-hydrochlorothiazide 25 mg tablet 1 ea PO QHS bp 03/27/16 [History Confirmed 06/04/22] albuterol sulfate 90 mcg/actuation aerosol inhaler 1 puff inhalation Q6H PRN PRN Sob &/Or Wheezing 05/06/18 [History Confirmed 06/04/22] esomeprazole magnesium 20 mg capsule,delayed release 20 mg PO DAILY stomach 05/06/18 [History Confirmed 06/04/22] polyethylene glycol 3350 17 gram oral powder packet 17 g PO DAILY STOOL SOFTENER 07/03/18 [History Confirmed 06/04/22] acetaminophen 500 mg capsule 500 mg PO Q6H PRN 05/13/22 [History Confirmed 06/04/22] benzonatate 200 mg capsule 200 mg PO ONCE 05/13/22 [History Confirmed 06/04/22] cholecalciferol (vitamin D3) 125 mcg (5,000 unit) capsule 125 mcg PO DAILY 05/13/22 [History Confirmed 06/04/22] metformin 500 mg tablet,extended release 24 hr 500 mg PO DAILY 05/13/22 [History Confirmed 06/04/22] sumatriptan succinate 100 mg tablet 100 mg PO ONCE 05/13/22 [History Confirmed 06/04/22] PFSH Medical History? Acute respiratory distress Diverticulitis of sigmoid colon HTN (hypertension) Incisional hernia, incarcerated Infected sebaceous cyst of skin Surgical History? Previous section S/P appendectomy S/P hysterectomy S/P laparoscopic cholecystectomy Status post bilateral knee replacements Family History? Mother Heart disease Social History? Smoking Status:? Never smoker alcohol intake:? never substance use type:? does not use HPI HPI HPI: Patient is here following office excision of 2 sebaceous cyst.? She is still having drainage from both incisions. ROS General General: No weight change, appetite, fatigue, colon cancer, breast cancer or weakness HEENT HEENT: No difficulty swallowing, eye injury, eye surgery, swollen glands or hoarseness Endo Endocrine: No thyroid disease, diabetes mellitus, thyroid cancer, Hair loss, heat intolerance or cold intolerance Skin Skin: No rash or changing moles Breast Breast: No left breast lump, right breast lump, nipple discharge, breast pain, abnormal mammogram, abnormal US or breast enlargement Musc Musculoskeletal: No back problems, arthritis, rheumatoid arthritis, gout or joint pain Cardio Cardiovascular: Yes high blood pressure; No murmur, pacemaker, heart disease, atrial fibrillation, heart attack, heart stent, palpitations, shortness of breat with exertion or chest pain Psych Psychiatric: No depression, anxiety or hearing voices Resp Respiratory: No shortness of breath, No sleep apnea, No cough, No COPD, No asthma, No emphysema and No wheezing Gastro Gastrointestinal: No abdominal pain, No nausea or vomiting, No diarrhea, Yes constipation, Yes blood in stool, No acid reflux, Yes hemorrhoids, No ulcers, No gallbladder problem and No black,tarry stools Mian Hematologic: No blood thinners, No blood disorders, No bleeding, No anemia and No blood clots Neuro Neurologic: No system reviewed and no additional complaints, except as documented, No as per HPI, No abnormal gait, No abnormal hearing, No abnormal movements, No abnormal speech, No behavioral changes, No burning sensations, No confusion, No convulsions, No disequilibrium, No dizziness, No localized weakness, No frequent falls, No headache(s), No lack of coordination, No loss of vision, No memory loss, No numbness, No other visual disturbances, No radicular pain, No restless legs, No sensory deficit, No syncope, No tingling, No tremor(s), No weakness and No other Exam Const General: cooperative Orientation: alert and oriented x3 HENMT Head: normal to inspection Neck Neck: normal visual inspection and full ROM Chest Chest palpation & inspection: normal inspection of the chest Resp Effort & Inspection: normal respiratory effort Auscultation: clear to auscultation bilaterally Cardio Rate: regular rate Rhythm: regular rhythm GI Inspection: non-distended Palpation: soft and nontender Skin Other: 2 sebaceous cyst excisions are both having drainage.? There is also another sebaceous cyst between the 2. Neuro General: patient alert and patient oriented x3 Extrem General: full ROM Psych Appearance: grossly normal Mental Status: mental status grossly normal Assessment and Plan Assessment and Plan (1) Infected sebaceous cyst of skin: ?Status:?Acute ?Plan: The patient has some hematoma drainage from her upper incision.? She is still having purulent drainage from the lower incision and she does have another sebaceous cyst between the 2 lesions.? At this point I would recommend going to the operating room and cleaning all 3 of these areas out under MAC anesthesia.? I will excise a cyst that has not been addressed yet and reexcise both of the prior cysts better under anesthesia. Femi Tai MD Pager: [facility] [address] [place] [address], [address] [place] [address] Office: I have seen and examined the patient and H&P has been reviewed. There are no changes since prior visit.
--- NOTE | 2022-07-16 07:07 | EKG12_ITS ---
Test Reason : PRE OP Blood Pressure : / mmHG Vent. Rate : 052 BPM Atrial Rate : 052 BPM P-R Int : 280 ms QRS Dur : 092 ms QT Int : 438 ms P-R-T Axes : -04 -09 036 degrees QTc Int : 407 ms Sinus bradycardia with 1st degree A-V block with Premature atrial complexes Low voltage QRS Borderline ECG Confirmed by JUAN PRIEST, LIO ([id number]), assistant film editor CATE MITTAL ([id number]) on 07/18/2022 8:53:10 AM Referred By: Femi Tai Confirmed By:LIO MARTINEZ MD
[2022-07-16 07:20] LABS: Bedside Glucose 153 mg/dL (74-106)
--- NOTE | 2022-07-16 07:30 | CYST_PTH ---
PATIENT: AMPARO RAM LOC: [facility] [place] U#:[id number] AGE/SX: 71/F ROOM: RE07/16/[address]: Dr. Femi Tia MD : 1950 BED: DIS: 07/16/2022 SPEC #: [id number] RECD: 07/16/22 11:59 STATUS: TIERA RELaura #: [id number] EVELINA: 07/16/22 07:[address]: Femi Tai DEPT: SURGICAL PATHOLOGY RECD BY: Jaycee Chambers ENTERED: 07/16/22 12:10 SP TYPE: Cyst OTHR DR: Dr. Joe Terrell MD Tissues: CYST Procedures: Surgery Specimen Level III HEADER OPERATION: Excision sebaceous cyst PRE-OP DIAGNOSIS: Infected sebaceous cyst of skin TISSUE SUBMITTED: Sebaceous cysts of back MICROSCOPIC DIAGNOSIS Cyst of back, excision: Epidermal inclusion cyst. AM:benita 07/17/2022 MICROSCOPIC DESCRIPTION Slides are reviewed. GROSS DESCRIPTION Received in fixative is one container labeled with the patient's name and designated sebaceous cyst of back. The specimen consists of multiple pieces of vital-yellow soft tissue that in aggregate measure 2.5 x 3.0 x 0.8 cm. The pieces appear to consist of portion of cyst wall. The largest piece is serially sectioned. The entire specimen is submitted in two cassettes. / SJ:rg 07/16/2022 TC:5 [facility]: [id number]
[2022-07-16] MEDS: Clindamycin 900 MG/50 ML BAG 75 MG IV (07:40)
[2022-07-16] MEDS: Lidocaine 1% /Epi 1:100 (20ml) 20 ML Vial (07:40)
--- NOTE | 2022-07-16 08:41 | PCM.OPRPT ---
Report of Operation Date of Procedure: 07/16/22 Pre-Operative Diagnosis: 3 sebaceous cyst of the back with history of infection Post-Operative Diagnosis: Same Specimen's removed: 3 sebaceous cysts of the back Description of Procedure: Patient was brought back to the operating room placed in prone position and MAC anesthesia was induced. The back was prepped and draped in usual sterile fashion. The sebaceous cyst were injected with local anesthetic and then they were all incised with a scalpel. The cyst cavities and the surrounding inflamed tissue were removed of each. The largest was approximately 2 cm, the next cyst was 1.8 cm in the next this was 1.5 cm. All of the cavities were irrigated and suctioned dry and hemostasis obtained using electrocautery. The incisions were each closed with interrupted 3-0 nylon sutures. Bandages were applied and the patient was taken to PACU in stable condition. Admit VTE Documentation VTE Mechan Device Prophylaxis: SCD's
--- NOTE | 2022-07-16 08:43 | DCINST_ITS ---
Discharge Instructions Procedure General Surgery Diet Discharge Diet: Light diet - advance as tolerated Activity Discharge Activity: May Not Drive (No driving for 1 week or while taking narcotic pain meds.) and May Shower (tomorrow) May shower in (days): 1 Lifting Restrictions: 10 pounds Dressing / Incision Call your doctor if your incision/area has: Continuous Slow Oozing, Sudden Increased Bleeding, Increased Pain/ Swelling, Increased Redness, Foul Smelling Discharge and Swelling at the incision site Call your doctor if you observe: Fever of 101 or Higher Suture Line Care: Avoid Pulling/Pushing and Avoid Pinching/Bending Remove Dressing in: 1 day Follow Up Care Please Follow Up With: Femi Tai MD When: Please call to schedule 10 day follow up appointment. [phone] Test Results: Test results from this visit will be discussed in further detail at your follow- up appointment, if applicable. Discharge Plan Admission Attending Provider: Femi Tai Primary Care Provider: Eduar Terrell Discharge Orders/Prescriptions Prescriptions: New oxycodone 5 mg tablet 5 - 10 mg PO Q6H PRN (Reason: pain) 5 Days Qty: 20 0RF No Action acetaminophen 500 mg capsule 500 mg PO Q6H PRN (Reason: Pain) cholecalciferol (vitamin D3) 125 mcg (5,000 unit) capsule 125 mcg PO DAILY sumatriptan succinate 100 mg tablet 100 mg PO PRN PRN (Reason: MIGRAINES) metformin 500 mg tablet extended release 24 hr 500 mg PO DAILY lisinopril-hydrochlorothiazide 1 EACH tablet 1 ea PO QHS albuterol sulfate 1 PUFF inhaler 1 puff inhalation Q6H PRN PRN (Reason: Sob &/Or Wheezing) esomeprazole magnesium 20 MG capsule 20 mg PO PRN PRN (Reason: Indigestion) polyethylene glycol 3350 17 GM packet 17 g PO DAILY Referrals / Follow Up: Eduar Terrell MD [Primary Care Provider] - Disposition Disposition (needs filled in before D/C Order can be placed): Home, Self Care
== END 2022-07-16 09:38 | disposition home or self-care (01) ==
LOC: SDC 05:50 → AC 05:51
PROVIDERS: PCP Family Medicine; Referring Provider Surgery; Visit Provider Surgery
PROC: (CPT 11406; principal; 2022-07-16 07:20)
DX: L72.3 Sebaceous cyst (principal); E11.9 Type 2 diabetes mellitus without complications; I10 Essential (primary) hypertension; R52 Pain, unspecified; Z79.84 Long term (current) use of oral hypoglycemic drugs; Z79.891 Long term (current) use of opiate analgesic; Z79.899 Other long term (current) drug therapy; Z87.891 Personal history of nicotine dependence
CPT/HCPCS: 11406; 00300; 82962; 88304; 93005; J7120; J2405

== ENCOUNTER → 2023-01-13 | Outpatient (CLI) | payer MEDICARE, SELFPAY ==
--- NOTE | 2023-01-13 09:22 | RAD_ITS ---
STUDY: X-RAY CHEST REASON FOR EXAM: Female, 72 years old. Cough TECHNIQUE: PA and lateral views of the chest. COMPARISON: July 15, 2018 chest x-ray FINDINGS: The lungs are clear and expanded. There is no demonstrated pleural abnormality. Normal size heart. Normal mediastinum and blane. Normal visualized pulmonary arteries. There is atherosclerotic calcification of the aortic arch with tortuosity. There are diffuse degenerative changes of the visualized thoracic spine. Normal visualized ribs, clavicles, and shoulders. There is no demonstrated abnormality of the visualized soft tissue structures of the upper abdomen. RAD/Chest PA and Lateral IMPRESSION: No demonstrated acute cardiopulmonary process. Electronically Signed: Marianne Olsen MD at 3:25 EDT ,
== END | disposition home or self-care (01) ==
PROVIDERS: PCP Family Medicine; Referring Provider Family Medicine; Visit Provider Family Medicine
DX: J40 Bronchitis, not specified as acute or chronic (principal)
CPT/HCPCS: 71046

== ENCOUNTER → 2023-02-19 | Outpatient (CLI) | payer MEDICARE, SELFPAY ==
[2023-02-19 10:51] LABS: Vitamin B12 392 pg/mL (211-911); Vitamin D,25 Hydroxy 67.6 ng/mL
[2023-02-19 10:53] LABS: AST(SGOT) 12 U/L (15-37); Alanine Aminotransfer ALT/SGPT 26 U/L (13-56); Albumin, Serum 3.5 g/dL (3.2-5.0); Alkaline Phosphatase 77 U/L (45-117); Anion Gap 7 (5-15); BUN 20 mg/dL (7-18); BUN/Creat Ratio 18.5 RATIO (10-20); Chloride 103 mmol/L (98-107); Cholesterol 203 mg/dL (200); Creatinine, Serum 1.08 mg/dL (0.55-1.02); EST Glomerular Filtration Rate 53 mL/min (>60); Est Glom Filt Rate - Afr Amer 64 mL/min (>60); Globulin 3.5 g/dL (2.2-4.2); Glucose 180 mg/dL (74-106); High Density Lipoprotein 32 mg/dL; Potassium 3.5 mmol/L (3.5-5.1); Sodium Level 140 mmol/L (136-145); Thyroid Stim Hormone (TSH) 2.61 uIU/mL (0.358-3.74); Triglycerides 363 mg/dL; Very Low Density Lipoprotein 73 mg/dL (5-40)
== END | disposition home or self-care (01) ==
PROVIDERS: PCP Family Medicine; Referring Provider Family Medicine; Visit Provider Family Medicine
DX: E11.40 Type 2 diabetes mellitus with diabetic neuropathy, unspecified (principal); E55.9 Vitamin D deficiency, unspecified
CPT/HCPCS: 36415; 80053; 80061; 82306; 82607; 84443

== ENCOUNTER → 2023-04-03 | Outpatient (CLI) | payer MEDICARE, SELFPAY ==
--- NOTE | 2023-04-03 09:20 | BI_ITS ---
MAMMOGRAPHY - BILATERAL SCREENING REASON FOR EXAM: Female, 72 years old. Routine annual screening examination. PERTINENT HISTORY: Non-contributory. TECHNIQUE: Digital bilateral breast jonathan (3D mammographic acquisition) in the CC and MLO projections. 2-D mediolateral oblique (MLO) and craniocaudad (CC) views of both breasts were obtained. CAD: Full Field Digital Mammography with Computer Added Detection was performed. COMPARISON: Comparison is made with prior study dated December 10, 2018. FINDINGS: Breast Composition: The breasts are heterogeneously dense, which may obscure small masses. There are no dominant masses or suspicious calcifications. Stable small benign-appearing bilateral axillary lymph nodes. No other significant abnormalities are identified. There has been no significant change since the prior study. BI/SCRN MAMM (CAD)W/JONATHAN BILAT IMPRESSION: Stable bilateral screening mammogram. Yearly follow-up mammogram recommended. (A) ASSESSMENT CATEGORY: BIRADS Category 2: Benign. A letter regarding these results will be sent to the patient by the facility within 30 days. Approximately 10% of breast cancers are not detected by mammography. A normal mammogram should not delay biopsy of a clinically suspicious abnormality. [id number] Electronically Signed: Kel Quinn MD at 10:35 EST ,
--- NOTE | 2023-04-03 09:24 | BD_ITS ---
STUDY: DUAL ENERGY X-RAY ABSORPTIOMETRY / DXA REASON FOR EXAM: Female, 72 years old. [id number] TECHNIQUE: Bone Mineral Density (BMD) measurements of lumbar spine and bilateral hips were obtained. COMPARISON: Comparison is made with prior study December 10, 2018. FINDINGS: Lumbar Spine (L1-L4): g/cm2 (1.252) / T-score (1.9) / Z-score (4.0) Findings are suggestive of normal bone density with a low fracture risk. Left Femur Total: g/cm2 (1.362) / T-score (3.4) / Z-score (5.0) Left Femoral Neck: g/cm2 (1.133) / T-score (2.6) / Z-score (4.4) Right Femur Total: g/cm2 (1.271) / T-score (2.7) / Z-score (4.2) Right Femoral Neck: g/cm2 (0.982) / T-score (1.2) / Z-score (3.0) The T-Scores on the most recent prior examination were: Lumbar Spine (L1-L4): There has been worsening of bone density since the previous examination. Left Femur Total: which represents an improvement of 8.9%. Right Femur Total: which represents an improvement of 0.1%. BD/Dexa Bone Density Study IMPRESSION: The patient is considered normal as outlined below according to World David Organization (WHO) criteria with a low fracture risk. There has been improvement of bone density since the previous examination. Reference Information: The T-score is the number of standard deviations above or below the standard which is normal for young adults at their peak bone mineral density. The World Health Organization (WHO) interprets the T-scores as follows: Above -1 Normal bone density Between -1 and -2.5 Osteopenia Equal to / or below -2.5 Osteoporosis As a practical clinical guideline, osteopenia may be graded as follows: Mild -1 through -1.5 Moderate -1.6 through -2.0 Severe -2.1 through -2.4 The Z-score is the number of standard deviations above or below age-matched controls. A Z-score of less than -1.5 would be considered abnormal. References: 1. NIH Osteoporosis and Related Bone Diseases www osteo.org 2. International Society for Clinical Densitometry www iscd.org 3. National Osteoporosis Foundation www nof.org Electronically Signed: Kel Quinn MD at 10:11 EST ,
== END | disposition home or self-care (01) ==
LOC: OPBD 09:19
PROVIDERS: PCP Family Medicine; Referring Provider Family Medicine; Visit Provider Family Medicine
DX: Z13.820 Encounter for screening for osteoporosis (principal); Z78.0 Asymptomatic menopausal state; Z12.31 Encounter for screening mammogram for malignant neoplasm of breast
CPT/HCPCS: 77063; 77067; 77080

== ENCOUNTER → 2023-05-27 | Outpatient (CLI) | payer MEDICARE, SELFPAY ==
--- OUTSIDE RECORDS SUMMARY | 2023-05-27 08:44 | XMS RPT_ITS | CCD ---
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 Name Role Phone Diane Terrell MD Primary Care Provider DIANE TERRELL Primary Care UnavailCATE Zamora Attending Unavailable DIANE TERRELL Referring DIANE Butterfield Primary Care UnavailLAVELL Rubio Referring Unavailable DIANE TERRELL Primary Care Unavailabl johnson SAMUELS, CATE Referring Unavailable CATE SAMUELS Attending Unavailable URI MADDEN Attending Unavailable , CATE Referring Unavailable DIANE TERRELL Primary Care Unavailabl e Allergies Allergy Classification Reported Allergen(s) Allergy Type Date of Onset Reaction(s) Facility (6 sources) Penicillins; Translations: [PENICILLINS] Propensity to adverse reactions 02-03-2006 [facility] Work Phone: Medications Completed/Discontinued Medications Medication Drug Class(es) Dates Sig (Normalized) Sig (Original) hydroCHLOROthiazide 25 mg / lisinopril 20 mg oral tablet (4 sources) Thiazide Diuretic, Angiotensin Converting Enzyme Inhibitor Start: 12-27-2021 take 1 tablet by mouth once daily lisinopril-hydr oCHLOROthiazide (PRINZIDE, ZESTORETIC) 20-25 mg per tablet Take 1 tablet by mouth once daily. 0 12/27/2021 Active Problems Active Problems Problem Classification Problem Date Documented Date Episodic/Chronic Diabetes mellitus without complication (4 sources) Type 2 diabetes mellitus without complication; Translations: [Type 2 diabetes mellitus without complications] Onset: 05-31-2022 Chronic Digestive congenital anomalies (4 sources) Tortuous colon; Translations: [Other specified congenital malformations of intestine] Onset: 06-18-2022 Chronic Disorders of lipid metabolism (4 sources) Mixed hyperlipidemia; Translations: [Mixed hyperlipidemia] Onset: 05-31-2022 Chronic Diverticulosis and diverticulitis (5 sources) Diverticulitis of sigmoid colon; Translations: [Diverticulitis of large intestine without perforation or abscess without bleeding] Onset: 05-31-2022 Chronic Esophageal disorders (4 sources) Gastroesophageal reflux disease; Translations: [Gastro-esophageal reflux disease without esophagitis] Onset: 05-31-2022 Chronic Essential hypertension (4 sources) Essential hypertension; Translations: [Essential (primary) hypertension] Onset: 05-31-2022 Chronic Other nutritional; endocrine; and metabolic disorders (4 sources) Morbid obesity; Translations: [Morbid (severe) obesity due to excess calories] Onset: 05-31-2022 Chronic Other screening for suspected conditions (not mental disorders or infectious disease) (3 sources) Patient encounter status; Translations: [Encounter for screening for malignant neoplasm of colon] Onset: 06-18-2022 Episodic Other skin disorders (4 sources) Infection of sebaceous cyst; Translations: [Sebaceous cyst] Onset: 05-31-2022 Episodic Residual codes; unclassified (4 sources) Obstructive sleep apnea syndrome; Translations: [Obstructive sleep apnea (adult) (pediatric)] Onset: 05-31-2022 Chronic Residual codes; unclassified (1 source) Other specified postprocedural states; Translations: [History of pelvic surgery] Onset: 06-18-2022 Episodic Screening and history of mental health and substance abuse codes (4 sources) Ex-smoker; Translations: [Personal history of nicotine dependence] Onset: 05-31-2022 Episodic Past or Other Problems Problem Classification Problem Date Documented Da te Episodic/Chronic Other non-traumatic joint disorders (4 sources) Pain in lower limb; Translations: [Pain in unspecified knee] Onset: 02-03-2006 02-03-2006 Episodic Results Test Name Value Interpretation Reference Range Facil ity Vital Signs Date Time Vital Sign Value Performing Clinician Beny valadez 06-18-2022 10:05-0500 Body height 167.6 cm Cate Samuels PA-C Work Phone: [facility] 06-18-2022 10:05-0500 Body temperature 97.2 [degF] Cate Samuels PA-C Work Phone: [facility] 06-18-2022 10:05-0500 Body weight 126.1 kg Cate Arvind PA-C Work Phone: [facility] 06-18-2022 10:05-0500 Diastolic blood pressure 88 mm[Hg] Cate [place] PA-C Work Phone: [facility] 06-18-2022 10:05-0500 Heart rate 80 /min Cate Arvind PA-C Work Phone: [facility] 06-18-2022 10:05-0500 SaO2% (BldA) [Mass fraction] 98 % Cate [place] PA-C Work Phone: [facility] 06-18-2022 10:05-0500 Systolic blood pressure 136 mm[Hg] Cate [place] PA-C Work Phone: [facility] 05-31-2022 08:30-0500 Body height 167.6 cm Pacc 1 Work Phone: [facility] 05-31-2022 08:30-0500 Body temperature 98.01 [degF] Pacc 1 Work Phone: [facility] 05-31-2022 08:30-0500 Body weight 124.74 kg Pacc 1 Work Phone: [facility] 05-31-2022 08:30-0500 Diastolic blood pressure 82 mm[Hg] Pacc 1 Work Phone: [facility] 05-31-2022 08:30-0500 Heart rate 54 /min Pacc 1 Work Phone: [facility] 05-31-2022 08:30-0500 Respiratory rate 16 /min Pacc 1 Work Phone: [facility] 05-31-2022 08:30-0500 SaO2% (BldA) [Mass fraction] 99 % Pacc 1 Work Phone: [facility] 05-31-2022 08:30-0500 Systolic blood pressure 128 mm[Hg] Pacc 1 Work Phone: [facility] 03-13-2022 08:29-0500 Body height 167.6 cm Cate Arvind PA-C Work Phone: [facility] 03-13-2022 08:29-0500 Body temperature 97.11 [degF] Cate Arvind PA-C Work Phone: [facility] 03-13-2022 08:29-0500 Body weight 127.01 kg Cate [place] PA-C Work Phone: [facility] 03-13-2022 08:29-0500 Diastolic blood pressure 68 mm[Hg] Cate Arvind PA-C Work Phone: [facility] 03-13-2022 08:29-0500 Heart rate 98 /min Cate Arvind PA-C Work Phone: [facility] 03-13-2022 08:29-0500 SaO2% (BldA) [Mass fraction] 97 % Cate [place] PA-C Work Phone: [facility] 03-13-2022 08:29-0500 Systolic blood pressure 126 mm[Hg] Cate [place] PA-C Work Phone: [facility] Encounters Encounter Date Encounter Type Care Provider Facility Start: 06-24-2022 ambulatory URI MADDEN [facility] Start: 06-18-2022 End: 06-19-2022 ambulatory DIANE TERRELL Facility:[facility] Start: 06-18-2022 End: 06-18-2022 Patient encounter procedure Cate Arvind PA-C Work Phone: General Surgery Procedures Date Procedure Procedure Detail Performing Clinician Start: 05-31-2022 History of operative procedure on knee History of bilateral knee replacement Pacc Carson 1 Work Phone: H/O: surgery History of pelvi c surgery Cate [place] PA-C Work Phone: H/O: surgery History of pelvi c surgery Cate [place] PA-C Work Phone: Plan of Treatment Date Care Activity Detail Author Start: 04-28-2022 ADVANCE DIRECTIVE DISCUSSION ADVANCE DIRECTIVE DISCUSSION [facility] Start: 04-28-2022 DEPRESSION ASSESSMENT DEPRESSION ASS ESSMENT [facility] Start: 04-28-2021 ADVANCE DIRECTIVE DISCUSSION ADVANCE DIRECTIVE DISCUSSION [facility] Start: 04-28-2021 DEPRESSION ASSESSMENT DEPRESSION ASS ESSMENT [facility] Start: 04-21-2021 COVID-19 VACCINE (5 - Booster for Moderna series) COVID-19 VACCINE (5 - Booster for Moderna series) [facility] Start: 2017 BONE DENSITY BONE DENSITY [facility] Start: 2017 PNEUMOCOCCAL: 65+ (1 - PCV) PNEUMOCOCCAL: 65+ (1 - PCV) [facility] Start: 2002 SHINGRIX VACCINE (1 of 2) SHINGRIX V ACCINE (1 of 2) [facility] Start: 1997 COLOGUARD (FIT-DNA) COLOGUARD (FIT-D NA) [facility] Start: 1997 Colonoscopy COLONOSCOPY [facility] Start: 1997 COLORECTAL CANCER SCREENING COLORECTAL CANCER SCREENING [facility] Start: [address] COLONOGRAPHY [facility] Start: 1997 DIABETES SCREEN DIABETES SCREEN [facility] Start: 1997 FECAL OCCULT BLOOD FECAL OCCULT BLOO D [facility] Start: 1997 LIPID SCREEN LIPID SCREEN [facility] Start: 1997 SIGMOIDOSCOPY SIGMOIDOSCOPY [facility] Start: 1992 Mammography MAMMOGRAM [facility] Start: 09-23-1971 Urine microalbumin profile DTAP,TDAP ,TD (1 - Tdap) [facility] Start: 1970 ANNUAL PCP TEAM ENGINEERING ASSOCIATE ALTAGRACIA DISEASE VISIT ANNUAL PCP TEAM CHRONIC DISEASE VISIT [facility] Start: 1970 BP CONTROLLED (<130/80) BP CONTROLLE D (<130/80) [facility] Start: 1970 Hepatitis B surface antibody level LDL CHOLESTEROL [facility] Start: 1970 HEPATITIS C SCREENING HEPATITIS C SC RASHARD [facility] Start: 1962 3 comp foot exam completed DIABETIC FOOT EXAM [facility] Start: 1962 Hepatitis B screening URINE AL BUMIN:CREATININE RATIO [facility] Start: 1962 Hepatitis C antibody , confirmatory test DILATED RETINAL EXAM [facility] Start: 1958 PNEUMOCOCCAL: 65+ (1 - PCV) PNEUMOCOCCAL: 65+ (1 - PCV) [facility] Start: 1957 Hemoglobin A1c/Hemoglobin.total in Blood HBA1C [facility] Payers Date Payer Category Payer Medicare HUMANA MEDICARE HUMANA GOLD PLUS [id number] 2022-Present [phone] [address] [address] [place] [address] HMO [id number] 2022 Private Health Insurance [id number] 2021 Unknown ANTHEM BLUE [facility] S AND BLUE [facility] ANTHEM MEDIBLUE HMO [id number] 2021-Present [phone] [address] [place] [address] HMO [id number] 2021 Unknown [id number] Social History Date Type Detail Facility Start: [facility]13[facility]2022 [facility] End: 04-28-1979 History of tobacco use Current smoker [facility] End: 04-28-1979 History of tobacco use Cigarette Smoker [facility] Start: 03-13-2022 Tobacco use and exposure Smoke less tobacco non-user [facility] Start: 03-20-2022 End: 06-18-2022 Alcohol intake Current drinker of alcohol (finding) [facility] Start: 03-13-2022 Alcohol Comment socially [facility] Start: 1950 Sex Assigned At Not on file [facility] Start: 03-03-2022 End: 03-13-2022 Exposure to SARS-CoV-2 (event) Not sure [facility] Clinical Notes 03-13-2022 to 06-18-2022 Belinda Quintero LPN - 06/18/2022 10:56 AM Andrey Samuels PA-C - 06/18/2022 10:16 AM Nohemy Ramirez - Isabela Woods LPN - 06/12/2022 4:16 PM ESTPatient Instructions Note Date & Type Note Facility 06-18-2022 Note HNO ID: [id number] Author: Cate Samuels PA-C Service: ? Author Type: Physician Hat Brim Curler Type: Progress Notes Filed: 06/18/2022 3:36 PM Note Text: HISTORY AND PHYSICAL Rosa Lepe 1950 REFERRING PHYSICIAN: Cate Samuels PA-C CHIEF COMPLAINT: Consult (colonoscopy/) HPI: The patient is a 71 year old female referred for endoscopy. Patient was previously evaluated in office on 03/13/22. Per my note at that time: The patient is a 71 year old female referred for endoscopy. Rosa notes no colon complaints currently other than some recent constipation. Patient denies any weight changes, blood in stools, black tarry stools or abdominal pain. Denies family history of colon issues. The patient notes no upper GI complaints. Rosa has undergone prior endoscopy. Reports colonoscopy in 2011, as well as a prior colonoscopy in her 30s. Reports difficulty with having scopes completed due to having tortuous colon. Past medical history significant for diabetes mellitus, hypertension, diverticulitis, fibroid tumor. Patient NOTES issues with waking up from anesthesia in the past. Patient presents today to update HANDP for upcoming scheduled colonoscopy. The patient denies any significant change to her overall health since his last visit. Her past medical history, past surgical history, medications and allergies are up to date as of this visit. PAST MEDICAL HISTORY Diagnosis Date Diabetes mellitus (HCC) pre diabetic Diverticulitis Essential hypertension PAST SURGICAL HISTORY Procedure Laterality Date APPENDECTOMY 1980 PAST SURGICAL HISTORY OF 1994 gallbladder removed PAST SURGICAL HISTORY OF Bilateral knee replacements VAGINAL HYSTERECTOMY Current Outpatient Medications Medication Sig metFORMIN ER (GLUCOPHAGE XR) 500 mg 24 hr tablet Take 500 mg by mouth daily with breakfast. lisinopril-hydroCHLOROthiazide (PRINZIDE, ZESTORETIC) 20-25 mg per tablet Take 1 tablet by mouth once daily. polyethylene glycol 3350 (MIRALAX, GLYCOLAX) 17 gram/dose powder Take 17 g by mouth as needed. No current facility-administered medications for this visit. ALLERGIES: Penicillins PERSONAL HISTORY: Social History Tobacco Use Smoking status: Former Types: Cigarettes Quit date: 1979 Years since quittin.1 Smokeless tobacco: Never Vaping Use Vaping Use: Never used Substance Use Topics Alcohol use: Yes Comment: socially Drug use: Never FAMILY HISTORY: FAMILY HISTORY Problem Relation Age of Onset Hypertension Mother Heart disease Mother COPD Mother No Known Problems Father No Known Problems Brother REVIEW OF SYMPTOMS: The review of systems data was entered by the nurse and reviewed by me Nursing Notes: Belinda Quintero LPN 06/18/2022 11:01 AM Signed REVIEW OF SYSTEMS: General: The patient denies fatigue, denies weight loss, denies weight gain, denies feeling hot, and denies feelings of cold. Eyes: The patient denies glaucoma, denies eye injury/surgery, does not wear glasses or contacts. Ear/Nose/Throat: The patient denies allergies, denies hayfever, denies ear infections, and denies bloody noses. Cardiovascular: The patient denies chest pain, denies heart disease, NOTES high blood pressure,denies cardiac stent, denies prior heart attack, denies irregular heart beat, denies high cholesterol, denies poor circulation, denies heart failure, other cardiac issues, denies claudication, denies cold feet, denies peripheral arterial stent. Respiratory: The patient denies tuberculosis, denies pneumonia, denies frequent cough, denies pulmonary embolism, denies shortness of breath, and denies coughing up blood. Gastrointestinal: The patient denies difficulty swallowing, denies acid reflux, denies ulcers, denies vomiting, denies jaundice/hepatitis, denies gallbladder problems, denies black or tarry stools, denies hemorrhoids, denies bleeding from rectum, denies diverticulitis, NOTES constipation, denies diarrhea, denies loss of stool control, and denies hernias. Kidney/Bladder: The patient denies kidney stones, denies urine infections, and denies bloody urine. Skin: The patient denies a history of skin cancer, denies bleeding/changing moles, and denies a history of skin rash. Neurologic: The patient denies a history of epilepsy/convulsions, denies headaches, denies head/spinal injuries, and denies stroke/TIA. Psychiatric: The patient denies psychiatric medications, denies depression, and denies voices, denies substance abuse. Endocrine: The patient denies thyroid disorders, NOTES diabetes, and denies hormonal problems. Hematologic: The patient denies a history of bruising, denies bleeding, and denies anemia, denies blood clots. Infections: The patient denies a history of measles and mumps, denies rheumatic fever, and denies sexually transmitted diseases. Musculoskeletal: The patient denies back pain/injury, denies back problems, denies s (more content not included)... [facility] 06-18-2022 Nurse Note REVIEW OF SYSTEMS: General: The patient denies fatigue, denies weight loss, denies weight gain, denies feeling hot, and denies feelings of cold. Eyes: The patient denies glaucoma, denies eye injury/surgery, does not wear glasses or contacts. Ear/Nose/Throat: The patient denies allergies, denies hayfever, denies ear infections, and denies bloody noses. Cardiovascular: The patient denies chest pain, denies heart disease, NOTES high blood pressure,denies cardiac stent, denies prior heart attack, denies irregular heart beat, denies high cholesterol, denies poor circulation, denies heart failure, other cardiac issues, denies claudication, denies cold feet, denies peripheral arterial stent. Respiratory: The patient denies tuberculosis, denies pneumonia, denies frequent cough, denies pulmonary embolism, denies shortness of breath, and denies coughing up blood. Gastrointestinal: The patient denies difficulty swallowing, denies acid reflux, denies ulcers, denies vomiting, denies jaundice/hepatitis, denies gallbladder problems, denies black or tarry stools, denies hemorrhoids, denies bleeding from rectum, denies diverticulitis, NOTES constipation, denies diarrhea, denies loss of stool control, and denies hernias. Kidney/Bladder: The patient denies kidney stones, denies urine infections, and denies bloody urine. Skin: The patient denies a history of skin cancer, denies bleeding/changing moles, and denies a history of skin rash. Neurologic: The patient denies a history of epilepsy/convulsions, denies headaches, denies head/spinal injuries, and denies stroke/TIA. Psychiatric: The patient denies psychiatric medications, denies depression, and denies voices, denies substance abuse. Endocrine: The patient denies thyroid disorders, NOTES diabetes, and denies hormonal problems. Hematologic: The patient denies a history of bruising, denies bleeding, and denies anemia, denies blood clots. Infections: The patient denies a history of measles and mumps, denies rheumatic fever, and denies sexually transmitted diseases. Musculoskeletal: The patient denies back pain/injury, denies back problems, denies sciatica, denies knee/foot trouble, denies arthritis, or denies gout. When was patient's last Mammogram screening? N/A Last Colonoscopy: N/A Belinda Quintero LPN documented in this encounter [facility] 06-18-2022 History of Presen t illness Narrative HISTORY AND PHYSICAL Rosa Hale Sherley 1950 REFERRING PHYSICIAN: Cate Samuels PA-C CHIEF COMPLAINT: Consult (colonoscopy/) HPI: The patient is a 71 year old female referred for endoscopy. Patient was previously evaluated in office on 03/13/22. Per my note at that time: The patient is a 71 year old female referred for endoscopy. Rosa notes no colon complaints currently other than some recent constipation. Patient denies any weight changes, blood in stools, black tarry stools or abdominal pain. Denies family history of colon issues. The patient notes no upper GI complaints. Rosa has undergone prior endoscopy. Reports colonoscopy in 2011, as well as a prior colonoscopy in her 30s. Reports difficulty with having scopes completed due to having tortuous colon. Past medical history significant for diabetes mellitus, hypertension, diverticulitis, fibroid tumor. Patient NOTES issues with waking up from anesthesia in the past. Patient presents today to update H&P for upcoming scheduled colonoscopy. The patient denies any significant change to her overall health since his last visit. Her past medical history, past surgical history, medications and allergies are up to date as of this visit. PAST MEDICAL HISTORY Diagnosis Date Diabetes mellitus (HCC) pre diabetic Diverticulitis Essential hypertension PAST SURGICAL HISTORY Procedure Laterality Date APPENDECTOMY 1980 PAST SURGICAL HISTORY OF 1994 gallbladder removed PAST SURGICAL HISTORY OF Bilateral knee replacements VAGINAL HYSTERECTOMY Current Outpatient Medications Medication Sig metFORMIN ER (GLUCOPHAGE XR) 500 mg 24 hr tablet Take 500 mg by mouth daily with breakfast. lisinopril-hydroCHLOROthiazide (PRINZIDE, ZESTORETIC) 20-25 mg per tablet Take 1 tablet by mouth once daily. polyethylene glycol 3350 (MIRALAX, GLYCOLAX) 17 gram/dose powder Take 17 g by mouth as needed. No current facility-administered medications for this visit. ALLERGIES: Penicillins PERSONAL HISTORY: Social History Tobacco Use Smoking status: Former Types: Cigarettes Quit date: 1979 Years since quittin.1 Smokeless tobacco: Never Vaping Use Vaping Use: Never used Substance Use Topics Alcohol use: Yes Comment: socially Drug use: Never FAMILY HISTORY: FAMILY HISTORY Problem Relation Age of Onset Hypertension Mother Heart disease Mother COPD Mother No Known Problems Father No Known Problems Brother REVIEW OF SYMPTOMS: The review of systems data was entered by the nurse and reviewed by fl Nursing Notes: Belinda Quintero LPN 06/18/2022 11:01 AM Signed REVIEW OF SYSTEMS: General: The patient denies fatigue, denies weight loss, denies weight gain, denies feeling hot, and denies feelings of cold. Eyes: The patient denies glaucoma, denies eye injury/surgery, does not wear glasses or contacts. Ear/Nose/Throat: The patient denies allergies, denies hayfever, denies ear infections, and denies bloody noses. Cardiovascular: The patient denies chest pain, denies heart disease, NOTES high blood pressure,denies cardiac stent, denies prior heart attack, denies irregular heart beat, denies high cholesterol, denies poor circulation, denies heart failure, other cardiac issues, denies claudication, denies cold feet, denies peripheral arterial stent. Respiratory: The patient denies tuberculosis, denies pneumonia, denies frequent cough, denies pulmonary embolism, denies shortness of breath, and denies coughing up blood. Gastrointestinal: The patient denies difficulty swallowing, denies acid reflux, denies ulcers, denies vomiting, denies jaundice/hepatitis, denies gallbladder problems, denies black or tarry stools, denies hemorrhoids, denies bleeding from rectum, denies diverticulitis, NOTES constipation, denies diarrhea, denies loss of stool control, and denies hernias. Kidney/Bladder: The patient denies kidney stones, denies urine infections, and denies bloody urine. Skin: The patient denies a history of skin cancer, denies bleeding/changing moles, and denies a history of skin rash. Neurologic: The patient denies a history of epilepsy/convulsions, denies headaches, denies head/spinal injuries, and denies stroke/TIA. Psychiatric: The patient denies psychiatric medications, denies depression, and denies voices, denies substance abuse. Endocrine: The patient denies thyroid disorders, NOTES diabetes, and denies hormonal problems. Hematologic: The patient denies a history of bruising, denies bleeding, and denies anemia, denies blood clots. Infections: The patient denies a history of measles and mumps, denies rheumatic fever, and denies sexually transmitted diseases. Musculoskeletal: The patient denies back pain/injury, denies back problems, denies sciatica, denies knee/foot trouble, denies arthritis, or denies gout. When was patient's last Mammogram screening? N/A Last Colonoscopy: N/A Belinda Quintero LPN I have confirmed and edited as necessary, the PFSH and ROS obtained by others. Cate Samuels PA-C PHYSICAL EXAMINATION: General: The patient is 71 year old female, well nourished, well hydrated in no acute distress. The patient is oriented to time, place, and person. VITALS: Blood pressure 136/88, pulse 80, temperature 36.2 C (97.2 F), height 167.6 cm (5' 6 ), weight 126.1 kg (278 lb), SpO2 98 %. Body mass index is 44.87 kg/m . HEENT: Normal cephalic, ataumatic, pupils are equally round, sclera are anicteric, mucous membranes are moist, oropharynx is clear. Neck has no masses, asymmetry or lymphadenopathy. Respiratory: Clear to auscultation and percussion. Normal respiratory excursion and pattern. Cardiac: Examination is regular rate and rhythm. Normal S1/S2 Abdominal exam: Soft, nontender, with no palpable masses. No hepatosplenomegaly. No palpable hernias. Extremities: no clubbing, cyanosis or edema. No adenopathy. LABORATORY VALUES: As Noted RADIOLOGIC STUDIES: As Noted Assessment IMPRESSION: encounter for colonoscopy. History of tortuous colon and anesthesia issues, MAC planned PLAN: I have reviewed my findings with the surgeon. Will plan for lower endoscopy as scheduled. We discussed the risks and benefits of the planned endoscopy. I have informed the patient that complications can occur including failure to complete the endoscopy and perforation. The patient had the opportunity to ask questions concerning the planned endoscopy. My staff has also explained the procedure to the patient in understandable terms and has given the patient printed material concerning the procedure. The patient freely consents to surgery. I plan to use Golytely bowel preparation. Patient has prep. Reviewed instructions for prep and clear liquid diet We will plan for Monitored Anesthetic Care. Patient has already completed PACC visit Diagnoses: (Q43.8) Tortuous colon (primary encounter diagnosis) (Z98.890) History of pelvic surgery (Z12.11) Encounter for screening for malignant neoplasm of colon No charge-update H&P visit Cate Samuels PA-C documented in this encounter [facility] 06-12-2022 Miscellaneous Notes Received A1c results. Copy made for Ana Clay CNP and original sent to [facility] through [employer]. Isabela Woods LPN Received anesthesia records from [facility]. Copy made for Ana Clay CNP and original sent to [facility] through [employer]. Isabela Woods LPN Fax request sent to Dr. Terrell's office for most recent A1c results for upcoming procedure on 06/24/22 Isabela Woods LPN Fax request sent to [facility] medical records for anesthesia records from 2019 for upcoming procedure on 06/24/22 Isabela Woods LPN Attempted to send fax request to Dr. Terrell's office for most recent A1c results but fax is down. Will attempt to fax later. Isabela Woods LPN Attempted to send fax request to [facility] medical records for anesthesia records from 2019 but fax is down. Will attempt to fax later. Isabela Woods LPN documented in this encounter [facility] 05-31-2022 Instructions Ana Clay APRN.REPAIRER SCREEN CRUSHER - 05/31/2022 8:48 AM EST PATIENT PREOPERATIVE INSTRUCTIONS Lavell Gonzalez MD has scheduled you for your procedure at this surgery center: [facility]: [phone] -- [address] [facility] [id number]. Please read below carefully for your personalized instructions. Dietary Restrictions: -Follow bowel prep instructions given by surgeon's office, you can clear liquids until 2 hours prior to arrival to facility Medications: Unless instructed differently below, stay on all of your medications until your surgery. Approved medications to take the morning of surgery with a sip of water: NONE If you start any new medications after today's visit, please contact the surgeon's office. Blood Thinning Medications: - Stop NSAIDS (Ibuprofen, Advil, Aleve, Motrin, Celebrex, Mobic, etc.) 7 days before surgery, as directed by your surgeon. - Stop Aspirin 7 days before surgery, as directed by your surgeon. - Stop Vitamin E, ALL multi-vitamins, herbals and dietary supplements 7 days before surgery. - You may take Tylenol (Acetaminophen) or any of your pain medications that do not contain aspirin or NSAIDS as needed. Important Reminders: - Candy, mints, and tobacco products are NOT permitted the morning of surgery. - Hearing aids, dentures and glasses may be worn the morning of surgery. - NO jewelry, body piercings, makeup, hairpins or contacts are to be worn the day of surgery. If you develop symptoms such as a fever, cold, or flu, or have other changes to your health within TWO DAYS of scheduled surgery or the morning of surgery, please contact the surgery center above. Personal Belongings: -Please have photo ID and insurance cards. -If you do not have a copy of advance directives on file with us, please bring a copy with you on the day of surgery. - Leave ALL valuables and money at home or with family members. For Outpatient Procedures: - YOU MUST HAVE A RESPONSIBLE INSECT CONTROL AIDE TAKE YOU HOME. A MICA BUILDER OR CAUSTIC CRESYLATE SHIFT SUPERINTENDENT CANNOT BE MADE A RESPONSIBLE INSECT CONTROL AIDE. - We recommend that a responsible person stays with you overnight to take care of you. - You cannot stay in a hotel alone after outpatient surgery. You will not be permitted to have your surgery, if you do not have someone to take care of you. Arrival Time for Surgery: - The Surgery Center or hospital where you are having surgery will call the afternoon before surgery (or Friday for Friday surgery) with a scheduled arrival time. - If you have not heard by 4 pm, please contact the surgery center above. Please be aware that emergency situations arise, which may delay or change your surgical time. If this happens, we will notify you as soon as possible and regret any inconvenience. If you already have an Advance Directive, please fax a copy to [phone] or email to for it to be added to your chart. If you do not have an Advance Directive, you can find the appropriate form and more information at [email or web address]. We recommend that you complete the Advance Directive form found on the website and bring it with you the day of your surgery. It can be witnessed and scanned into your chart that day. Ana Clay APRN.CLAUDIA documented in this encounter [facility] 05-31-2022 History and physical note Images from the original note were not included. HISTORY AND PHYSICAL EXAMINATION SERVICE DATE: 05/31/2022 SERVICE TIME: 9:14 AM PRIMARY CARE PHYSICIAN: Diane Terrell MD REASON FOR VISIT: Rosa Lepe is a 71 year old female who is scheduled for colonoscopy at the request of Dr. Lavell Gonzalez for consultation. My final recommendation will be communicated back to the requesting physician by way of shared medical record or letter. Subjective The patient has the following: ACTIVE PROBLEM LIST Pain in Joint, Lower Leg Diverticulitis of Sigmoid Colon Hypertension Infected Sebaceous Cyst Morbid Obesity (Hcc) Mixed Hyperlipidemia Latricia (Obstructive Sleep Apnea) Gerd (Gastroesophageal Reflux Disease) History of Bilateral Knee Replacement Type 2 Diabetes Mellitus Without Complication, Without Long-Term Current Use of Insulin (Hcc) Former Smoker COVID-19 Immunization Status Overdue - COVID-19 VACCINE (5 - Booster for Moderna series) Overdue since 04/21/2021 02/24/2021 Imm Admin: COVID-19 original vaccine, full dose, monovalent (MODERNA) 01/26/2021 Outside Immunization: COVID-19, mRNA, LNP-S, PF, 100 mcg/0.5mL dose or 50 mcg/0.25mL dose 07/20/2020 Imm Admin: COVID-19 original vaccine, full dose, monovalent (MODERNA) Only the first 3 history entries have been loaded, but more history exists. CHIEF COMPLAINT: Pre-op exam HPI: Rosa Lepe is a 71 year old seen for PAC due to scheduled above procedure for colon cancer screening. 03/13/2022, Cate Samuels PA-C HPI: The patient is a 71 year old female referred for endoscopy. Rosa notes no colon complaints currently other than some recent constipation. Patient denies any weight changes, blood in stools, black tarry stools or abdominal pain. Denies family history of colon issues. The patient notes no upper GI complaints. Rosa has undergone prior endoscopy. Reports colonoscopy in 2011, as well as a prior colonoscopy in her 30s. Reports difficulty with having scopes completed due to having tortuous colon. Past medical history significant for diabetes mellitus, hypertension, diverticulitis, fibroid tumor. Patient NOTES issues with waking up from anesthesia in the past. REVIEW OF SYSTEMS: General: No weight loss, malaise or fevers. Neurological: No history of TIA's, stroke, BIOLOGICAL SCIENTIST tumor, impaired sensorium, hemiplegia, paraplegia or quadraplegia. No neurological symptoms or problems. Respiratory: +former smoker 2ppd/10 years, quit Positive for: obstructive sleep apnea and CPAP/BiPAP noncompliant. Negative for: asthma, COPD, pneumonia within 6 weeks, tobacco use and URI < 2 weeks. Cardiovascular: Positive for: hypertension (on rx) Negative for: anticoagulation therapy, arrhythmia, atrial fibrillation, CAD, chest pain, CHF, congenital heart defect, DVT/PE, hyperlipidemia, recent CT, murmur/valvular heart disease, open heart surgery and valve surgery. GI: See HPI. Positive for: GERD (otc rx as needed) Negative for: abdominal pain, dysphagia, hepatitis, irritable bowel syndrome, inflammatory bowel disease, liver disease, nausea, pancreatitis, vomiting and ETOH >2 drinks/day. : No history of dysuria, frequency or incontinence, stones or chronic kidney disease. No difficulty urinating, nocturia > 1 time per night or hematuria. 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 Endocrine: Positive for: diabetes mellitus. Patient's diabetes mellitus is controlled by oral agents. Negative for: hypothyroidism. Hematology: No history of bleeding or clotting disorder. Patient is not taking anti-coagulation or platelet medications. No history of hematological symptoms or problems. Oncology: No history of CA metastasis, chemo within 30 days, or radiotherapy within 90 days. No history of oncological symptoms or problems. Psych: No history of psychiatric symptoms or problems. Musculoskeletal: +hx bilateral TKA Skin: Negative for lesions, rash and itching. PAST MEDICAL HISTORY Diagnosis Date Diabetes mellitus (HCC) pre diabetic Diverticulitis Essential hypertension PAST SURGICAL HISTORY Procedure Laterality Date APPENDECTOMY 1980 PAST SURGICAL HISTORY OF 1994 gallbladder removed PAST SURGICAL HISTORY OF Bilateral knee replacements VAGINAL HYSTERECTOMY FAMILY HISTORY Problem Relation Age of Onset Hypertension Mother Heart disease Mother COPD Mother No Known Problems Father No Known Problems Brother Social History Tobacco Use Smoking status: Former Types: Cigarettes Quit date: 1979 Years since quittin.1 Smokeless tobacco: Never Vaping Use Vaping Use: Never used Substance Use Topics Alcohol use: Yes Comment: socially Drug use: Never Prior to Admission medications as of 05/31/22 0848 Medication Sig Last Dose Taking metFORMIN ER (GLUCOPHAGE XR) 500 mg 24 hr tablet Take 500 mg by mouth daily with breakfast. Taking Yes lisinopril-hydroCHLOROthiazide (PRINZIDE, ZESTORETIC) 20-25 mg per tablet Take 1 tablet by mouth once daily. Taking Yes polyethylene glycol 3350 (MIRALAX, GLYCOLAX) 17 gram/dose powder Take 17 g by mouth as needed. Taking Yes No medication comments found. ALLERGIES Allergen Reactions Penicillins Hives Objective PHYSICAL EXAM: General: alert and oriented (x3), healthy appearance and morbidly obese. Pertinent negatives noted - not distressed. Skin: normal color, no rash or lesions. HEENT: EOM intact and pupils equal round. Pertinent negatives noted - no carotid bruit. Cardiovascular: regular rate and rhythm, normal S1 and S2, no rub, murmurs, or gallop. Respiratory: normal breath sounds, no wheezes or crackles. No chest wall deformity or tenderness. Abdomen: soft. Pertinent negatives noted - not tender. Extremities: no deformity, no edema or tenderness, no joint swelling or clubbing. Neurological: normal cognition and motor skills. Gait normal. No weakness or sensory deficit. PAIN ASSESSMENT: VITALS: BP 128/82 Pulse 54 Temp (Src) 98 (Temporal) Resp 16 Ht 5' 6 (1.68m) Wt 275 lb (124.7kg) SpO2 99% BMI 44.41 kg/(m^2). Diagnostic tests reviewed for today's visit: Lab Value Units Date High Low HB No results within date range. HCT No results within date range. WBC No results within date range. PLT No results within date range. NA No results within date range. K No results within date range. GLUC No results within date range. BUN No results within date range. CREAT No results within date range. PTSEC No results within date range. INR No results within date range. APTT No results within date range. ALT No results within date range. AST No results within date range. TBILI No results within date range. TSH No results within date range. Lab Value Units Date High Low HCGQT No results within date range. UHCG No results within date range. HCG, BODY* No results within date range. Lab Value Units Date High Low ABORHD No results within date range. ABSCREEN No results within date range. No results found for: HBA1C No results found for this or any previous visit (from the past 8760 hour(s)). No results found for this or any previous visit (from the past 04108 hour(s)). Assessment Type 2 diabetes mellitus without complication, without long-term current use of insulin (HCC) Assessment: controlled on oral agent Requested recent A1c from PCP's office LATRICIA (obstructive sleep apnea) Assessment: non-compliant with CPAP Morbid obesity (HCC) Assessment: Body mass index is 44.39 kg/m . Mixed hyperlipidemia Assessment: c/w statin Infected sebaceous cyst Assessment: recent excision x2 on back, healing, done at [facility] Hypertension Assessment: controlled on rx Last 14 BP Last 14 Encounter BP Readings: Date: BP: 05/31/2022 128/82 03/13/2022 126/68 History of bilateral knee replacement Assessment: hx GERD (gastroesophageal reflux disease) Assessment: otc rx as needed Diverticulitis of sigmoid colon Assessment: hx, no surgical intervention Former smoker Assessment: 2ppd/10 years, quit , denies asthma or COPD Carpenter Activity Status Index: METS: Climb a flight of stairs or walk up a hill (5.50 METs) DASI Score: 5.5 Patient denies any chest pain or undue shortness of breath with the above physical activity. Clinical Frailty Scale: 3. Well, with treated comorbid disease STOP-Bang Score: Snores loudly Has been observed to stop breathing or choking/gasping during sleep Has or is being treated for high blood pressure BMI greater than 35 kg/m^2 Patient over 50 years old Has a large neck Denies feeling tired, fatigued, or sleepy during the daytime Non-male patient STOP-Bang Score: 6 [id number] Score: Age: 65-74 Sex: female CHF history: No Hypertension history: Yes Stroke/TIA/thromboembolism history: No Vascular disease history: No Diabetes history: Yes [id number] Score: 4 ARISCAT Score: Age: 51-80 Preoperative SpO2: >=96% Respiratory infection in the last month: No Preoperative anemia: No Surgical incision: peripheral Duration of surgery: <2 hrs Emergency procedure: No ARISCAT Score: 3 ASA Class: 3 ANESTHESIA FINDINGS: Intubation History: No history of difficult intubation Significant Anesthesia Considerations: hx 2019 knee replacement at [facility], records requested potential slow emergence Airway History: No history of difficult airway I - PHYSICAL EVALUATION AIRWAY Patient intubated: No. Tracheostomy tube not present Mallampati: III. TM distance: >3 FB. Neck ROM: full ROM without neurological symptoms. Mouth opening: adequate. Short neck: no. Thick neck: yes Sanchez present: no DENTAL Dental findings: teeth intact. Additional comments: [place]/back. II - ANESTHESIA PLAN ASA Score: 3 Anesthetic Plan: other Anesthetic plan additional comments: *PACC/TCI - anesthesia choice. Beta David Monitoring Plan Post Procedure Analgesic Plan Informed Consent Anesthetic risks, benefits, alternatives, personnel and consent discussed: yes. Patient / Responsible Constitution Party agrees to proceed: yes Patient / Surrogate agrees to blood products: blood products not planned Prepared for Surgery: optimally prepared for surgery. CONSULTS: Patient does not require consults for optimization at this time Planned Anesthetic: other anesthesia choice The Following Tests/Procedures Have Been Initiated: No orders of the defined types were placed in this encounter. Instructions Given to Patient: Instructions located in the after visit summary. Patient given verbal and written preop instructions and voices comprehension and compliance. SIGNATURE: Ana Clay APRN.CNP PATIENT NAME: Rosa Lepe DATE: May 31, 2022 TIME: 8:46 AM PAGER/CONTACT #: documented in this encounter [facility] 03-13-2022 Note HNO ID: [id number] Author: Cate Samuels PA-C Service: ? Author Type: Physician Hat Brim Curler Type: Progress Notes Filed: 03/20/2022 4:12 PM Note Text: HISTORY AND PHYSICAL Rosa Lepe 1950 REFERRING PHYSICIAN: Diane Terrell, * CHIEF COMPLAINT: Consult (colonoscopy) HPI: The patient is a 71 year old female referred for endoscopy. Rosa notes no colon complaints currently other than some recent constipation. Patient denies any weight changes, blood in stools, black tarry stools or abdominal pain. Denies family history of colon issues. The patient notes no upper GI complaints. Rosa has undergone prior endoscopy. Reports colonoscopy in 2011, as well as a prior colonoscopy in her 30s. Reports difficulty with having scopes completed due to having tortuous colon. Past medical history significant for diabetes mellitus, hypertension, diverticulitis, fibroid tumor. Patient NOTES issues with waking up from anesthesia in the past. PAST MEDICAL HISTORY Diagnosis Date Diabetes mellitus (HCC) pre diabetic Diverticulitis Essential hypertension PAST SURGICAL HISTORY Procedure Laterality Date APPENDECTOMY 1980 PAST SURGICAL HISTORY OF 1994 gallbladder removed PAST SURGICAL HISTORY OF Bilateral knee replacements VAGINAL HYSTERECTOMY Current Outpatient Medications Medication Sig metFORMIN ER (GLUCOPHAGE XR) 500 mg 24 hr tablet Take 500 mg by mouth daily with breakfast. lisinopril-hydroCHLOROthiazide (PRINZIDE, ZESTORETIC) 20-25 mg per tablet Take 1 tablet by mouth once daily. polyethylene glycol 3350 (MIRALAX, GLYCOLAX) 17 gram/dose powder Take 17 g by mouth as needed. No current facility-administered medications for this visit. ALLERGIES: Penicillins PERSONAL HISTORY: Social History Tobacco Use Smoking status: Former Types: Cigarettes Quit date: 1979 Years since quittin.9 Smokeless tobacco: Never Vaping Use Vaping Use: Never used Substance Use Topics Alcohol use: Yes Comment: socially Drug use: Never FAMILY HISTORY: FAMILY HISTORY Problem Relation Age of Onset Hypertension Mother Heart disease Mother COPD Mother No Known Problems Father No Known Problems Brother REVIEW OF SYMPTOMS: The review of systems data was entered by the nurse and reviewed by fl Nursing Notes: Miriam CeballosTYSHAWN 03/13/2022 8:33 AM Signed REVIEW OF SYSTEMS: General: The patient denies fatigue, denies weight loss, denies weight gain, denies feeling hot, and denies feelings of cold. Eyes: The patient denies glaucoma, denies eye injury/surgery, does wear glasses or contacts. Ear/Nose/Throat: The patient notes allergies, denies hayfever, denies ear infections, and denies bloody noses. Cardiovascular: The patient denies chest pain, denies heart disease, notes high blood pressure,denies cardiac stent, denies prior heart attack, denies irregular heart beat, denies high cholesterol, denies poor circulation, denies heart failure, other cardiac issues, denies claudication, denies cold feet, denies peripheral arterial stent. Respiratory: The patient denies tuberculosis, denies pneumonia, denies frequent cough, denies pulmonary embolism, denies shortness of breath, and denies coughing up blood. Gastrointestinal: The patient denies difficulty swallowing, denies acid reflux, denies ulcers, denies vomiting, denies jaundice/hepatitis, denies gallbladder problems, denies black or tarry stools, notes hemorrhoids, denies bleeding from rectum, notes diverticulitis, denies constipation, denies diarrhea, denies loss of stool control, and notes hernias. Kidney/Bladder: The patient denies kidney stones, denies urine infections, and denies bloody urine. Skin: The patient denies a history of skin cancer, denies bleeding/changing moles, and denies a history of skin rash. Neurologic: The patient denies a history of epilepsy/convulsions, denies headaches, denies head/spinal injuries, and denies stroke/TIA. Psychiatric: The patient denies psychiatric medications, denies depression, and denies voices, denies substance abuse. Endocrine: The patient denies thyroid disorders, denies diabetes, and denies hormonal problems. Hematologic: The patient denies a history of bruising, denies bleeding, and denies anemia, denies blood clots. Infections: The patient denies a history of measles and mumps, notes rheumatic fever, and denies sexually transmitted diseases. Musculoskeletal: The patient denies back pain/injury, denies back problems, denies sciatica, denies knee/foot trouble, denies arthritis, or denies gout. When was patient's last Mammogram screening? 2019 Last Colonoscopy: 2011 Miriam Ceballos LPN I have confirmed and edited as necessary, the PFSH and ROS obtained by others. Cate Samuels PA-C PHYSICAL EXAMINATION: General: The patient is 71 year old female, well nourished, well hydrated in no acute distress. The patient is oriented to time, xander (more content not included)... [facility] 03-13-2022 History of Presen t illness Narrative HISTORY AND PHYSICAL Rosa Hale Sherley 1950 REFERRING PHYSICIAN: Diane Terrell, * CHIEF COMPLAINT: Consult (colonoscopy) HPI: The patient is a 71 year old female referred for endoscopy. Rosa notes no colon complaints currently other than some recent constipation. Patient denies any weight changes, blood in stools, black tarry stools or abdominal pain. Denies family history of colon issues. The patient notes no upper GI complaints. Rosa has undergone prior endoscopy. Reports colonoscopy in 2011, as well as a prior colonoscopy in her 30s. Reports difficulty with having scopes completed due to having tortuous colon. Past medical history significant for diabetes mellitus, hypertension, diverticulitis, fibroid tumor. Patient NOTES issues with waking up from anesthesia in the past. PAST MEDICAL HISTORY Diagnosis Date Diabetes mellitus (HCC) pre diabetic Diverticulitis Essential hypertension PAST SURGICAL HISTORY Procedure Laterality Date APPENDECTOMY 1980 PAST SURGICAL HISTORY OF 1994 gallbladder removed PAST SURGICAL HISTORY OF Bilateral knee replacements VAGINAL HYSTERECTOMY Current Outpatient Medications Medication Sig metFORMIN ER (GLUCOPHAGE XR) 500 mg 24 hr tablet Take 500 mg by mouth daily with breakfast. lisinopril-hydroCHLOROthiazide (PRINZIDE, ZESTORETIC) 20-25 mg per tablet Take 1 tablet by mouth once daily. polyethylene glycol 3350 (MIRALAX, GLYCOLAX) 17 gram/dose powder Take 17 g by mouth as needed. No current facility-administered medications for this visit. ALLERGIES: Penicillins PERSONAL HISTORY: Social History Tobacco Use Smoking status: Former Types: Cigarettes Quit date: 1979 Years since quittin.9 Smokeless tobacco: Never Vaping Use Vaping Use: Never used Substance Use Topics Alcohol use: Yes Comment: socially Drug use: Never FAMILY HISTORY: FAMILY HISTORY Problem Relation Age of Onset Hypertension Mother Heart disease Mother COPD Mother No Known Problems Father No Known Problems Brother REVIEW OF SYMPTOMS: The review of systems data was entered by the nurse and reviewed by fl Nursing Notes: Miriam CeballosTYSHAWN 03/13/2022 8:33 AM Signed REVIEW OF SYSTEMS: General: The patient denies fatigue, denies weight loss, denies weight gain, denies feeling hot, and denies feelings of cold. Eyes: The patient denies glaucoma, denies eye injury/surgery, does wear glasses or contacts. Ear/Nose/Throat: The patient notes allergies, denies hayfever, denies ear infections, and denies bloody noses. Cardiovascular: The patient denies chest pain, denies heart disease, notes high blood pressure,denies cardiac stent, denies prior heart attack, denies irregular heart beat, denies high cholesterol, denies poor circulation, denies heart failure, other cardiac issues, denies claudication, denies cold feet, denies peripheral arterial stent. Respiratory: The patient denies tuberculosis, denies pneumonia, denies frequent cough, denies pulmonary embolism, denies shortness of breath, and denies coughing up blood. Gastrointestinal: The patient denies difficulty swallowing, denies acid reflux, denies ulcers, denies vomiting, denies jaundice/hepatitis, denies gallbladder problems, denies black or tarry stools, notes hemorrhoids, denies bleeding from rectum, notes diverticulitis, denies constipation, denies diarrhea, denies loss of stool control, and notes hernias. Kidney/Bladder: The patient denies kidney stones, denies urine infections, and denies bloody urine. Skin: The patient denies a history of skin cancer, denies bleeding/changing moles, and denies a history of skin rash. Neurologic: The patient denies a history of epilepsy/convulsions, denies headaches, denies head/spinal injuries, and denies stroke/TIA. Psychiatric: The patient denies psychiatric medications, denies depression, and denies voices, denies substance abuse. Endocrine: The patient denies thyroid disorders, denies diabetes, and denies hormonal problems. Hematologic: The patient denies a history of bruising, denies bleeding, and denies anemia, denies blood clots. Infections: The patient denies a history of measles and mumps, notes rheumatic fever, and denies sexually transmitted diseases. Musculoskeletal: The patient denies back pain/injury, denies back problems, denies sciatica, denies knee/foot trouble, denies arthritis, or denies gout. When was patient's last Mammogram screening? 2019 Last Colonoscopy: 2011 Mirima Ceballos LPN I have confirmed and edited as necessary, the PFSH and ROS obtained by others. Cate Samuels PA-C PHYSICAL EXAMINATION: General: The patient is 71 year old female, well nourished, well hydrated in no acute distress. The patient is oriented to time, place, and person. VITALS: Blood pressure 126/68, pulse 98, temperature 36.2 C (97.1 F), height 167.6 cm (5' 6 ), weight 127 kg (280 lb), SpO2 97 %. Body mass index is 45.19 kg/m . HEENT: Normal cephalic, ataumatic, pupils are equally round, sclera are anicteric, mucous membranes are moist, oropharynx is clear. Neck has no masses, asymmetry or lymphadenopathy. Respiratory: Clear to auscultation and percussion. Normal respiratory excursion and pattern. Cardiac: Examination is regular rate and rhythm. Normal S1/S2 Abdominal exam: Soft, nontender, with no palpable masses. No hepatosplenomegaly. No palpable hernias. Extremities: no clubbing, cyanosis or edema. No adenopathy. LABORATORY VALUES: As Noted RADIOLOGIC STUDIES: As Noted Assessment IMPRESSION: encounter for screening colonoscopy. History of tortuous colon and issues with anesthesia in the past. PLAN: I have reviewed my findings with the surgeon. Will plan for lower endoscopy. We discussed the risks and benefits of the planned endoscopy. I have informed the patient that complications can occur including failure to complete the endoscopy and perforation. The patient had the opportunity to ask questions concerning the planned endoscopy. My staff has also explained the procedure to the patient in understandable terms and has given the patient printed material concerning the procedure. The patient freely consents to surgery. The patient was offered a surgery/procedure at a [facility] facility. I have counseled the patient regarding the risk of exposure to and/or potential harm posed by the COVID-19 virus with having a surgery/procedure at this time versus the risk of delaying the surgery/procedure. It is not possible to know either the risk of delaying the surgery or procedure or chance of getting an infection with perfect accuracy, but a joint decision was made between the patient and myself to proceed at this time with endoscopy. I plan to use Golytely bowel preparation Patient instructed to contact PCP for instructions regarding diabetic medication, which may require adjustment during bowel preparation and/or day of procedure We will plan for Monitored Anesthetic Care. Prior anesthesia issues as well as history of tortuous colon and prior incomplete colonoscopy, history of pelvic surgery Diagnoses: (Z12.11) Encounter for screening for malignant neoplasm of colon (primary encounter diagnosis) (Q43.8) Tortuous colon (Z98.890) History of pelvic surgery Consultation requested by Dr. Terrell for an opinion regarding screening colonoscopy. My final recommendations will be communicated back to the requesting physician by way of shared Medical record or letter to requesting physician via US mail. Cate Samuels PA-C documented in this encounter [facility] 03-13-2022 Nurse Note REVIEW OF SYSTEMS: General: The patient denies fatigue, denies weight loss, denies weight gain, denies feeling hot, and denies feelings of cold. Eyes: The patient denies glaucoma, denies eye injury/surgery, does wear glasses or contacts. Ear/Nose/Throat: The patient notes allergies, denies hayfever, denies ear infections, and denies bloody noses. Cardiovascular: The patient denies chest pain, denies heart disease, notes high blood pressure,denies cardiac stent, denies prior heart attack, denies irregular heart beat, denies high cholesterol, denies poor circulation, denies heart failure, other cardiac issues, denies claudication, denies cold feet, denies peripheral arterial stent. Respiratory: The patient denies tuberculosis, denies pneumonia, denies frequent cough, denies pulmonary embolism, denies shortness of breath, and denies coughing up blood. Gastrointestinal: The patient denies difficulty swallowing, denies acid reflux, denies ulcers, denies vomiting, denies jaundice/hepatitis, denies gallbladder problems, denies black or tarry stools, notes hemorrhoids, denies bleeding from rectum, notes diverticulitis, denies constipation, denies diarrhea, denies loss of stool control, and notes hernias. Kidney/Bladder: The patient denies kidney stones, denies urine infections, and denies bloody urine. Skin: The patient denies a history of skin cancer, denies bleeding/changing moles, and denies a history of skin rash. Neurologic: The patient denies a history of epilepsy/convulsions, denies headaches, denies head/spinal injuries, and denies stroke/TIA. Psychiatric: The patient denies psychiatric medications, denies depression, and denies voices, denies substance abuse. Endocrine: The patient denies thyroid disorders, denies diabetes, and denies hormonal problems. Hematologic: The patient denies a history of bruising, denies bleeding, and denies anemia, denies blood clots. Infections: The patient denies a history of measles and mumps, notes rheumatic fever, and denies sexually transmitted diseases. Musculoskeletal: The patient denies back pain/injury, denies back problems, denies sciatica, denies knee/foot trouble, denies arthritis, or denies gout. When was patient's last Mammogram screening? 2019 Last Colonoscopy: 2011 Miriam Ceballos LPN documented in this encounter [facility] Pre-operative examination- Primary Preoperative examination, unspecified Mixed hyperlipidemia LATRICIA (obstructive sleep apnea) Obstructive sleep apnea (adult) (pediatric) Gastroesophageal reflux disease, unspecified whether esophagitis present History of bilateral knee replacement Type 2 diabetes mellitus without complication, without long-term current use of insulin (HCC) Infected sebaceous cyst Sebaceous cyst Primary hypertension Unspecified essential hypertension Diverticulitis of sigmoid colon Diverticulitis of colon (without mention of hemorrhage) Morbid obesity (HCC) Morbid obesity Former smoker Personal history of tobacco use, presenting hazards to health [facility] Tortuous colon- Primary Volvulus History of pelvic surgery Personal history of surgery to other organs Encounter for screening for malignant neoplasm of colon Special screening for malignant neoplasms, colon documented in this encounter [facility] Summary Purpose Family History No Family History Records FoundNo Family History Records Found Advance Directives No Advanced Directives Records FoundNo Advanced Directives Records Found Additional Source Comments Source Comments (unrecognize d section and content) In the event this informatio n is protected by the Federal Confidentiality of Alcohol and Drug Abuse Patient Records regulations: The Federal rules restrict any use of the information to criminally investigate or prosecute any alcohol or drug abuse patient.[facility] the event this information is protected by the Federal Confidentiality of Alcohol and Drug Abuse Patient Records regulations: The Federal rules restrict any use of the information to criminally investigate or prosecute any alcohol or drug abuse patient.[facility] the event this information is protected by the Federal Confidentiality of Alcohol and Drug Abuse Patient Records regulations: The Federal rules restrict any use of the information to criminally investigate or prosecute any alcohol or drug abuse patient.[facility] the event this information is protected by the Federal Confidentiality of Alcohol and Drug Abuse Patient Records regulations: The Federal rules restrict any use of the information to criminally investigate or prosecute any alcohol or drug abuse patient.[facility] Reason for Visit (unrecogniz ed section and content) Reason Comments Consult Reason Comments Request for outside medical records PCP - A1c results Care Teams (unrecognized sec tion and content) 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 Relationship Specialty Start Date End Date Diane Terrell MD [address] [place] [id number] PCP - General Family Medicine 04/02/16 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 Relationship Specialty Start Date End Date Diane Terrell MD [address] [place], [place] [phone] PCP - General Family Medicine 04/02/16 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 This clinical summary was aggregated from multiple sources. Caution should be exercised in using it in the provision of clinical care. This summary normalizes information from multiple sources, and as a consequence, information in this document may materially change the coding, format and clinical context of patient data. In addition, data may be omitted in some cases. CLINICAL DECISIONS SHOULD BE BASED ON THE PRIMARY CLINICAL RECORDS. [facility]. provides no warranty or guarantee of the accuracy or completeness of information in this document.
[2023-05-27 10:48] LABS: Anion Gap 6 (5-15); BUN 19 mg/dL (7-18); BUN/Creat Ratio 17.9 RATIO (10-20); Calcium,Total 9.5 mg/dL (8.5-10.1); Chloride 102 mmol/L (98-107); Cholesterol 170 mg/dL (200); Creatinine, Serum 1.06 mg/dL (0.55-1.02); EST Glomerular Filtration Rate 54 mL/min (>60); Est Glom Filt Rate - Afr Amer 66 mL/min (>60); Glucose 154 mg/dL (74-106); High Density Lipoprotein 35 mg/dL; Potassium 3.2 mmol/L (3.5-5.1); Sodium Level 135 mmol/L (136-145); Triglycerides 283 mg/dL; Very Low Density Lipoprotein 57 mg/dL (5-40)
== END | disposition home or self-care (01) ==
LOC: MTLAB 08:29
PROVIDERS: PCP Family Medicine; Referring Provider Family Medicine; Visit Provider Family Medicine
DX: E11.69 Type 2 diabetes mellitus with other specified complication (principal); E11.22 Type 2 diabetes mellitus with diabetic chronic kidney disease; N18.30 Chronic kidney disease, stage 3 unspecified; E78.5 Hyperlipidemia, unspecified
CPT/HCPCS: 36415; 80048; 80061

== ENCOUNTER → 2023-08-21 | Outpatient (CLI) | payer MEDICARE, SELFPAY ==
[2023-08-21 11:25] LABS: Anion Gap 8 (5-15); BUN 25 mg/dL (7-18); BUN/Creat Ratio 21.4 RATIO (10-20); Calcium,Total 9.4 mg/dL (8.5-10.1); Chloride 103 mmol/L (98-107); Cholesterol 140 mg/dL (200); Creatinine, Serum 1.17 mg/dL (0.55-1.02); EST Glomerular Filtration Rate 49 mL/min (>60); Est Glom Filt Rate - Afr Amer 59 mL/min (>60); Glucose 148 mg/dL (74-106); High Density Lipoprotein 33 mg/dL; Potassium 3.6 mmol/L (3.5-5.1); Sodium Level 138 mmol/L (136-145); Triglycerides 242 mg/dL; Very Low Density Lipoprotein 48 mg/dL (5-40)
== END | disposition home or self-care (01) ==
LOC: MTLAB 07:08
PROVIDERS: PCP Family Medicine; Referring Provider Family Medicine; Visit Provider Family Medicine
DX: E11.69 Type 2 diabetes mellitus with other specified complication (principal); E87.6 Hypokalemia
CPT/HCPCS: 36415; 80048; 80061

== ENCOUNTER 2023-11-21 07:23 | Emergency (ER) | payer MEDICARE, SELFPAY ==
[2023-11-21 07:23] VITALS: BP 152/119; BP 169/110; PULSE 57; PULSE 71; RESP 20; RESP 22; TEMP 37.2; O2SAT 93; O2SAT 99; BMI 44.0
--- NOTE | 2023-11-21 07:32 | EKG12_ITS ---
Test Reason : ABD PAIN Blood Pressure : / mmHG Vent. Rate : 053 BPM Atrial Rate : 053 BPM P-R Int : 432 ms QRS Dur : 090 ms QT Int : 484 ms P-R-T Axes : 058 -14 060 degrees QTc Int : 454 ms Sinus bradycardia with 1st degree A-V block with Premature atrial complexes Low voltage QRS Borderline ECG Confirmed by NEMESIO PRIEST, MONTY ([id number]), legal editor CONRAD LEWIS ([id number]) on 11/25/2023 1:57:50 PM Referred By: KYLER Confirmed By:ASTON HERR MD
--- NOTE | 2023-11-21 07:33 | EDS_ITS ---
HPI History of Present Illness Chief Complaint: Abd Pain Informant: patient Onset/Context/Timing Onset: Today Narrative Narrative: Patient presents secondary to left lower quadrant abdominal pain. She got up to go the restroom at 5 AM. She felt as if she needed to have a bowel movement but was unable to. She has not been able to pass gas or have a bowel movement. She complains of pain developing the left lower quadrant and around to the left lateral abdominal wall. She states about an hour ago she started feeling lightheaded and dizzy secondary to the pain and nausea. She has had dry heaves. [facility] Medical History Wears glasses Post-menopausal Alcohol use Diabetes Arthritis Anemia Migraine headache History of diverticulitis Gastric reflux Former smoker Leg cramps History of stress test History of rheumatic fever History of irregular heartbeat Infected sebaceous cyst of skin Sebaceous cyst Incisional hernia, incarcerated Acute respiratory distress HTN (hypertension) Diverticulitis of sigmoid colon Home Medications ?Medication ?Instructions ?Recorded ?Last Taken ?Type albuterol sulfate 90 mcg/actuation 1 puff inhalation Q6H PRN PRN Sob 05/06/18 07/15/18 05:00 History aerosol inhaler &/Or Wheezing esomeprazole magnesium 20 mg 20 mg PO PRN PRN Indigestion 05/06/18 07/15/18 05:00 History capsule,delayed release polyethylene glycol 3350 17 gram 17 g PO DAILY STOOL SOFTENER 07/03/18 Unknown History oral powder packet acetaminophen 500 mg capsule 500 mg PO Q6H PRN Pain 05/13/22 Unknown History cholecalciferol (vitamin D3) 125 125 mcg PO DAILY 05/13/22 11/20/23 History mcg (5,000 unit) capsule metformin 500 mg tablet,extended 500 mg PO DAILY 05/13/22 11/20/23 History release 24 hr atorvastatin 10 mg tablet 10 mg PO DAILY 11/21/23 11/20/23 History empagliflozin 10 mg tablet 10 mg PO 11/21/23 11/20/23 History (Jardiance) hydrocodone-acetaminophen 5-325mg 1 tab PO Q6H PRN PRN Pain 3 days 11/21/23 Unknown Rx 5mg-325mg #10 TABLETS ketorolac 10 mg tablet 10 mg PO BID PRN PRN pain 4 days 11/21/23 Unknown Rx #8 tabs lisinopril 20 1 tab PO DAILY 11/21/23 11/20/23 History mg-hydrochlorothiazide 12.5 mg tablet ondansetron 4 mg disintegrating 4 mg PO Q8H PRN PRN Nausea #10 tabs 11/21/23 Unknown Rx tablet potassium chloride 20 mEq 20 meq PO DAILY 11/21/23 11/20/23 History tablet,extended release tamsulosin 0.4 mg capsule (Flomax) 0.4 mg PO DAILY #7 caps 11/21/23 Unknown Rx Allergy/AdvReac Type Severity Reaction Status Date / Time amlodipine (From [facility]) Allergy Unknown PT UNSURE Verified 11/21/23 07:32 OF REACTION Penicillins Allergy Hives Verified 11/21/23 07:32 Family History Mother Heart disease Surgical History History of excision of mass History of cardiac catheterization Hx of colonoscopy Previous section S/P appendectomy S/P hysterectomy S/P laparoscopic cholecystectomy Status post bilateral knee replacements Social History Smoking Status: Former smoker alcohol intake: never substance use type: does not use ROS ROS ED Constitutional Constitutional ED: Denies chills or fever(s) Eyes Eyes: Denies discharge from eye(s) ENT ENT ED: Denies discharge from eye(s), rhinorrhea or sore throat Cardiovascular Cardiovascular: Denies chest pain or palpitations Respiratory/Chest Respiratory/Chest: Denies cough or dyspnea Gastrointestinal Gastrointestinal: Reports abdominal pain and nausea; Denies diarrhea or vomiting Genitourinary Genitourinary ED: Denies dysuria Musculoskeletal Musculoskeletal: Denies back pain or extremity pain Integumentary Denies Abrasions or rash Neurologic Neurologic: Denies headache(s) or weakness Psychiatric Psychiatric: Denies anxiety or depression Allergic/Immunologic Allergic/Immunologic ED: Denies lip swelling or urticaria EXAM Physical Exam Const Vital Signs: 11/21/23 07:23 11/21/23 07:23 Temperature 99 F Temperature Source Temporal Pulse Rate 57 L 71 Respiratory Rate 22 H 20 H Blood Pressure 169/110 H 152/119 H Blood Pressure Mean 129 130 Pulse Ox 99 93 Oxygen Delivery Method Room Air Room Air Positive well nourished and well developed General Appearance ED: well developed HEENT Reports moist mucous membranes Eyes EOMs intact bilaterally Chest Wall inspection of chest normal and palpation of chest normal Resp normal respiratory effort and clear to auscultation bilaterally Cardio regular rate and regular rhythm GI GI Narrative: Abdomen soft with tenderness to the left lower quadrant. No bowel sounds on auscultation. Patient has a ventral wall hernia that is soft. Extremity normal to inspection Neuro oriented x3 and no sensory deficits noted Motor Exam: strength 5/5 throughout Psych Mood & Affect: anxious Skin no rashes or lesions noted MDM MDM MDM Narrative Medical decision making narrative: IV line established. Patient given morphine and Zofran. IV fluids initiated. Labwork obtained to evaluate for leukocytosis, anemia, and electrolyte derangement. CT scan abdomen pelvis with IV contrast to be obtained to evaluate for diverticulitis and rule out perforation. Also the differential is ureteral lithiasis, colitis, and bowel obstruction. History & Record Review Discussion w/independent historian: Patient Lab Data Attestation: I reviewed the patient's lab results. Labs: Laboratory Results - last 24 hr 11/21/23 11/21/23 07:47 08:36 WBC 12.3 H RBC 4.85 Hgb 13.4 Hct 41.9 MCV 86.4 MCH 27.6 MCHC 32.0 RDW Std Deviation 44.3 H RDW Coeff of Kali 14.1 Plt Count 327 MPV 12.3 H Immature Gran % (Auto) 0.900 Neut % (Auto) 71.5 H Lymph % (Auto) 19.4 Bent % (Auto) 5.8 Eos % (Auto) 1.7 Baso % (Auto) 0.7 Absolute Neuts (auto) 8.8 H Absolute Lymphs (auto) 2.39 Nucleated RBC % 0 Sodium 137 Potassium 3.5 Chloride 105 Carbon Dioxide 23.0 Anion Gap 9 BUN 23 H Creatinine 1.42 H Estim Creat Clear Calc 48.82 Est GFR (MDRD) Af Amer 47 L Est GFR (MDRD) Non-Af 39 L BUN/Creatinine Ratio 16.2 Glucose 219 H Calcium 9.7 Urine Color Yellow Urine Clarity Clear Urine pH 5.0 Ur Specific [place] 1.015 Urine Protein 15 H Urine Glucose (UA) 1000 H Urine Ketones 5 H Urine Occult Blood 250 H Urine Nitrite Negative Urine Bilirubin Negative Urine Urobilinogen Normal Ur Leukocyte Esterase 25 H Urine RBC 10-25 SEEN Urine WBC 0-5 SEEN Ur Squamous Epith Cells 0-5 SEEN Urine Bacteria 1+ Urine Mucus 0 SEEN Radiography Diagnostic Testing: Clinical Impression(s) from Imaging Studies Abdomen/Pelvis CT 11/21/23 08:15 IMPRESSION: Left hydronephrosis and hydroureter due to a 6.6 mm calculus at the left ureterovesical junction. Left perinephric and periureteric stranding. Stable left paraumbilical abdominal ventral hernia containing nondilated portion of the transverse colon. The neck of the hernia measures 3.6 cm. Electronically Signed: Kel Quinn MD at 8:45 EDT , EKG Initial EKG: Attestation: I personally reviewed and interpreted this EKG as follows: Interpretation: Sinus Bradycardia (Sinus bradycardia 53 bpm with first- degree AV block. No acute ischemia.) Treatment and Re-Evaluation :: CBC was a white count of 12.3 with 71% neutrophils. Hemoglobin is 13.4. Chemistry studies reveal a BUN of 23 and a creatinine 1.42. This is only slightly bumped over her baseline. Glucose is 219. Urinalysis reveals 1+ bacteria with 0-5 white cells. 10-[address] flank reveals left hydronephrosis and hydroureter due to a 6.6 mm calculus at the left UVJ. Mild left perinephric and periureteral stranding noted. Stable left periumbilical abdominal hernia is noted. After I reviewed patient's CT and noted the renal stone, she was given a dose of 15 mg of IV Toradol. Patient states this significantly improved her pain. Test results were discussed with patient as well as at bedside. Stone does appear to be oblong in shape and is already at the UVJ. I think she will likely pass this into the bladder. She will be given Flomax as well as Blair, Toradol, and Zofran. She will be referred to urology for follow-up if not improving. Return instructions were also provided. Discharge Plan Triage Chief Complaint: Abd Pain ED Provider: Mala Navarro Dx/Rx/DC Orders Clinical Impression: Ureterolithiasis Instructions: ED Kidney Stone with Pain Prescriptions: New ketorolac 10 mg tablet 10 mg PO BID PRN PRN (Reason: pain) 4 Days Qty: 8 0RF ondansetron 4 mg tablet,disintegrating 4 mg PO Q8H PRN PRN (Reason: Nausea) Qty: 10 0RF tamsulosin [Flomax] 0.4 mg capsule 0.4 mg PO DAILY Qty: 7 0RF hydrocodone-acetaminophen 5-325 mg tablet 1 tab PO Q6H PRN PRN (Reason: Pain) 3 Days Qty: 10 0RF No Action acetaminophen 500 mg capsule 500 mg PO Q6H PRN (Reason: Pain) cholecalciferol (vitamin D3) 125 mcg (5,000 unit) capsule 125 mcg PO DAILY metformin 500 mg tablet extended release 24 hr 500 mg PO DAILY albuterol sulfate 1 PUFF inhaler 1 puff inhalation Q6H PRN PRN (Reason: Sob &/Or Wheezing) esomeprazole magnesium 20 MG capsule 20 mg PO PRN PRN (Reason: Indigestion) polyethylene glycol 3350 17 GM packet 17 g PO DAILY atorvastatin 10 mg tablet 10 mg PO DAILY lisinopril-hydrochlorothiazide 20-12.5 mg tablet 1 tab PO DAILY potassium chloride 20 mEq tablet extended release 20 meq PO DAILY Jardiance 10 mg tablet 10 mg PO Primary Care Provider: Joe Terrell Referrals: Joe Terrell MD [Primary Care Provider] - Kelsy Medel MD [Med Staff - Active Staff] - As Needed Print Language: Ghanaian Disposition Disposition: Home, Self Care
[2023-11-21] MEDS: 0.9% Normal Saline (1000mL) 1,000 ML 150 ML IV (07:38)
[2023-11-21] MEDS: Ondansetron 4 MG/2 ML Vial IV (07:38)
[2023-11-21] MEDS: Morphine 4 MG/ML Syringe IV (07:38)
[2023-11-21 07:53] LABS: Absolute Lymphocyte Count 2.39 X10^3/uL (0.83-4.51); Absolute Neutrophil Count 8.8 X10^3/uL (2.0-7.7); Basophil# 0.09 X10^3/uL; Basophil% 0.7 % (0-1); Eosinophil# 0.21 X10^3/uL; Eosinophils% 1.7 % (0-5); Hematocrit 41.9 % (37-47); Hemoglobin 13.4 g/dL (12.0-15.0); Lymphocyte # 2.39 X10^3/ul (0.83-4.51); Lymphocyte % 19.4 % (19-41); Mean Corpuscular Hgb 27.6 pg (27.0-32.0); Mean Corpuscular Volume 86.4 fL (81-99); Mean Platelet Vol. 12.3 fl (6.2-12.0); Monocyte# 0.72 X10^3/uL; Monocyte% 5.8 % (0-10); NRBC Flagged by Analyzer 0 % (0-5); Neutrophil # 8.79 X10^3/uL (2.7-7.7); Neutrophil % 71.5 % (47-70); Platelet Count 327 K/mm3 (150-450); RBC Distribution Width CV 14.1 % (11.6-14.6); RBC Distribution Width SD 44.3 fl (35.1-43.9); Red Blood Count 4.85 M/mm3 (4.2-5.4); White Blood Count 12.3 K/mm3 (4.4-11.0)
[2023-11-21 08:07] LABS: Anion Gap 9 (5-15); BUN 23 mg/dL (7-18); BUN/Creat Ratio 16.2 RATIO (10-20); Calcium,Total 9.7 mg/dL (8.5-10.1); Chloride 105 mmol/L (98-107); Creatinine, Serum 1.42 mg/dL (0.55-1.02); EST Glomerular Filtration Rate 39 mL/min (>60); Est Glom Filt Rate - Afr Amer 47 mL/min (>60); Estimated Creatinine Clearance 48.82 ml/min; Glucose 219 mg/dL (74-106); Potassium 3.5 mmol/L (3.5-5.1); Sodium Level 137 mmol/L (136-145)
--- NOTE | 2023-11-21 08:15 | CT_ITS ---
STUDY: CT ABDOMEN AND PELVIS WITH CONTRAST REASON FOR EXAM: Female, 73 years old. LLQ pain RADIATION DOSAGE (If Supplied By Facility): CTDIvol = ( 16.94 ) mGy, DLP = ( 1355.88 ) mGycm TECHNIQUE: Transaxial images were obtained from the dome of the diaphragm to the symphysis pubis without oral contrast. IV 75mL [id number]-[id number] was administered. Sagittal and coronal images were reconstructed. Individualized dose optimization techniques were used for this CT. COMPARISON: Comparison is made with prior study dated November 03, 2018. FINDINGS: The visualized lung bases are unremarkable. Coronary artery calcification. There is calcification of the mitral valve annulus. There is decreased attenuation of the liver consistent with steatosis. There are surgical clips in the gallbladder fossa consistent with a prior cholecystectomy. Normal spleen. Normal pancreas. Normal bilateral adrenal glands. Normal right kidney. There is engorgement of the left kidney. Mild degree of left hydronephrosis and hydroureter due to a 6.6 mm calculus at the left ureterovesical junction. There is evidence of left perinephric and periureteric stranding. Normal visualized stomach. Normal small intestine. There are multiple colonic diverticula consistent with diverticulosis. The patient is status post appendectomy. There is diffuse atherosclerotic calcification of the abdominal aorta and its major visceral branches, without a demonstrated aneurysm. Normal inferior vena cava. Normal retroperitoneum. Normal urinary bladder. Once again, there is evidence of a left paraumbilical abdominal hernia. A portion of a nondilated transverse colon is seen within it. The neck of the hernia measures 3.6 cm. This is unchanged. Grade 2 anterolisthesis of L5 on S1 with spondylolysis of the pars interarticularis of the L5 vertebra. CT/Abdomen/Pelvis W IV Cont ONLY IMPRESSION: Left hydronephrosis and hydroureter due to a 6.6 mm calculus at the left ureterovesical junction. Left perinephric and periureteric stranding. Stable left paraumbilical abdominal ventral hernia containing nondilated portion of the transverse colon. The neck of the hernia measures 3.6 cm. Electronically Signed: Kel Quinn MD at 8:45 EDT ,
[2023-11-21 08:41] LABS: Mucous, Urine 0 SEEN /hpf (<or=2+)
[2023-11-21] MEDS: Ketorolac 15 MG/ML Vial IV (08:41)
[2023-11-21 08:45] LABS: Color, Urine Yellow (Yellow); Glucose, Dipstick 1000 mg/dl (Normal); Ketone-Dipstick 5 mg/dl (Negative); Leukocyte Esterase-Dipstick 25 /ul (Negative); Nitrite-Dipstick Negative (Negative); Occult Blood-Urine 250 /ul (Negative); Protein-Dipstick 15 mg/dl (Negative); Specific Gravity, Urine 1.015 (1.002-1.030); Urine Bilirubin Dipstick Negative (Negative); Urine Clarity Clear (Clear); Urine Urobilinogen Normal (Normal)
[2023-11-21 09:01] LABS: Bacteria 1+ /hpf (None Seen); Red Blood Cells-Urine 10-25 SEEN /hpf (0-5); Squamous Epithelial Cells - UA 0-5 SEEN /hpf (5-10); White Blood Cells 0-5 SEEN /hpf (0-5)
[2023-11-21 09:23] VITALS: BP 127/73; PULSE 55; RESP 16; TEMP 36.3; O2SAT 97; O2SAT 98
== END 2023-11-21 09:33 | disposition home or self-care (01) ==
PROVIDERS: Emergency Provider Emergency Medicine; PCP Family Medicine; Visit Provider Emergency Medicine
DX: N13.2 Hydronephrosis with renal and ureteral calculous obstruction (principal); E11.9 Type 2 diabetes mellitus without complications; I10 Essential (primary) hypertension; Z79.84 Long term (current) use of oral hypoglycemic drugs; Z79.899 Other long term (current) drug therapy; Z87.891 Personal history of nicotine dependence
CPT/HCPCS: 74177; 80048; 81001; 85025; 93005; 96361; 96374; 96375; 99284; J7030; Q9967; A4216; J2405

== ENCOUNTER → 2024-03-16 | Outpatient (CLI) | payer MEDICARE, SELFPAY ==
[2024-03-16 10:08] LABS: Vitamin D,25 Hydroxy 36.9 ng/mL
[2024-03-16 10:32] LABS: AST(SGOT) 12 U/L (15-37); Alanine Aminotransfer ALT/SGPT 19 U/L (13-56); Albumin, Serum 3.6 g/dL (3.2-5.0); Alkaline Phosphatase 98 U/L (45-117); Anion Gap 8 (5-15); BUN 29 mg/dL (7-18); BUN/Creat Ratio 26.1 RATIO (10-20); Calcium,Total 9.4 mg/dL (8.5-10.1); Chloride 107 mmol/L (98-107); Cholesterol 126 mg/dL (200); Creatinine, Serum 1.11 mg/dL (0.55-1.02); EST Glomerular Filtration Rate 51 mL/min (>60); Est Glom Filt Rate - Afr Amer 62 mL/min (>60); Globulin 3.7 g/dL (2.2-4.2); Glucose 151 mg/dL (74-106); High Density Lipoprotein 37 mg/dL; Potassium 3.5 mmol/L (3.5-5.1); Protein, Total 7.3 g/dL (6.4-8.2); Sodium Level 140 mmol/L (136-145); Triglycerides 218 mg/dL; Very Low Density Lipoprotein 44 mg/dL (5-40)
[2024-03-16 11:12] LABS: Hemoglobin A1c 6.5 % (3.8-5.6)
== END | disposition home or self-care (01) ==
LOC: MTLAB 08:33
PROVIDERS: PCP Family Medicine; Referring Provider Family Medicine; Visit Provider Family Medicine
DX: Z00.00 Encounter for general adult medical examination without abnormal findings (principal)
CPT/HCPCS: 36415; 80053; 80061; 82306; 83036; 84443

== ENCOUNTER → 2024-05-07 | Outpatient (CLI) | payer MEDICARE, SELFPAY ==
--- NOTE | 2024-05-07 10:41 | BI_ITS ---
MAMMOGRAPHY - BILATERAL SCREENING REASON FOR EXAM: Female, 73 years old. Routine annual screening examination. PERTINENT HISTORY: Non-contributory. TECHNIQUE: Digital bilateral breast jonathan (3D mammographic acquisition) in the CC and MLO projections. 2-D mediolateral oblique (MLO) and craniocaudad (CC) views of both breasts were obtained. CAD: Full Field Digital Mammography with Computer Added Detection was performed. COMPARISON: Comparison is made with prior study dated April 03, 2023 and December 10, 2018. FINDINGS: Breast Composition: The breasts are heterogeneously dense, which may obscure small masses. There are no dominant masses or suspicious calcifications. There is asymmetry of breast tissue in the upper deep lateral aspect of the left breast. 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 Sonographic correlation recommended. Stable small benign-appearing bilateral axillary lymph nodes. No other significant abnormalities are identified. BI/SCRN MAMM (CAD)W/JONATHAN BILAT IMPRESSION: Asymmetry of breast tissue in the upper deep lateral aspect of the left breast as described. Sonographic correlation recommended. ASSESSMENT CATEGORY: BIRADS Category 0: Incomplete. Need additional imaging evaluation. A letter regarding these results will be sent to the patient by the facility within 30 days. Approximately 10% of breast cancers are not detected by mammography. A normal mammogram should not delay biopsy of a clinically suspicious abnormality. [id number] Electronically Signed: Kel Quinn MD at 11:54 EST ,
== END | disposition home or self-care (01) ==
LOC: OPBI 10:39
PROVIDERS: PCP Family Medicine; Referring Provider Family Medicine; Visit Provider Family Medicine
DX: Z12.31 Encounter for screening mammogram for malignant neoplasm of breast (principal)
CPT/HCPCS: 77063; 77067

== ENCOUNTER → 2024-05-10 | Outpatient (CLI) | payer MEDICARE, SELFPAY ==
--- NOTE | 2024-05-10 09:28 | US_ITS ---
STUDY: ULTRASOUND BREAST - LEFT REASON FOR EXAM: Female, 73 years old. Abnormal screening mammogram. TECHNIQUE: Axial and longitudinal images of the LEFT breast were performed with a high resolution ultrasound transducer. # OF IMAGES: 42 COMPARISON: Comparison is made with prior mammogram dated May 07, 2024. FINDINGS: LEFT Breast: The upper-outer quadrant of the left breast was examined with ultrasound. There is dense fibroglandular tissue. No focal masses seen. Incidental note is made of a retroareolar ductal dilatation. US/Breast Limited Unilateral IMPRESSION: Dense fibroglandular tissue. Subareolar ductal dilatation. ASSESSMENT CATEGORY: BIRADS Category 2: Benign. A letter regarding these results will be sent to the patient by the facility within 30 days. Electronically Signed: Kel Quinn MD at 10:51 EST ,
== END | disposition home or self-care (01) ==
LOC: OPUS 09:25
PROVIDERS: PCP Family Medicine; Referring Provider Family Medicine; Visit Provider Family Medicine
DX: R92.8 Other abnormal and inconclusive findings on diagnostic imaging of breast (principal)
CPT/HCPCS: 76642

== ENCOUNTER → 2024-10-13 | Outpatient (CLI) | payer MEDICARE, SELFPAY ==
--- NOTE | 2024-10-13 16:30 | RAD_ITS ---
PROCEDURE: FOOT MIN 3 VIEWS 10/13/2024 REASON FOR EXAM: LF FOOT DROPPPED IRON POT ON FOOT TECHNIQUE: FOOT MIN 3 VIEWS COMPARISON: None FINDINGS: Bones: No visible fracture. No suspicious bone lesion. Joints: Normal alignment. Soft tissues: Soft tissue swelling. Other: RAD/Foot min 3 Views IMPRESSION: Soft tissue swelling. No fracture seen. Reading Location: [place] [id number]
== END | disposition home or self-care (01) ==
LOC: MTRAD 16:28
PROVIDERS: PCP Family Medicine
DX: S99.921A Unspecified injury of right foot, initial encounter (principal)
CPT/HCPCS: 73630

== ENCOUNTER → 2025-03-17 | Outpatient (CLI) | payer MEDICARE, SELFPAY ==
[2025-03-17 12:48] LABS: Creatinine, Urine (random) 151.00 mg/dL (28.00-217.00); Microalbumin,Random Urine 21.4 mg/L (<20 mg/L)
[2025-03-17 12:58] LABS: AST(SGOT) 19 U/L (<=31); Alanine Aminotransfer ALT/SGPT 21 U/L (<=34); Albumin, Serum 4.3 g/dL (3.4-4.8); Alkaline Phosphatase 105 U/L (35-104); Anion Gap 15 (5-15); BUN 21 mg/dL (4-19); BUN/Creat Ratio 19.5 RATIO (10-20); Calcium,Total 9.9 mg/dL (7.6-11.0); Carbon Dioxide 23.6 mmol/L (21.0-32.0); Chloride 100 mmol/L (98-108); Cholesterol 113 mg/dL (<=200); Globulin 3.2 g/dL (2.2-4.2); Glucose 112 mg/dL (70-99); Low Density Lipoprotein Calc. 51 mg/dL; Potassium 3.4 mmol/L (3.3-5.1); Triglycerides 178 mg/dL; Very Low Density Lipoprotein 36 mg/dL (5-40); Vitamin B12 417 pg/mL (180-914); Vitamin D,25 Hydroxy 43.5 ng/mL (30-100); cholesterol:hdl ratio screen 3.47
== END | disposition home or self-care (01) ==
LOC: MTLAB 09:37
PROVIDERS: PCP Family Medicine; Referring Provider Family Medicine; Visit Provider Family Medicine
DX: E11.40 Type 2 diabetes mellitus with diabetic neuropathy, unspecified (principal); E55.9 Vitamin D deficiency, unspecified
CPT/HCPCS: 36415; 80053; 80061; 82043; 82306; 82570; 82607; 84443